=== PATIENT | male | born 1975 | race Caucasian/White ===

== ENCOUNTER 2018-05-30 11:47 | Outpatient (CLI) | payer OTHER, SELFPAY ==
[2018-05-30 12:50] LABS: Abs Immature Grans 0.04 k/cumm (0.0-0.09); Absolute Basophil Count 0.03 k/cumm (0.0-0.2); Absolute Monocyte Count 1.18 k/cumm (0.11-0.7); Basophils % 0.2; Eosinophils % 1.8; HCT 43.7 % (40.0-50.0); HGB 15.3 g/dL (13.5-17.5); Immature Grans % 0.3; Lymphocytes % 15.6; Mean Corpuscular Hemoglobin 31.4 pg (27.0-33.0); Mean Corpuscular Volume 89.5 fL (80-95); Mean Platelet Volume 11.5 fL (8.0-11.0); Neutrophils % 73.1; Platelet Count 202 x1000/uL (130-400); RBC 4.88 m/cumm (4.50-6.00); RBC Distribution Width 11.7 % (11.8-14.1)
[2018-05-30 12:51] LABS: Absolute Eosinophil Count 0.24 k/cumm (0.0-0.7); Absolute Lymphocyte Count 2.04 k/cumm (1.2-3.4); Absolute Neutrophil Count 9.58 k/cumm (1.2-6.7)
[2018-05-30 13:23] LABS: ALT 27 U/L (12-78); AST 20 U/L (15-37); Alkaline Phosphatase 109 U/L (46-116); Anion Gap 12.9 mmol/L (3-11); BUN 13 mg/dL (7-18); Bilirubin, Total 0.7 mg/dL (0.2-1.0); CO2 27.1 mmol/L (21.0-32.0); CREATININE 1.08 mg/dL (0.70-1.30); Calcium 9.8 mg/dL (8.5-10.1); Chloride 97 mmol/L (98-107); Glucose 96 mg/dL (70-100); Potassium 3.1 mmol/L (3.5-5.1); Sodium 137 mmol/L (136-145); TSH (W/Ref FT4) 1.77 uIU/mL (0.358-3.74); Total Protein 7.5 g/dL (6.4-8.2)
[2018-05-30 13:42] LABS: ESR 41 MM/HR (0-15)
== END 2018-05-30 12:07 ==
PROVIDERS: PCP Emergency Medicine; Visit Provider Internal Medicine
DX: R10.13 Epigastric pain (principal)
CPT/HCPCS: 36415; 80053; 85652; 84443; 85025

== ENCOUNTER 2018-05-30 13:18 | Emergency (ER) | payer OTHER, SELFPAY ==
[2018-05-30] VITALS (14 sets, daily range): BP systolic 201–234; BP diastolic 109–137; PULSE 81–88; RESP 10–20; TEMP 37.1; O2SAT 98–100
--- NOTE | 2018-05-30 13:34 | W.ED.GENAD ---
Discharge Plan Disposition Patient Disposition: HOME Condition: Stable Discharge Details Chief Complaint: Abd Prob Clinical Impression: Hypertension Primary Care Provider: Severo Potts ED Provider: Buddy Flores Home Meds and New Rx's Prescriptions: New hydrochlorothiazide 25 mg tablet 25 mg PO DAILY Qty: 30 RF: 0 Discharge Instructions Instructions: Hypertension (ED) Additional Instructions: follow up with your primary care provider in 1-2 weeks if you have severe abdominal pain or chest pain, difficulty breathing or persistent vomit return to the emergency department Medical Decision Making 43 yo male with no chronic medical problems though doesn't see pcp in over 8 years, comes in by ems for htn. Was seeing provider at [facility] as he has been having intermittent abdominal cramping and n/v since last . States he has no symptoms now, last had cramping in the lower abdomen this morning and vomit last night, denies chest pain or pressure. He is hypertensive here otherwise stable vitals and has no pain in the chest and no abdominal tenderness. Given his lack of symptoms now do not feel imaging indicated as he has no tenderness or exam findings to suggest appendicitis or other surgical pathology. given lack of chest pain or pressure doubt acs, but will check troponin to see if this was the cause of his vomit last night. Pt remains asymptomatic and labs unremarkable. Will start on antihypertensive and also give zofran to use prn, and advised f/u with pcp if abd cramping continues and return if worsening or if he has chest pain/pressure or sob Differential Diagnosis ibs, crohn's, asymptomatic htn Lab Data Lab results reviewed: Yes I reviewed the patient's lab results. ECG Data Attestation: I personally reviewed and interpreted this ECG (s) as follows: Prior ECG tracings: not available for review Interpretation: sinus rhythm, rate of 86, pr 156, lvh HPI General Mode of arrival: EMS. Date/Time Provider Initiated Documentation: 05/30/18 13:25. Limitations to Documentation: no limitations. Information obtained by: patient. History of Present Illness 43 year old M presents to the emergency department with the chief complaint of high blood pressure, Patient started experiencing this unknown Patient notes other (abdominal cramping). Patient did receive the following treatments prior to arrival, none Related Data Home Medications Medication Instructions Recorded Confirmed hydrochlorothiazide 25 mg PO DAILY #30 tab 05/30/18 Previous Rx's Medication Instructions Recorded hydrochlorothiazide 25 mg PO DAILY #30 tab 05/30/18 Allergies Allergy/AdvReac Type Severity Reaction Status Date / Time No Known Allergies Allergy Verified 05/30/18 13:26 General Stated Complaint: Abd Prob SHADY: 2 Review of Systems Review of Systems All systems reviewed & are unremarkable except as noted in HPI and below Constitutional Denies chills, Denies fever(s) and Denies weakness Eyes Denies loss of vision ENT Denies change in voice Cardiovascular Denies chest pain and Denies dyspnea Respiratory Denies dyspnea Genitourinary Denies dysuria Musculoskeletal Denies joint swelling Integumentary/Breasts Denies rash Neurologic Denies loss of vision and Denies weakness Psychiatric Denies depression Endocrine Denies cold intolerance and Denies heat intolerance Allergic/Immunologic Denies urticaria PFSH Social History Smoking/Tobacco Use Status: Current every day Exam Const General: no acute distress Orientation: alert HENMT Head: normal to inspection Ears: external ears normal General nose exam: external nose normal Mouth: moist mucous membranes Eyes General: appearance normal, both eyes and all related structures Neck Neck: normal visual inspection Resp Effort & Inspection: normal respiratory effort and able to speak in complete sentences Cardio Rate: regular rate Skin General skin exam: no rashes or lesions noted Neuro General: alert and oriented x3 Extrem General: normal to inspection Psych Mental Status: mental status grossly normal Course Vital Signs Temperature 37.1 C 05/30/18 13:23 Pulse 85 05/30/18 13:23 Respiratory Rate 13 05/30/18 13:23 Blood Pressure 234/121 H 05/30/18 13:23 Pulse Oximetry 100 05/30/18 13:23 Temperature 37.1 C 05/30/18 13:23 Temperature Source Temporal Artery Scan 05/30/18 13:23 Pulse 85 05/30/18 13:23 Respiratory Rate 13 05/30/18 13:23 Respiratory Effort Non-Labored 05/30/18 13:23 Blood Pressure 234/121 H 05/30/18 13:23 Blood Pressure Position Supine 05/30/18 13:23 Pulse Oximetry 100 05/30/18 13:23 Oxygen Delivery Method Room Air 05/30/18 13:23 Oxygen Flow Rate 0 05/30/18 13:23 Pain Level 0 05/30/18 13:23
--- NOTE | 2018-05-30 13:37 | ED.GENADUL_ITS ---
Discharge Plan Disposition Patient Disposition: HOME Condition: Stable Discharge Details Chief Complaint: Abd Prob Clinical Impression: Hypertension Primary Care Provider: Severo Potts ED Provider: Buddy Flores Home Meds and New Rx's Prescriptions: New hydrochlorothiazide 25 mg tablet 25 mg PO DAILY Qty: 30 RF: 0 Discharge Instructions Instructions: Hypertension (ED) Additional Instructions: follow up with your primary care provider in 1-2 weeks if you have severe abdominal pain or chest pain, difficulty breathing or persistent vomit return to the emergency department Medical Decision Making 43 yo male with no chronic medical problems though doesn't see pcp in over 8 years, comes in by ems for htn. Was seeing provider at [facility] as he has been having intermittent abdominal cramping and n/v since last . States he has no symptoms now, last had cramping in the lower abdomen this morning and vomit last night, denies chest pain or pressure. He is hypertensive here otherwise stable vitals and has no pain in the chest and no abdominal tenderness. Given his lack of symptoms now do not feel imaging indicated as he has no tenderness or exam findings to suggest appendicitis or other surgical pathology. given lack of chest pain or pressure doubt acs, but will check troponin to see if this was the cause of his vomit last night. Pt remains asymptomatic and labs unremarkable. Will start on antihypertensive and also give zofran to use prn, and advised f/u with pcp if abd cramping continues and return if worsening or if he has chest pain/pressure or sob Differential Diagnosis ibs, crohn's, asymptomatic htn Lab Data Lab results reviewed: Yes I reviewed the patient's lab results. ECG Data Attestation: I personally reviewed and interpreted this ECG (s) as follows: Prior ECG tracings: not available for review Interpretation: sinus rhythm, rate of 86, pr 156, lvh HPI General Mode of arrival: EMS . Date/Time Provider Initiated Documentation: 05/30/18 13:25 . Limitations to Documentation: no limitations . Information obtained by: patient . History of Present Illness 43 year old M presents to the emergency department with the chief complaint of high blood pressure, Patient started experiencing this unknown Patient notes other (abdominal cramping). Patient did receive the following treatments prior to arrival, none Related Data Home Medications Medication Instructions Recorded Confirmed hydrochlorothiazide 25 mg PO DAILY #30 tab 05/30/18 Previous Rx's Medication Instructions Recorded hydrochlorothiazide 25 mg PO DAILY #30 tab 05/30/18 Allergies Allergy/AdvReac Type Severity Reaction Status Date / Time No Known Allergies Allergy Verified 05/30/18 13:26 General Stated Complaint: Abd Prob SHADY: 2 Review of Systems Review of Systems All systems reviewed & are unremarkable except as noted in HPI and below Constitutional Denies chills, Denies fever(s) and Denies weakness Eyes Denies loss of vision ENT Denies change in voice Cardiovascular Denies chest pain and Denies dyspnea Respiratory Denies dyspnea Genitourinary Denies dysuria Musculoskeletal Denies joint swelling Integumentary/Breasts Denies rash Neurologic Denies loss of vision and Denies weakness Psychiatric Denies depression Endocrine Denies cold intolerance and Denies heat intolerance Allergic/Immunologic Denies urticaria PFSH Social History Smoking/Tobacco Use Status: Current every day Exam Const General: no acute distress Orientation: alert HENMT Head: normal to inspection Ears: external ears normal General nose exam: external nose normal Mouth: moist mucous membranes Eyes General: appearance normal, both eyes and all related structures Neck Neck: normal visual inspection Resp Effort & Inspection: normal respiratory effort and able to speak in complete sentences Cardio Rate: regular rate Skin General skin exam: no rashes or lesions noted Neuro General: alert and oriented x3 Extrem General: normal to inspection Psych Mental Status: mental status grossly normal Course Vital Signs Temperature 37.1 C 05/30/18 13:23 Pulse 85 05/30/18 13:23 Respiratory Rate 13 05/30/18 13:23 Blood Pressure 234/121 H 05/30/18 13:23 Pulse Oximetry 100 05/30/18 13:23 Temperature 37.1 C 05/30/18 13:23 Temperature Source Temporal Artery Scan 05/30/18 13:23 Pulse 85 05/30/18 13:23 Respiratory Rate 13 05/30/18 13:23 Respiratory Effort Non-Labored 05/30/18 13:23 Blood Pressure 234/121 H 05/30/18 13:23 Blood Pressure Position Supine 05/30/18 13:23 Pulse Oximetry 100 05/30/18 13:23 Oxygen Delivery Method Room Air 05/30/18 13:23 Oxygen Flow Rate 0 05/30/18 13:23 Pain Level 0 05/30/18 13:23
[2018-05-30] MEDS: Hydrochlorothiazide 25 MG TAB PO (13:45)
[2018-05-30 14:05] LABS: Troponin I < 0.02 ng/mL (0.00-0.06)
== END 2018-05-30 14:40 | disposition home or self-care (01) ==
PROVIDERS: Emergency Provider Emergency Medicine; PCP Emergency Medicine
DX: I10 Essential (primary) hypertension (principal); R10.9 Unspecified abdominal pain; R11.2 Nausea with vomiting, unspecified
CPT/HCPCS: 36415; 93005; 99284; 84484; 93010

== ENCOUNTER 2018-05-31 09:15 | Emergency (ER) | payer OTHER, SELFPAY ==
[2018-05-31 09:20] VITALS: BP 206/133; PULSE 94; RESP 18; TEMP 36.5; O2SAT 100
--- NOTE | 2018-05-31 09:26 | ED.GENADUL_ITS ---
Discharge Plan Disposition Patient Disposition: HOME Condition: Stable Discharge Details Chief Complaint: Abd Prob Clinical Impression: Pancreatitis, Hypertension Primary Care Provider: Severo Potts ED Provider: Buddy Flores Home Meds and New Rx's Prescriptions: New oxycodone 5 mg tablet, oral only 5 mg PO Q4H PRN (Reason: pain) Qty: 10 RF: 0 Continue potassium chloride 10 mEq capsule, extended release 10 meq PO BID Qty: 14 RF: 2 ondansetron 8 mg tablet,disintegrating 8 mg PO BID PRN (Reason: nausea and vomiting) Qty: 10 RF: 2 hydrochlorothiazide 25 mg tablet 25 mg PO DAILY Qty: 30 RF: 0 Discharge Instructions Instructions: Pancreatitis (ED) Additional Instructions: follow up with your primary care provider in 1-2 weeks if you have severe pain you can take oxycodone 1 tablet every 4 hours avoid alcohol if you have severe worsening of pain, difficulty breathing or high fevers return to the emergency department Medical Decision Making pt comes in with intermittent abdominal cramping and n/v worse at night for about a week. Was sent here from pcp's office yesterday for asymptomatic htn and had negative labs and sent home. AGain had cramping last night and this AM so came here and had cp with vomit so came here. HAs mild epigastric pain. Given his HTN and abd pain and chest pain will eval for dissection and also pancreatitis/hepatitis and monitor labs show lipase of over 1000 and K of 2.9 otherwise unremarkable. Awaiting imaging. Still no pain or n/v here, toleating po PT's CTA per Dr. Santamaria shows evidence of pancreatitis, no gallstones or other significant pathology and trigycerides normal. He states he was dirnking alcohol daily but hasn't for over a week. He is tolerating PO and has no pain now so feel he is stable for outpatient management. He will f/u with his pcp and return precautions given Differential Diagnosis dissection, ibs, pancreatitis Lab Data Lab results reviewed: Yes I reviewed the patient's lab results. ECG Data Attestation: I personally reviewed and interpreted this ECG (s) as follows: Prior ECG tracings: not available for review Interpretation: sinus rhythm, rate of 86 pr 150, no acute st t wave ischemic changes HPI General Mode of arrival: ambulatory . Date/Time Provider Initiated Documentation: 05/31/18 09:19 . Limitations to Documentation: no limitations . Information obtained by: patient . History of Present Illness 43 year old M presents to the emergency department with the chief complaint of abdominal cramping, with intensity rated at 5. Quality is described as aching, Patient reports no radiation. Patient started experiencing this week (s) (1) and it has been intermittent. No relieving factors improve symptom(s ), No exacerbating factors reported . Patient notes nausea/vomiting. Related Data Home Medications Medication Instructions Recorded Confirmed hydrochlorothiazide 25 mg PO DAILY #30 tab 05/30/18 05/31/18 ondansetron 8 mg disintegrating 8 mg PO BID PRN #10 tab 05/30/18 05/31/18 tablet potassium chloride ER 10 mEq 10 meq PO BID #14 cap 05/30/18 05/31/18 capsule,extended release oxycodone 5 mg PO Q4H PRN #10 tab 05/31/18 Previous Rx's Medication Instructions Recorded hydrochlorothiazide 25 mg PO DAILY #30 tab 05/30/18 ondansetron 8 mg disintegrating 8 mg PO BID PRN #10 tab 05/30/18 tablet potassium chloride ER 10 mEq 10 meq PO BID #14 cap 05/30/18 capsule,extended release oxycodone 5 mg PO Q4H PRN #10 tab 05/31/18 Allergies Allergy/AdvReac Type Severity Reaction Status Date / Time No Known Allergies Allergy Verified 05/31/18 09:24 General Stated Complaint: Abd Prob SHADY: 3 Review of Systems Review of Systems All systems reviewed & are unremarkable except as noted in HPI and below Constitutional Denies chills, Denies fever(s) and Denies weakness Eyes Denies loss of vision ENT Denies change in voice Cardiovascular Denies dyspnea Respiratory Denies dyspnea Genitourinary Denies dysuria Musculoskeletal Denies joint swelling Integumentary/Breasts Denies rash Neurologic Denies loss of vision and Denies weakness Psychiatric Denies depression Endocrine Denies cold intolerance and Denies heat intolerance Allergic/Immunologic Denies urticaria Exam Const General: no acute distress Orientation: alert HENMT Head: normal to inspection Ears: external ears normal General nose exam: external nose normal Mouth: moist mucous membranes Eyes General: appearance normal, both eyes and all related structures Neck Neck: normal visual inspection Resp Effort & Inspection: normal respiratory effort and able to speak in complete sentences Cardio Rate: regular rate Skin General skin exam: no rashes or lesions noted Neuro General: alert and oriented x3 Extrem General: normal to inspection Psych Mental Status: mental status grossly normal Course Vital Signs Temperature 36.5 C 05/31/18 09:20 Pulse 94 H 05/31/18 09:20 Respiratory Rate 18 05/31/18 09:20 Blood Pressure 206/133 H 05/31/18 09:20 Pulse Oximetry 100 05/31/18 09:20 Temperature 36.5 C 05/31/18 09:20 Pulse 94 H 05/31/18 09:20 Respiratory Rate 18 05/31/18 09:20 Respiratory Effort 05/31/18 09:23 Blood Pressure 206/133 H 05/31/18 09:20 Blood Pressure Position Supine 05/31/18 09:20 Pulse Oximetry 100 05/31/18 09:20 Oxygen Delivery Method Room Air 05/31/18 09:20 Oxygen Flow Rate 0 05/31/18 09:20
[2018-05-31] MEDS: Normal Saline 1,000 ML 1000 ML IV (09:30)
[2018-05-31 09:43] LABS: Lactate-non-spesis 1.2 mmol/L (0.6-1.4)
[2018-05-31 09:45] LABS: Abs Immature Grans 0.05 k/cumm (0.0-0.09); Absolute Basophil Count 0.03 k/cumm (0.0-0.2); Absolute Eosinophil Count 0.18 k/cumm (0.0-0.7); Absolute Lymphocyte Count 1.98 k/cumm (1.2-3.4); Absolute Monocyte Count 1.48 k/cumm (0.11-0.7); Absolute Neutrophil Count 11.53 k/cumm (1.2-6.7); Basophils % 0.2; Eosinophils % 1.2; HCT 44.5 % (40.0-50.0); Immature Grans % 0.3; Mean Corpuscular Hemoglobin 31.6 pg (27.0-33.0); Mean Corpuscular Volume 87.9 fL (80-95); Mean Platelet Volume 11.4 fL (8.0-11.0); Monocytes % 9.7; Neutrophils % 75.6; Platelet Count 210 x1000/uL (130-400); RBC 5.06 m/cumm (4.50-6.00); RBC Distribution Width 11.6 % (11.8-14.1); White Blood Cell Count 15.25 k/cumm (4.4-10.8)
[2018-05-31 10:01] LABS: PTT Activated 30.3 sec (21.0-31.4); Prothrombin Time 11.2 sec (9.3-10.8)
[2018-05-31 10:05] LABS: INR 1.1 (1.0-3.5)
[2018-05-31 10:07] LABS: ALT 27 U/L (12-78); AST 16 U/L (15-37); Alkaline Phosphatase 115 U/L (46-116); Anion Gap 12.2 mmol/L (3-11); BUN 14 mg/dL (7-18); Bilirubin, Direct 0.19 mg/dL (0.00-0.20); Bilirubin, Total 0.8 mg/dL (0.2-1.0); CO2 27.8 mmol/L (21.0-32.0); CREATININE 1.06 mg/dL (0.70-1.30); Chloride 93 mmol/L (98-107); Glucose 107 mg/dL (70-100); Lipase 1031 U/L (73-393); Magnesium 1.8 mg/dL (1.8-2.4); Sodium 133 mmol/L (136-145); Total Protein 8.6 g/dL (6.4-8.2)
[2018-05-31 10:46] LABS: Potassium 2.9 mmol/L (3.5-5.1); Troponin I < 0.02 ng/mL (0.00-0.06)
--- NOTE | 2018-05-31 11:19 | DI.CT_ITS ---
SYMPTOM/DIAGNOSIS: HYPERTENSION, CHEST AND ABD PAIN, ? DISSECTION CTA CHEST, ABDOMEN AND PELVIS: CT angiography was performed with multi slice acquisition and multi planar and 3D reconstruction. CHEST: The thoracic aorta is intact. No evidence of an aneurysm or dissection. Heart size is within normal limits. No significant pericardial effusion is seen. No mediastinal or hilar adenopathy is present. No evidence of a pulmonary embolus is seen. The lungs are clear. The tracheobronchial tree is unremarkable. No effusion or pneumothorax is identified. IMPRESSION: Negative CTA of the chest ABDOMEN AND PELVIS: The liver, spleen, gallbladder, bile ducts, kidneys, ureters and bladder are all unremarkable. The reproductive organs are unremarkable. There is a 1.9 cm. adrenal nodule, likely reflecting an adenoma. The right adrenal gland appears unremarkable. There is enlargement of the body of the pancreas with peripancreatic inflammatory changes. There is an area of decreased attenuation seen within the body of the pancreas. The findings likely reflect acute pancreatitis with an area of pancreatic necrosis. The area of necrosis accounts for less than 15% of the pancreas. No peripancreatic fluid collections are seen to suggest abscess or pseudocyst. The bowel shows no evidence of obstruction or inflammation. The abdominal aorta is of normal caliber. No evidence of aneurysm or dissection is seen. The celiac artery, mesenteric arteries and renal arteries are all unremarkable without evidence of dissection or stenosis or occlusion. The bones are intact. IMPRESSION: 1. No evidence of arterial injury. 2. Findings consistent with acute pancreatitis with an area of necrosis which occupies less than 15% of the pancreas. No evidence of abscess or pseudocyst. The findings were discussed with Dr Flores on the date of the examination.
[2018-05-31] MEDS: Omnipaque 350 MG/ML 100 ML BTL IJ (11:22)
[2018-05-31] MEDS: Potassium Chloride 20 MEQ TABCR 40 MEQ PO (11:44)
[2018-05-31 12:02] LABS: Triglyceride 121 mg/dL (30-150)
[2018-05-31 12:48] VITALS: BP 198/99; PULSE 94; RESP 18; TEMP 36.5; O2SAT 100
== END 2018-05-31 12:49 | disposition home or self-care (01) ==
PROVIDERS: Emergency Provider Emergency Medicine; PCP Emergency Medicine
DX: K85.90 Acute pancreatitis without necrosis or infection, unspecified (principal); I10 Essential (primary) hypertension; R10.13 Epigastric pain; R11.2 Nausea with vomiting, unspecified; E87.6 Hypokalemia
CPT/HCPCS: 36415; 74177; 80053; 80076; 83690; 96360; 99285; 83605; 83735; 84478; 84484; 85025; 85610; 85730; J3490

== ENCOUNTER 2018-06-03 13:09 | Inpatient (IN) | payer OTHER, SELFPAY ==
[2018-06-03] VITALS (10 sets, daily range): BP systolic 191–226; BP diastolic 92–143; PULSE 81–100; RESP 16–18; TEMP 36.9–37.9; O2SAT 97–100
[2018-06-03] MEDS: Enoxaparin 40 MG/0.4 ML SYR SC (14:02)
[2018-06-03] MEDS: Lactated Ringers 1,000 ML 1000 ML IV (14:19)
[2018-06-03] MEDS: Normal Saline Flush 10 ML SYR ×2 (14:20→16:32)
[2018-06-03] MEDS: Lactated Ringers 1,000 ML 150 ML IV ×2 (15:38→22:50)
--- NOTE | 2018-06-03 15:53 | HPE_ITS ---
Date of service: 06/03/18 Time of Service: 15:47 Assessment and Plan (1) Acute pancreatitis: Current visit: Yes Status: Acute Diagnosis of acute pancreatitis is previously been made at the emergency room valuation of 05/31/2018. Acute onset and findings on CAT scan and elevated lipase are all consistent with this diagnosis. He has failed conservative management as an outpatient, although his pancreatitis is classified as mild given lack of other organ involvement, will be admitted for supportive care and additional testing. Etiology of pancreatitis is uncertain. He did drink some alcohol, but denies recent heavy alcohol use. No gallstones were seen on CT scan, but I will get an ultrasound to specifically look for any biliary stones or ductal dilatation or sludge. CT did not show abnormal anatomy of the pancreas. Glycerides were normal. No history of trauma or other exposures. He is on hydrochlorthiazide, but this was started after the pancreatitis started. In fact, he was on no medications or supplements when the pancreatitis started. (2) Essential hypertension: Current visit: No Status: Acute Patient has severe hypertension despite the hydrochlorothiazide and metoprolol that has been started in the last week. And added lisinopril for now , but I have also ordered renin level and aldosterone. With his low potassium he may have hyperaldosteronemia. No adrenal masses were noted. He had a recent normal thyroid level. He does not appear to be in alcohol withdrawal. (3) Hypokalemia: Current visit: Yes Status: Acute This may be related to vomiting, but hyperaldosteronemia is also in the differential. He has been taking oral potassium. I will check the levels with labs. (4) DVT prophylaxis: Current visit: Yes Status: Acute Low molecular weight heparin. (5) Discharge planning issues: Current visit: Yes Status: Acute Full code. History of Present Illness Chief Complaint: abdominal pain Narrative: 43-year-old with only known past medical history of untreated hypertension who presents with 11 days of nausea and vomiting associated with crampy abdominal pain associated with eating. Patient states his symptoms started with acute nausea and vomiting 11 days ago. On , 23 May he was at a friend's house eating dinner. He states he ate pork ribs of mashed potatoes, and had 2 beers with dinner exactly. Nobody else ate the dinner got sick. Before that night, last time he had any alcohol was May 17 at a [employer]. Since the night of the , he has had persistent nausea and vomiting with eating. Associated with sharp to crampy pain across his epigastrium and poor appetite and frequent belching.. Even drinking more than a few sips gives him stomach cramps and nausea. He has lost 15 pounds over the last 2 weeks. He has not had diarrhea, blood in stool, or other bowel changes. The vomitus has been watery. Was seen by his primary care on the , then in the emergency room on the and the . He was diagnosed with pancreatitis on the with lipase over thousand and CAT scan showing pancreatitis. Elected to try to manage as an outpatient, but has been unable to take adequate adequate p.o. fluids. He has never had these symptoms previously. He denies any recent abdominal trauma. He denies taking any medication or supplements or drugs prior to onset of symptoms. He was given hydrochlorthiazide for his blood pressure, but this was started after the pancreatitis was diagnosed. He has not had any recent travel or new sexual partners. He states he has never had an alcohol use disorder, but has been cutting back deliberately in the past 2 months on his alcohol intake, in effort to feel better. Review of Systems Review of Systems Denies fevers or chills. Weight loss as above. Has had some frontal headaches , but not currently. No eye pain or vision changes or eye irritation. No sore throat or runny nose or mouth lesions. No heartburn. No diarrhea constipation. No dysuria or hematuria or penile discharge. No testicular pain. No chest pain, as felt like his heart is racing. No cough or shortness of breath. No rashes or other skin lesions. No joint swelling or new pain. No focal numbness or weakness or tremors or other abnormal movements. [facility] Medical History Amput below terence rosas (Acute) Social History Smoking/Tobacco Use Status: Current every day Meds Home Medications Medication Instructions Recorded Confirmed Type hydrochlorothiazide 25 mg PO DAILY #30 tab 05/30/18 06/03/18 Rx potassium chloride ER 10 mEq 10 meq PO BID #14 cap 05/30/18 06/03/18 Rx capsule,extended release metoprolol succinate ER 50 mg 50 mg PO BID #30 tab 06/01/18 06/03/18 Rx tablet,extended release 24 hr Allergies Allergy/AdvReac Type Severity Reaction Status Date / Time No Known Allergies Allergy Verified 06/03/18 10:42 Exam Narrative Exam Narrative: General: Alert and oriented x3, sitting in bed, no acute distress HEENT: Normocephalic atraumatic, pupils equal round reactive to light with extraocular motion intact. Conjunctive are clear with no icterus. Moist mucous membranes oropharynx benign. Neck is supple with no lymphadenopathy and normal thyroid. Lungs: Clear to auscultation bilaterally normal effort Cardiovascular: Regular rate and rhythm with no murmurs gallops or rubs Abdomen: Active bowel sounds, soft, mild to moderate tenderness across epigastrium, more on the left side, negative Terry's. No guarding or rebound. Extremities: No cyanosis, clubbing, or edema. Legs nontender to palpation. MSK: Normal joint movement, no joint swelling or redness Skin: No rashes, large bruises, or other skin lesions Neurologic: Cranial nerves grossly intact, normal speech, gait, coordination. No tremor. Psychiatric: Normal mood and affect, normal thought process Imaging: CT chest abdomen and pelvis with contrast 05/31/2018 showing no evidence of arterial injury. Findings consistent with acute pancreatitis and area of necrosis which occupies less than 15% of the pancreas. No evidence of abscess or pseudocyst. Negative CTA of the chest ESR: 41 Lipase: 1031 Triglycerides: 121 CBC, CMP, magnesium, coags, and cardiac troponins, all normal except low potassium and sodium of 133 Results Last Vital Signs Temp 36.9 C 06/03/18 15:36 Pulse 95 H 06/03/18 15:36 Resp 18 06/03/18 15:36 BP 226/139 H 06/03/18 15:36 Pulse Ox 100 06/03/18 15:36
[2018-06-03] MEDS: Pantoprazole 40 MG VIAL IVP (16:31)
[2018-06-03] MEDS: Metoprolol CR 50 MG TABCR PO (19:27)
[2018-06-03] MEDS: Labetalol 100 MG/20 ML VIAL 20 MG IVP (20:54)
[2018-06-03] MEDS: amLODIPine 5 MG TAB PO (21:12)
[2018-06-04] VITALS (10 sets, daily range): BP systolic 179–200; BP diastolic 93–108; PULSE 74–92; RESP 15–20; TEMP 36.7–37.5; O2SAT 97–99
[2018-06-04 06:50] LABS: Abs Immature Grans 0.04 k/cumm (0.0-0.09); Absolute Basophil Count 0.02 k/cumm (0.0-0.2); Absolute Eosinophil Count 0.29 k/cumm (0.0-0.7); Absolute Lymphocyte Count 1.42 k/cumm (1.2-3.4); Absolute Monocyte Count 1.38 k/cumm (0.11-0.7); Absolute Neutrophil Count 8.29 k/cumm (1.2-6.7); Basophils % 0.2; Eosinophils % 2.5; HCT 36.2 % (40.0-50.0); HGB 12.9 g/dL (13.5-17.5); Immature Grans % 0.3; Lymphocytes % 12.4; Mean Corp. HGB Concentration 35.6 g/dL (32.0-36.0); Mean Corpuscular Hemoglobin 31.4 pg (27.0-33.0); Mean Corpuscular Volume 88.1 fL (80-95); Monocytes % 12.1; Neutrophils % 72.5; Platelet Count 172 x1000/uL (130-400); RBC 4.11 m/cumm (4.50-6.00); RBC Distribution Width 11.3 % (11.8-14.1); White Blood Cell Count 11.44 k/cumm (4.4-10.8)
[2018-06-04 07:05] LABS: ALT 14 U/L (12-78); AST 12 U/L (15-37); Albumin 2.8 g/dL (3.4-5.0); Alkaline Phosphatase 93 U/L (46-116); Anion Gap 9.6 mmol/L (3-11); BUN 10 mg/dL (7-18); Bilirubin, Total 0.7 mg/dL (0.2-1.0); CO2 29.4 mmol/L (21.0-32.0); CREATININE 0.89 mg/dL (0.70-1.30); Calcium 8.9 mg/dL (8.5-10.1); Chloride 95 mmol/L (98-107); Cholesterol 164 mg/dL (50-200); Glucose 105 mg/dL (70-100); HDL Cholesterol 20 mg/dL (40-60); LDL CHOLESTEROL 127 mg/dL (<100); Sodium 134 mmol/L (136-145); TSH (W/Ref FT4) 3.04 uIU/mL (0.358-3.74); Total Protein 6.9 g/dL (6.4-8.2); Triglyceride 94 mg/dL (30-150)
[2018-06-04 07:13] LABS: Potassium 2.5 mmol/L (3.5-5.1)
--- NOTE | 2018-06-04 08:25 | DI.US_ITS ---
SYMPTOM/DIAGNOSIS: 44 YEAR OLD WITH PANCREATITIS ABDOMINAL ULTRASOUND: Comparison CT scan is 05/31/18. The study is limited due to overlying bowel gas. The mid and distal aorta were not visualized. The proximal aorta is of normal caliber. The inferior vena cava is unremarkable. The liver is normal in size. No hepatic mass is seen. The gallbladder is unremarkable. No stones or gallbladder wall thickening is seen. The common duct is within normal limits at 0.2 cm. The spleen and kidneys are unremarkable. There is a hypoechoic area seen in the body of the stomach. This appears to correspond to the area of necrosis seen on the CT scan from 05/31/18.The area measures roughly 2.2 cm. IMPRESSION: Area of decreased attenuation seen in the body of the stomach likely reflecting an area of necrosis. It does not appear to be significantly changed in size compared to the CT scan from 05/31/18. 2. No evidence of cholelithiasis or biliary ductal dilatation.
[2018-06-04] MEDS: Metoprolol CR 50 MG TABCR PO ×2 (08:31→21:13)
[2018-06-04] MEDS: Spironolactone 25 MG TAB PO ×2 (08:31→21:13)
[2018-06-04] MEDS: amLODIPine 5 MG TAB PO (08:32)
[2018-06-04] MEDS: Lisinopril 10 MG TAB PO (08:32)
[2018-06-04] MEDS: Lactated Ringers 1,000 ML 150 ML IV ×2 (08:36→17:31)
--- NOTE | 2018-06-04 08:48 | PDOC.CMIN ---
- If Service Date Differs Date of service: 06/04/18 Time of Service: 08:49 Care Management Initial Assess REASON FOR HOSPITALIZATION:: Pancreatitis and Dehydration. PAST MEDICAL HISTORY/PAST SURGICAL HISTORY:: Right arm amputation r/t trauma in 2004 PREVIOUS FUNCTIONAL STATUS/SOCIAL/FAMILY SUPPORTS:: Jason lives alone with his two dogs in [place], [place]. 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 He is independent at baseline. CURRENT FUNCTIONAL STATUS:: Jason is walking around the room he states he continues to have pain in his abdoman. He states that his last use of alcohol was on 05/17/18. CM reviewed reason for not using alcohol. Jason states he wanted to stop using alcohol. He denies all other questions on the CAGE assessment. Jason did have vomiting today and is receiving Zofran. Has patient been provided with information about the portal?: Yes Did the patient sign up for the portal?: No CODE STATUS:: Full Code INSURANCE COVERAGE / FINANCIAL ISSUES:: [employer] CURRENT HOME/COMMUNITY SERVICES/EQUIPMENT:: No current home services PRIMARY CARE PHYSICIAN:: POTENTIAL DISCHARGE NEEDS:: Follow up appointment with primary care provider scheduled prior to discharge. PATIENT/FAMILY EDUCATION NEEDS:: Discharge education, limitaitons and follow up plan of care including ask me three and slef management. ANTICIPATED BARRIERS TO DISCHARGE:: None identified. TRANSPORTATION:: Via private car with friend at time of discharge. PLAN:: Jason is receiving IV fluids, antibioitcs and pain management. His blood pressure is being treated with new medications and a CIWA was ordered. Jason will be discharged when medically ready per provider he will have no anticpated services at time of discharge.
--- NOTE | 2018-06-04 08:51 | INITIAL_ITS ---
- If Service Date Differs Date of service: 06/04/18 Time of Service: 08:49 Care Management Initial Assess REASON FOR HOSPITALIZATION:: Pancreatitis and Dehydration. PAST MEDICAL HISTORY/PAST SURGICAL HISTORY:: Right arm amputation r/t trauma in 2004 PREVIOUS FUNCTIONAL STATUS/SOCIAL/FAMILY SUPPORTS:: Jason lives alone with his two dogs in [place], [place]. 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 He is independent at baseline. CURRENT FUNCTIONAL STATUS:: Jason is walking around the room he states he continues to have pain in his abdoman. He states that his last use of alcohol was on 05/17/18. CM reviewed reason for not using alcohol. Jason states he wanted to stop using alcohol. He denies all other questions on the CAGE assessment. Jason did have vomiting today and is receiving Zofran. Has patient been provided with information about the portal?: Yes Did the patient sign up for the portal?: No CODE STATUS:: Full Code INSURANCE COVERAGE / FINANCIAL ISSUES:: [employer] CURRENT HOME/COMMUNITY SERVICES/EQUIPMENT:: No current home services PRIMARY CARE PHYSICIAN:: POTENTIAL DISCHARGE NEEDS:: Follow up appointment with primary care provider scheduled prior to discharge. PATIENT/FAMILY EDUCATION NEEDS:: Discharge education, limitaitons and follow up plan of care including ask me three and slef management. ANTICIPATED BARRIERS TO DISCHARGE:: None identified. TRANSPORTATION:: Via private car with friend at time of discharge. PLAN:: Jason is receiving IV fluids, antibioitcs and pain management. His blood pressure is being treated with new medications and a CIWA was ordered. Jason will be discharged when medically ready per provider he will have no anticpated services at time of discharge.
[2018-06-04] MEDS: Potassium Chloride 20 MEQ TABCR 40 MEQ PO ×2 (09:04→15:33)
[2018-06-04 09:11] LABS: Lipase 1241 U/L (73-393)
[2018-06-04] MEDS: POTASSIUM CHLORIDE 10 MEQ/100 ML BAG 100 MEQ IVPB ×2 (09:24→13:04)
[2018-06-04] MEDS: Ondansetron 4 MG/2 ML VIAL IVP (10:40)
[2018-06-04] MEDS: Normal Saline Flush 10 ML SYR IVP ×3 (11:44→15:34)
[2018-06-04] MEDS: MAGNESIUM SULFATE 1 GM/100 ML BAG IVPB (11:44)
--- NOTE | 2018-06-04 11:50 | DI.CT_ITS ---
SYMPTOM/DIAGNOSIS: PANCREATITIS WITH WORSENING SYMPTOMS CT ABDOMEN: CT scan of the abdomen was performed following the uneventful administration of intravenous contrast material. Comparison examination 05/31/18. The pancreas again shows fulness in the body with peripancreatic and inflammatory changes. There is an area of decreased attenuation in the body of the pancreas which has increased in size measuring 5.1 cm x 2.4 cm consistent with an area of pancreatic necrosis. There are also new areas of decreased attenuation seen near the tail of the pancreas. Overall, the area of pancreatic necrosis appears to occupy 30-40% of the pancreas. No focal peripancreatic fluid collections are seen to suggest abscess or pseudo cyst. The liver, gallbladder, bile ducts, and spleen are unremarkable. There is again seen a hypodense nodule in the left adrenal gland which may represent an adrenal adenoma. The kidneys show normal and symmetric enhancement. No evidence of a solid renal mass or obstruction. The abdominal aorta is of normal caliber. No significant abdominal or pelvic ascites or pneumoperitoneum is present. There are mildly enlarged lymph nodes seen around the pancreas likely reactive in nature. The splenic vein is attenuated near its junction with the superior mesenteric vein but no definite evidence of thrombosis is identified. The superior mesenteric and portal veins are patent. The bowel is grossly unremarkable apart from a small hiatal hernia. IMPRESSION: 1. 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 The area of necrosis now appears to occupy 30-40% of the pancreas. 2. Attenuation of the splenic vein but no evidence of splenic vein thrombosis. 3. No peripancreatic fluid collection seen to suggest pseudo cyst or abscess.
[2018-06-04] MEDS: Omnipaque 350 MG/ML 100 ML BTL IJ (11:55)
--- NOTE | 2018-06-04 14:09 | PHARADMIT ---
Addendum entered by Danis San III 06/06/18 15:42: Pharmacy Note Subjective Renin-Aldosterone study ordered, has ordered multiple meds to treat elevated BP. MD Rober to continue to be sure patient has complted withdrawal, (last drink 05/17). Objective BP- 189/105 Pain; 01/29 K+3.3 Lipase-838 H&H,Plts-OK WBC-Steady, No BM (MagCitrate given) Assessment Lisinopril to 20mg, Spironolactone 50mg bid, Amlodipine 10mg, Toprol-XL 100MG, Plan Acute pancratitis not resolved. Original Note: Addendum entered by Rebecca Umana 06/05/18 13:42: Pharmacy Note Subjective pt with necrotizing pancreatitis with a fever, CIWA continues Objective one temp febrile 38.1@ 0720, bp 182/117, K 2.8, Mag 1.7, CIWA 0 Assessment amlodipine dose increased, mag and KCL doses ordered, Plan watch lytes, if pt continues with fevers MD states he will add antibiotics(carbapenem and metronidazole), continue CIWA Original Note: Admission Pharmacy Clinical Review Acute pancreatitis Code Status Full Code Current Weight 75.5 kg Renally Cleared and Narrow Therapeutic Index Meds Crcl ~104.00 mL/min current meds okay QTc Value / Action Taken QTc 486 has ondansetron ordered BP Control, Fever BP-175/105 afebrile Electrolytes reviewed Na 134 K+2.5 Cl 95 DVT Prophylaxis enoxaparin Opiate Usage / Scheduled Bowel Regimen Ordered prn/no Plt/SCr for Heparin / Enoxaparin plt 172 SCr 0.89 INR for Warfarin n/a H/H stable, WBC/Bands h/h 12.9/36.2 wbc 11.44 Antibiotic appropriateness none Cultures and Sensitivities none Surgical ABX d/c within 24 hr n/a DM control / Insulin Dosing BG 105 none Heart Failure (Check EF%) (EDGAR's, B-Block, Diuretics) amlodipine, labetalol, lisinopril, metoprolol, spironolactone IV to PO Switch n/a Home Meds Reviewed yes Home Meds Not Ordered HCTZ, potassium (has had one time doses but nothing scheduled) Comments
--- NOTE | 2018-06-04 14:13 | PGE_ITS ---
Date of Service Date of service: 06/04/18 Time of Service: 14:34 Assessment and Plan (1) Acute pancreatitis: Current visit: Yes Status: Acute Diagnosis of acute pancreatitis in patient with a significant prior history of ETOH use. Imaging without evidence of gallstones, and TG's normal. Of note, patient's thiazide was started following initial outpatient diagnosis of Pancreatitis. Given worsening pain, symptoms, and lipase a repeat CT was obtained, and compared to last imaging on 05/31 shows worsening area of necrosis, now encompassing approximately 40% of the pancreas. Currently on IVFs. Downgrade diet to clear liquids, continue pain control and anti-emetics. No evidence of pseudocyst or abscess, and patient remains afebrile. Given rapid worsening of imaging results also discussed case with GI at [facility] who agrees with continued supportive care at this time, without other intervention. (2) Essential hypertension: Current visit: No Status: Acute Patient has severe hypertension despite attempts at control with HCTZ and BB as outpatient. Rrenin and aldosterone ordered and pending to rule out a hyperaldo state. No adrenal masses were noted by imaging, and recent TSH was normal. Continue BB, add CCB, and increase frequency of Spironolactone added overnight. Continue to monitor renal function and electrolytes. (3) Hypokalemia: Current visit: Yes Status: Acute This may be related to vomiting, but hyperaldosteronemia is also in the differential. Continue to replete aggressively and monitor closely. (4) Excessive drinking alcohol: Current visit: Yes Status: Acute Reported significant prior daily alcohol intake, but now with last drink reported on May 17. Patient appears stable, but given significant HTN cannot entirely rule out withdrawl - will maintain on CIWA with standing Oxazepam and Gabapentin until withdrawl is definitively ruled out. (5) DVT prophylaxis: Current visit: Yes Status: Acute SC Lovenox. Subjective Interval history since last seen: 43-year-old man with a prior history of hypertension, admitted on 06/03 with a diagnosis of acute pancreatitis. Mr. Ryder had an 11 day history of nausea and vomiting associated with crampy postprandial abdominal pain that started after a meal at a friend's house. He also has an extensive history of alcohol use, but reports purposefully cutting back from 8+ beers nightly to 3, and with last alcohol intake on October 26 at a [employer] party. He has not had diarrhea, blood in stool, or other bowel changes, but has had persistent symptoms of abdominal pain, nausea, and vomiting with subsequent decrease in oral intake and weight loss. The patient was seen by his primary care on the , then in the emergency room on the and , diagnosed with pancreatitis with a lipase over a thousand [address] CT scan showing evidence of pancreatitis with an approximate 15% area of necrosis. Attempt at outpatient management failed and Mr. Ryder was referred for admission. This morning Mr. Ryder reports continued pain, nausea, and vomiting, not currently controlled. Objective Objective Clinical Data: Abnormal lab results 06/04/18 06/04/18 06/04/18 Range/Units 06:33 06:33 06:33 WBC 11.44 H (4.4-10.8) k/cumm RBC 4.11 L (4.50-6.00) m/cumm Hgb 12.9 L (13.5-17.5) g/dL Hct 36.2 L (40.0-50.0) % RDW 11.3 L (11.8-14.1) % Absolute Neutrophils 8.29 H (1.2-6.7) k/cumm Absolute Monocytes 1.38 H (0.11-0.7) k/cumm Sodium 134 L (136-145) mmol/L Potassium 2.5 L* (3.5-5.1) mmol/L Chloride 95 L (98-107) mmol/L Glucose 105 H (70-100) mg/dL AST 12 L (15-37) U/L Albumin 2.8 L (3.4-5.0) g/dL LDL Cholesterol Direct 127 H (<100) mg/dL HDL Cholesterol 20 L (40-60) mg/dL Lipase 1241 H (73-393) U/L Vital Signs Temperature 36.7 C 06/04/18 11:20 Temperature Source Tympanic 06/04/18 11:20 Pulse 80 06/04/18 12:13 Pulse Rhythm Regular 06/03/18 20:08 Respiratory Rate 20 06/04/18 11:20 Respiratory Effort Non-Labored 06/04/18 08:39 Respiratory Depth Normal 06/04/18 08:39 Respiratory Pattern Normal 06/04/18 08:39 Blood Pressure 179/105 H 06/04/18 12:13 Pulse Oximetry 99 06/04/18 11:20 Oxygen Delivery Method Room Air 06/04/18 11:20 Oxygen Flow Rate 0 06/04/18 11:20 Pain Level 0 06/04/18 07:29 Comment 06/04/18 07:29 Intake & Output 06/03/18 06/04/18 06/04/18 23:59 11:59 23:59 Intake Total 3070 / 3070 1030 / 1030 Output Total 400 / 400 600 / 600 Balance 2670 / 2670 430 / 430 Weight 78.018 kg 75.5 kg Intake: IV 2040 / 2040 1030 / 1030 Oral 1030 / 1030 Output: Urine 400 / 400 600 / 600 Other: Urine Color Straw Yellow Urine Appearance Clear Clear Urine Odor None Normal Comment Void x1 in the toilet. Voiding Methods Toilet Toilet Laboratory Results WBC 11.44 k/cumm (4.4-10.8) H 06/04/18 06:33 RBC 4.11 m/cumm (4.50-6.00) L 06/04/18 06:33 Hgb 12.9 g/dL (13.5-17.5) L 06/04/18 06:33 Hct 36.2 % (40.0-50.0) L 06/04/18 06:33 MCV 88.1 fL (80-95) 06/04/18 06:33 MCH 31.4 pg (27.0-33.0) 06/04/18 06:33 MCHC 35.6 g/dL (32.0-36.0) 06/04/18 06:33 RDW 11.3 % (11.8-14.1) L 06/04/18 06:33 Plt Count 172 x1000/uL (130-400) 06/04/18 06:33 MPV 11.0 fL (8.0-11.0) 06/04/18 06:33 Immature Gran % 0.3 06/04/18 06:33 Neutrophils % 72.5 06/04/18 06:33 Lymphocytes % 12.4 06/04/18 06:33 Monocytes % 12.1 06/04/18 06:33 Eosinophils % 2.5 06/04/18 06:33 Basophils % 0.2 06/04/18 06:33 Absolute Neutrophils 8.29 k/cumm (1.2-6.7) H 06/04/18 06:33 Absolute Lymphocytes 1.42 k/cumm (1.2-3.4) 06/04/18 06:33 Absolute Monocytes 1.38 k/cumm (0.11-0.7) H 06/04/18 06:33 Absolute Eosinophils 0.29 k/cumm (0.0-0.7) 06/04/18 06:33 Absolute Basophils 0.02 k/cumm (0.0-0.2) 06/04/18 06:33 Sodium 134 mmol/L (136-145) L 06/04/18 06:33 Potassium 2.5 mmol/L (3.5-5.1) L* 06/04/18 06:33 Chloride 95 mmol/L (98-107) L 06/04/18 06:33 Carbon Dioxide 29.4 mmol/L (21.0-32.0) 06/04/18 06:33 Anion Gap 9.6 mmol/L (3-11) 06/04/18 06:33 BUN 10 mg/dL (7-18) 06/04/18 06:33 Creatinine 0.89 mg/dL (0.70-1.30) 06/04/18 06:33 Estimated GFR/1.73 m2 >= 60.00 (mL/min/1.73m2) 06/04/18 06:33 Glucose 105 mg/dL (70-100) H 06/04/18 06:33 Calcium 8.9 mg/dL (8.5-10.1) 06/04/18 06:33 Total Bilirubin 0.7 mg/dL (0.2-1.0) 06/04/18 06:33 AST 12 U/L (15-37) L 06/04/18 06:33 ALT 14 U/L (12-78) 06/04/18 06:33 Alkaline Phosphatase 93 U/L (46-116) 06/04/18 06:33 Total Protein 6.9 g/dL (6.4-8.2) 06/04/18 06:33 Albumin 2.8 g/dL (3.4-5.0) L 06/04/18 06:33 Triglycerides 94 mg/dL (30-150) 06/04/18 06:33 Total Cholesterol 164 mg/dL (50-200) 06/04/18 06:33 LDL Cholesterol Direct 127 mg/dL (<100) H 06/04/18 06:33 HDL Cholesterol 20 mg/dL (40-60) L 06/04/18 06:33 Lipase 1241 U/L (73-393) H 06/04/18 06:33 TSH 3.04 uIU/mL (0.358-3.74) 06/04/18 06:33 Objective Narrative Objective Narrative: CT ABDOMEN: CT scan of the abdomen was performed following the uneventful administration of intravenous contrast material. Comparison examination 05/31/18. The pancreas again shows fulness in the body with peripancreatic and inflammatory changes. There is an area of decreased attenuation in the body of the pancreas which has increased in size measuring 5.1 cm x 2.4 cm consistent with an area of pancreatic necrosis. There are also new areas of decreased attenuation seen near the tail of the pancreas. Overall, the area of pancreatic necrosis appears to occupy 30-40% of the pancreas. No focal peripancreatic fluid collections are seen to suggest abscess or pseudo cyst. The liver, gallbladder, bile ducts, and spleen are unremarkable. There is again seen a hypodense nodule in the left adrenal gland which may represent an adrenal adenoma. The kidneys show normal and symmetric enhancement. No evidence of a solid renal mass or obstruction. The abdominal aorta is of normal caliber. No significant abdominal or pelvic ascites or pneumoperitoneum is present. There are mildly enlarged lymph nodes seen around the pancreas likely reactive in nature. The splenic vein is attenuated near its junction with the superior mesenteric vein but no definite evidence of thrombosis is identified. The superior mesenteric and portal veins are patent. The bowel is grossly unremarkable apart from a small hiatal hernia. IMPRESSION: 1. 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 The area of necrosis now appears to occupy 30-40% of the pancreas. 2. Attenuation of the splenic vein but no evidence of splenic vein thrombosis. 3. No peripancreatic fluid collection seen to suggest pseudo cyst or abscess.
[2018-06-04] MEDS: Gabapentin 400 MG CAP 800 MG PO ×2 (15:02→21:13)
[2018-06-04] MEDS: Enoxaparin 40 MG/0.4 ML SYR SC (15:03)
[2018-06-04] MEDS: Multivitamin TAB 1 TAB PO (15:32)
[2018-06-04] MEDS: Folic Acid 1 MG TAB PO (15:32)
[2018-06-04] MEDS: Thiamine 100 MG TAB PO (15:33)
[2018-06-04] MEDS: Pantoprazole 40 MG VIAL IVP (15:34)
[2018-06-05] VITALS (19 sets, daily range): BP systolic 147–202; BP diastolic 79–128; PULSE 77–97; RESP 16–19; TEMP 36.2–38.1; O2SAT 97–99
[2018-06-05] MEDS: Lactated Ringers 1,000 ML 150 ML IV ×4 (00:20→20:06)
[2018-06-05 06:38] LABS: Abs Immature Grans 0.05 k/cumm (0.0-0.09); Absolute Basophil Count 0.02 k/cumm (0.0-0.2); Absolute Lymphocyte Count 1.42 k/cumm (1.2-3.4); Absolute Monocyte Count 1.39 k/cumm (0.11-0.7); Basophils % 0.2; Eosinophils % 3.1; HGB 12.3 g/dL (13.5-17.5); Immature Grans % 0.4; Lymphocytes % 12.8; Mean Corp. HGB Concentration 35.1 g/dL (32.0-36.0); Mean Corpuscular Hemoglobin 31.8 pg (27.0-33.0); Mean Corpuscular Volume 90.4 fL (80-95); Mean Platelet Volume 11.1 fL (8.0-11.0); Monocytes % 12.5; Platelet Count 163 x1000/uL (130-400); RBC 3.87 m/cumm (4.50-6.00); RBC Distribution Width 11.3 % (11.8-14.1); White Blood Cell Count 11.13 k/cumm (4.4-10.8)
[2018-06-05 06:39] LABS: Absolute Eosinophil Count 0.35 k/cumm (0.0-0.7)
[2018-06-05 06:46] LABS: Anion Gap 6.6 mmol/L (3-11); BUN 6 mg/dL (7-18); CO2 31.4 mmol/L (21.0-32.0); CREATININE 0.73 mg/dL (0.70-1.30); Calcium 8.9 mg/dL (8.5-10.1); Chloride 97 mmol/L (98-107); Glucose 98 mg/dL (70-100); Lipase 1054 U/L (73-393); Sodium 135 mmol/L (136-145)
[2018-06-05 06:53] LABS: Potassium 2.8 mmol/L (3.5-5.1)
[2018-06-05] MEDS: Multivitamin TAB 1 TAB PO (07:44)
[2018-06-05] MEDS: amLODIPine 5 MG TAB PO ×2 (07:44→13:39)
[2018-06-05] MEDS: Spironolactone 25 MG TAB PO (07:44)
[2018-06-05] MEDS: Metoprolol CR 50 MG TABCR PO (07:44)
[2018-06-05] MEDS: Thiamine 100 MG TAB PO (07:44)
[2018-06-05] MEDS: Folic Acid 1 MG TAB PO (07:45)
[2018-06-05 08:11] LABS: Magnesium 1.7 mg/dL (1.8-2.4)
--- NOTE | 2018-06-05 08:26 | DI.RAD_ITS ---
SYMPTOMS/DIAGNOSIS: FEVER, ACUTE PANCREATITIS PA AND LATERAL CHEST: The heart is normal in size. The lungs are clear. The mediastinal structures and pleura appear intact. CONCLUSION: Normal chest.
[2018-06-05] MEDS: POTASSIUM CHLORIDE 20 MEQ/100 ML BAG 50 MEQ IVPB (08:55)
[2018-06-05] MEDS: Potassium Chloride 20 MEQ TABCR 40 MEQ PO ×2 (08:56→15:38)
[2018-06-05] MEDS: Labetalol 100 MG/20 ML VIAL 20 MG IVP ×2 (11:03→19:19)
[2018-06-05] MEDS: Polyethylene Glycol 3350 17 GM PACKET PO (11:03)
[2018-06-05] MEDS: Normal Saline Flush 10 ML SYR IVP ×4 (11:03→21:26)
[2018-06-05] MEDS: Magnesium Oxide 400 MG TAB PO (11:03)
--- NOTE | 2018-06-05 13:38 | PGE_ITS ---
Date of Service Date of service: 06/05/18 Time of Service: 13:33 Assessment and Plan (1) Acute pancreatitis: Current visit: Yes Status: Acute Diagnosis of acute pancreatitis in patient with a significant prior history of ETOH use. Imaging without evidence of gallstones, and TG's normal. Of note, patient's home thiazide was started following initial outpatient diagnosis of Pancreatitis. Given worsening pain, symptoms, and lipase a repeat CT was obtained, and compared to last imaging on 05/31 showed worsening areas of necrosis, now encompassing approximately 40% of the pancreas. Currently on IVFs. Downgraded diet to clear liquids and continued pain control and anti-emetics. No evidence of pseudocyst or abscess, and patient had remained afebrile, but with a one time episode of fever this morning. Given rapid worsening of imaging results also discussed case with GI at [facility] who agreed with continued supportive care at this time, without other intervention. Patient's fever may be based on inflammation with imaging yesterday showing lack of an abscess or pseudocyst, but the possibility exists of infected necrosis. Monitor temperature and vitals very carefully - currently does not clinically appear septic. Minimally elevated WBC has persisted and essentially unchanged. Will also check urinalysis and Blood Cultures, with CXR negative for any acute pathology. (2) Essential hypertension: Current visit: No Status: Acute Patient has severe hypertension despite attempts at control with HCTZ and BB as outpatient. Renin and aldosterone ordered and pending to rule out a hyperaldo state. No adrenal masses were noted by imaging, and recent TSH was normal. Continue BB, increase to max dose CCB, and increase dose of Spironolactone. Continue to monitor blood pressure, renal function, and electrolytes carefully. (3) Hypokalemia: Current visit: Yes Status: Acute This may be related to vomiting, but hyperaldosteronemia is also in the differential. Continue to replete aggressively and monitor closely. Now also on a potassium sparing agent with Spironolactone. (4) Excessive drinking alcohol: Current visit: Yes Status: Acute Reported significant prior daily alcohol intake, but now with last drink reported on May 17. Patient appears stable, but given significant HTN cannot entirely rule out withdrawl - will maintain on CIWA with standing Oxazepam and Gabapentin until withdrawl is definitively ruled out. (5) DVT prophylaxis: Current visit: Yes Status: Acute SC Lovenox. Subjective Interval history since last seen: 43-year-old man with a prior history of hypertension, admitted on 06/03 with a diagnosis of acute pancreatitis. Mr. Ryder had an 11 day history of nausea and vomiting associated with crampy postprandial abdominal pain that started after a meal at a friend's house. He also has an extensive history of alcohol use, but reports purposefully cutting back from 8+ beers nightly to 3, and with last alcohol intake on May 17 at a [employer]. He had not reported any diarrhea, blood in stool, or other bowel changes, but has had persistent symptoms of abdominal pain, nausea, and vomiting with subsequent decrease in oral intake and weight loss. The patient was seen by his primary care on the , then in the emergency room on the and , diagnosed with pancreatitis with a lipase over a thousand and CT scan showing evidence of pancreatitis with an approximate 15% area of necrosis. Attempt at outpatient management failed and Mr. Ryder was referred for admission. Despite supportive care the patient's symptoms continued, with significant vomiting and pain yesterday morning. Repeat Lipase remained elevated, and CT imaging of his abdomen was repeated showing worsening necrosis now involving 40 % of the pancreas. Patient's diet was modified back to clear fluids, and he was maintained on IVF's and pain control. This morning Mr. Ryder reports continued but improved pain and nausea, with no further vomiting. He also states a lack of bowel movement over the last 5-6 days. He is still significantly hypertensive , and had a one time episode of fever this morning. No other events reported. Exam Narrative Exam Narrative: General: Patient appears more comfortable this morning, AAOX3, NAD Neck: Supple CV: Regular, nontachycardic, S1S2, No rubs, murmurs, or gallops. Pulmonary: Clear to auscultation bilaterally, no crackles, wheezing, or rhonchi Abdomen: + Bowel Sounds, soft, minimal epigastric/LUQ tenderness, minimal distention Vascular: No lower extremity edema Psych: Normal mood and affect. Objective Objective Clinical Data: Abnormal lab results 06/05/18 06/05/18 Range/Units 06:15 06:15 WBC 11.13 H (4.4-10.8) k/cumm RBC 3.87 L (4.50-6.00) m/cumm Hgb 12.3 L (13.5-17.5) g/dL Hct 35.0 L (40.0-50.0) % RDW 11.3 L (11.8-14.1) % MPV 11.1 H (8.0-11.0) fL Absolute Neutrophils 7.90 H (1.2-6.7) k/cumm Absolute Monocytes 1.39 H (0.11-0.7) k/cumm Sodium 135 L (136-145) mmol/L Potassium 2.8 L* (3.5-5.1) mmol/L Chloride 97 L (98-107) mmol/L BUN 6 L (7-18) mg/dL Magnesium 1.7 L (1.8-2.4) mg/dL Lipase 1054 H (73-393) U/L Vital Signs Temperature 37.4 C 06/05/18 11:30 Temperature Source Tympanic 06/05/18 11:30 Pulse 82 06/05/18 11:30 Pulse Rhythm Regular 06/05/18 09:00 Respiratory Rate 18 06/05/18 11:30 Respiratory Effort Non-Labored 06/05/18 09:00 Respiratory Depth Normal 06/05/18 09:00 Respiratory Pattern Normal 06/05/18 09:00 Blood Pressure 164/109 H 06/05/18 11:30 Pulse Oximetry 97 06/05/18 11:30 Oxygen Delivery Method Room Air 06/05/18 11:30 Oxygen Flow Rate 0 06/05/18 11:30 Pain Level 0 06/05/18 10:15 Comment 06/05/18 11:09 Intake & Output 06/04/18 06/05/18 06/05/18 23:59 11:59 23:59 Intake Total 1580 / 1580 2427.5 / 2427.5 1000 / 1000 Output Total 400 / 400 3150 / 3150 Balance 1180 / 1180 -722.5 / -722.5 1000 / 1000 Weight 76.8 kg Intake: IV 1100 / 1100 1927.5 / 1927.5 1000 / 1000 Oral 480 / 480 500 / 500 Output: Urine 400 / 400 3150 / 3150 Other: Urine Color Yellow Yellow Urine Appearance Clear Clear Urine Odor Normal Voiding Methods Toilet Toilet Laboratory Results WBC 11.13 k/cumm (4.4-10.8) H 06/05/18 06:15 RBC 3.87 m/cumm (4.50-6.00) L 06/05/18 06:15 Hgb 12.3 g/dL (13.5-17.5) L 06/05/18 06:15 Hct 35.0 % (40.0-50.0) L 06/05/18 06:15 MCV 90.4 fL (80-95) 06/05/18 06:15 MCH 31.8 pg (27.0-33.0) 06/05/18 06:15 MCHC 35.1 g/dL (32.0-36.0) 06/05/18 06:15 RDW 11.3 % (11.8-14.1) L 06/05/18 06:15 Plt Count 163 x1000/uL (130-400) 06/05/18 06:15 MPV 11.1 fL (8.0-11.0) H 06/05/18 06:15 Immature Gran % 0.4 06/05/18 06:15 Neutrophils % 71.0 06/05/18 06:15 Lymphocytes % 12.8 06/05/18 06:15 Monocytes % 12.5 06/05/18 06:15 Eosinophils % 3.1 06/05/18 06:15 Basophils % 0.2 06/05/18 06:15 Absolute Neutrophils 7.90 k/cumm (1.2-6.7) H 06/05/18 06:15 Absolute Lymphocytes 1.42 k/cumm (1.2-3.4) 06/05/18 06:15 Absolute Monocytes 1.39 k/cumm (0.11-0.7) H 06/05/18 06:15 Absolute Eosinophils 0.35 k/cumm (0.0-0.7) 06/05/18 06:15 Absolute Basophils 0.02 k/cumm (0.0-0.2) 06/05/18 06:15 Sodium 135 mmol/L (136-145) L 06/05/18 06:15 Potassium 2.8 mmol/L (3.5-5.1) L* 06/05/18 06:15 Chloride 97 mmol/L (98-107) L 06/05/18 06:15 Carbon Dioxide 31.4 mmol/L (21.0-32.0) 06/05/18 06:15 Anion Gap 6.6 mmol/L (3-11) 06/05/18 06:15 BUN 6 mg/dL (7-18) L 06/05/18 06:15 Creatinine 0.73 mg/dL (0.70-1.30) 06/05/18 06:15 Estimated GFR/1.73 m2 >= 60.00 (mL/min/1.73m2) 06/05/18 06:15 Glucose 98 mg/dL (70-100) 06/05/18 06:15 Calcium 8.9 mg/dL (8.5-10.1) 06/05/18 06:15 Magnesium 1.7 mg/dL (1.8-2.4) L 06/05/18 06:15 Total Bilirubin 0.7 mg/dL (0.2-1.0) 06/04/18 06:33 AST 12 U/L (15-37) L 06/04/18 06:33 ALT 14 U/L (12-78) 06/04/18 06:33 Alkaline Phosphatase 93 U/L (46-116) 06/04/18 06:33 Total Protein 6.9 g/dL (6.4-8.2) 06/04/18 06:33 Albumin 2.8 g/dL (3.4-5.0) L 06/04/18 06:33 Triglycerides 94 mg/dL (30-150) 06/04/18 06:33 Total Cholesterol 164 mg/dL (50-200) 06/04/18 06:33 LDL Cholesterol Direct 127 mg/dL (<100) H 06/04/18 06:33 HDL Cholesterol 20 mg/dL (40-60) L 06/04/18 06:33 Lipase 1054 U/L (73-393) H 06/05/18 06:15 TSH 3.04 uIU/mL (0.358-3.74) 06/04/18 06:33 STUDIES: Exam(s) a RAD:XR chest 2V PA & lateral SYMPTOMS/DIAGNOSIS: FEVER PA AND LATERAL CHEST: The heart is normal in size. The lungs are clear. The mediastinal structures and pleura appear intact. CONCLUSION: Normal chest.
[2018-06-05] MEDS: Docusate Sodium 100 MG CAP PO ×2 (13:55→19:38)
[2018-06-05] MEDS: Enoxaparin 40 MG/0.4 ML SYR SC (13:55)
[2018-06-05] MEDS: Pantoprazole 40 MG VIAL IVP (15:39)
--- NOTE | 2018-06-05 15:41 | PDOC.CMPRO ---
- If Service Date Differs Date of service: 06/05/18 Time of Service: 15:42 Care Management Progress Note S/O:CM met with Jason at the bedside his parents are present. He states that his pain is well controlled. He is tolerating clear liquid diet. Jason has had a fever in the past 24 hours currently he is not on antibiotics. His cat scan per MD does show a narcotizing pancreatitis. He continues on the CIWA protocol and is receiving supportive care. A:Jason is a 43 year old male admitted with Pancreatitis and hypertension. P:Jason is receiving IV fluids, and pain management. His blood pressure is being treated with new medications and a CIWA was ordered. Jason is being monitored for fevers and blood pressure changes. Jason will be discharged when medically ready per provider he will have no anticipated services at time of discharge.
[2018-06-05 15:52] LABS: Bilirubin Negative (Negative); Blood Trace-intact (Negative); Clarity Clear; Glucose Negative (Negative); Ketones Negative (Negative); Leukocyte Esterase Negative (Negative); Nitrite Negative (Negative); Specific Gravity 1.015 (1.005-1.025); pH 7.5 (5-8)
[2018-06-05 15:59] LABS: WBC 0-2 HPF (0-5)
[2018-06-05 16:00] LABS: Bacteria Negative HPF (Negative); C & S Indicated? No; Casts Negative LPF (Negative); Crystals Negative HPF (Negative); Epithelial Cells Negative HPF (Negative); Mucus Negative (Negative); Other Cells Negative (Negative); RBC 0-2 (0-2)
[2018-06-05] MEDS: Senna TAB 2 TAB PO (19:38)
[2018-06-05] MEDS: Spironolactone 25 MG TAB 50 MG PO (19:38)
[2018-06-05] MEDS: HYDROmorphone 2 MG/ML VIAL 1 MG IVP (21:26)
[2018-06-06] VITALS (11 sets, daily range): BP systolic 157–205; BP diastolic 90–143; PULSE 80–95; RESP 16–18; TEMP 36.4–37.5; O2SAT 98–100
[2018-06-06] MEDS: Lactated Ringers 1,000 ML 150 ML IV (03:18)
[2018-06-06 07:18] LABS: Anion Gap 7.2 mmol/L (3-11); BUN 4 mg/dL (7-18); CO2 29.8 mmol/L (21.0-32.0); CREATININE 0.69 mg/dL (0.70-1.30); Chloride 95 mmol/L (98-107); Glucose 105 mg/dL (70-100); Lipase 838 U/L (73-393); Potassium 3.3 mmol/L (3.5-5.1); Sodium 132 mmol/L (136-145)
[2018-06-06 07:30] LABS: Abs Immature Grans 0.04 k/cumm (0.0-0.09); Absolute Basophil Count 0.04 k/cumm (0.0-0.2); Absolute Eosinophil Count 0.42 k/cumm (0.0-0.7); Absolute Lymphocyte Count 1.58 k/cumm (1.2-3.4); Absolute Monocyte Count 1.35 k/cumm (0.11-0.7); Absolute Neutrophil Count 8.29 k/cumm (1.2-6.7); Basophils % 0.3; Eosinophils % 3.6; HCT 37.8 % (40.0-50.0); HGB 12.9 g/dL (13.5-17.5); Immature Grans % 0.3; Lymphocytes % 13.5; Mean Corp. HGB Concentration 34.1 g/dL (32.0-36.0); Mean Corpuscular Hemoglobin 31.2 pg (27.0-33.0); Mean Corpuscular Volume 91.5 fL (80-95); Mean Platelet Volume 11.5 fL (8.0-11.0); Monocytes % 11.5; Neutrophils % 70.8; Platelet Count 190 x1000/uL (130-400); RBC 4.13 m/cumm (4.50-6.00); RBC Distribution Width 11.5 % (11.8-14.1); White Blood Cell Count 11.71 k/cumm (4.4-10.8)
[2018-06-06] MEDS: Spironolactone 25 MG TAB 50 MG PO ×2 (08:01→19:48)
[2018-06-06] MEDS: Thiamine 100 MG TAB PO (08:01)
[2018-06-06] MEDS: amLODIPine 5 MG TAB 10 MG PO (08:02)
[2018-06-06] MEDS: Multivitamin TAB 1 TAB PO (08:02)
[2018-06-06] MEDS: Metoprolol CR 50 MG TABCR 100 MG PO (08:02)
[2018-06-06] MEDS: Docusate Sodium 100 MG CAP PO ×3 (08:02→19:48)
[2018-06-06] MEDS: Potassium Chloride 20 MEQ TABCR 40 MEQ PO (08:49)
[2018-06-06] MEDS: Lisinopril 20 MG TAB PO (08:49)
[2018-06-06] MEDS: Polyethylene Glycol 3350 17 GM PACKET PO (08:58)
[2018-06-06] MEDS: Folic Acid 1 MG TAB PO (08:59)
[2018-06-06] MEDS: Lactated Ringers 1,000 ML 75 ML IV (10:14)
[2018-06-06] MEDS: Magnesium Citrate 300 ML BTL PO (10:49)
--- NOTE | 2018-06-06 11:22 | PDOC.CMPRO ---
- If Service Date Differs Date of service: 06/06/18 Time of Service: 11:22 Care Management Progress Note S/O: CM met with patient at the bedside he continues to receive supportive care for pancreatitis. He is tolerating a clear liquid diet, he has not had a BM since 05/28 and received mag citrate today. He continues to be on CIWA protocol and is receiving scheduled Serax he has not needed ativan at this point. His friends and family have been supportive. CM offered to direct his visitors if he feels he needs increase rest. Jason appears to be coping with illness although at times he appears withdrawn. CM to continue to provide support. A:Jason is a 43 year old male admitted with Pancreatitis and hypertension. P:Jason is receiving IV fluids, and pain management. His blood pressure is being treated with new medications and continued monitoring for alcohol withdrawal. Jason is being monitored for fevers and blood pressure changes. Jason will be discharged when medically ready per provider he will have no anticipated services at time of discharge.
[2018-06-06] MEDS: Labetalol 100 MG/20 ML VIAL 20 MG IVP (11:41)
[2018-06-06] MEDS: Normal Saline Flush 10 ML SYR IVP ×2 (11:42→15:24)
--- NOTE | 2018-06-06 12:58 | PGE_ITS ---
Date of Service Date of service: 06/06/18 Time of Service: 12:56 Assessment and Plan (1) Acute pancreatitis: Current visit: Yes Status: Acute Diagnosis of acute pancreatitis in patient with a significant prior history of ETOH use. Imaging without evidence of gallstones, and TG's normal. Of note, patient's home thiazide was started following initial outpatient diagnosis of Pancreatitis. Given worsening pain, symptoms, and lipase a repeat CT was obtained, and compared to last imaging on 05/31 showed worsening areas of necrosis, now encompassing approximately 40% of the pancreas. Patient has been improving steadily with a downgraded diet of clear liquids. No evidence of pseudocyst or abscess, and patient had remained afebrile, but with a one time episode of fever yesterday morning. Given rapid worsening of imaging results and development of fever again discussed case with GI at [facility] who agreed with holding antibiotics unless there is documented infection, and continued attempts at enteral feeding if at all possible over TPN. Will continue supportive care without other intervention, and if patient improves significantly plan on no further imaging or labs unless symptoms worsen, or if clinically the patient declines. Patient's fever may be based on inflammation with imaging preceding it showing lack of an abscess or pseudocyst, but the possibility exists of infected necrosis. Monitor temperature and vitals very carefully - currently does not clinically appear septic. Minimally elevated WBC has persisted and essentially unchanged. Urinalysis, Blood Cultures, and CXR negative for any acute pathology. (2) Essential hypertension: Current visit: No Status: Acute Patient has severe hypertension despite attempts at control with HCTZ and BB as outpatient. Renin and aldosterone ordered and pending to rule out a hyperaldo state. No adrenal masses were noted by imaging, and recent TSH was normal. Continue BB, increased to max dose CCB and Spironolactone. Current levels may reflect abdominal discomfort, but had been improving initially. Continue to monitor blood pressure, renal function, and electrolytes carefully. (3) Constipation: Current visit: Yes Status: Acute On TID Colace, QHS Senna, and daily mirlax without effect. Attempted Magnesium Citrate with development of significant abdominal cramping. Continue to monitor, and if still without bowel movement will alter regimen. (4) Hypokalemia: Current visit: Yes Status: Acute This may be related to vomiting, but hyperaldosteronemia is also in the differential. Continue to replete aggressively and monitor closely. Now also on a potassium sparing agent with Spironolactone. (5) Excessive drinking alcohol: Current visit: Yes Status: Acute Reported significant prior daily alcohol intake, but now with last drink reported on May 17. Patient appears stable, but given significant HTN cannot entirely rule out withdrawl - will maintain on CIWA with standing Oxazepam and Gabapentin until withdrawl is definitively ruled out. (6) DVT prophylaxis: Current visit: Yes Status: Acute SC Lovenox. Subjective Interval history since last seen: 43-year-old man with a prior history of hypertension, admitted on 06/03 with a diagnosis of acute pancreatitis. Mr. Ryder had an 11 day history of nausea and vomiting associated with crampy postprandial abdominal pain that started after a meal at a friend's house. He also has an extensive history of alcohol use, but reports purposefully cutting back from 8+ beers nightly to 3, and with last alcohol intake on May 17 at a [employer]. He had not reported any diarrhea, blood in stool, or other bowel changes, but has had persistent symptoms of abdominal pain, nausea, and vomiting with subsequent decrease in oral intake and weight loss. The patient was seen by his primary care on the , then in the emergency room on the and , diagnosed with pancreatitis with a lipase over a thousand and CT scan showing evidence of pancreatitis with an approximate 15% area of necrosis. Attempt at outpatient management failed and Mr. Ryder was referred for admission. Despite supportive care the patient's symptoms continued, with significant vomiting and pain previously, prompting repeat labwork and imaging. His Lipase remained elevated, and CT imaging of his abdomen showed worsening necrosis now involving 40% of the pancreas. Patient's diet was modified back to clear fluids , and he was maintained on IVF's and pain control with slowly improving symptoms , including vastly decreased pain and resolution of nausea and vomiting. He also states a lack of bowel movement over the last 5-6 days, without bowel movement despite addition of a bowel regimen. He received Mag Citrate this morning, and is now reporting significant cramping abdominal discomfort. Mr. Ryder remains significantly hypertensive - he had improved somewhat but now in the setting of abdominal cramping his blood pressure is again elevated. He also had a one time episode of fever yesterday morning, with a normal urinalysis , CXR, and Blood Cultures. He has remained afebrile since then, but with a Tmax of 37.9 overnight. No other events reported. Exam Narrative Exam Narrative: General: Patient appears uncomfortable this morning but not toxic, AAOX3 Neck: Supple CV: Regular, nontachycardic, S1S2, No rubs, murmurs, or gallops. Pulmonary: Clear to auscultation bilaterally, no crackles, wheezing, or rhonchi Abdomen: + Bowel Sounds, soft, minimal distention, diffuse abdominal discomfort with palpation but without rebound Vascular: No lower extremity edema Psych: Normal mood and affect. Objective Objective Clinical Data: Abnormal lab results 06/05/18 06/06/18 06/06/18 Range/Units 15:30 06:49 06:49 WBC 11.71 H (4.4-10.8) k/cumm RBC 4.13 L (4.50-6.00) m/cumm Hgb 12.9 L (13.5-17.5) g/dL Hct 37.8 L (40.0-50.0) % RDW 11.5 L (11.8-14.1) % MPV 11.5 H (8.0-11.0) fL Absolute Neutrophils 8.29 H (1.2-6.7) k/cumm Absolute Monocytes 1.35 H (0.11-0.7) k/cumm Sodium 132 L (136-145) mmol/L Potassium 3.3 L (3.5-5.1) mmol/L Chloride 95 L (98-107) mmol/L BUN 4 L (7-18) mg/dL Creatinine 0.69 L (0.70-1.30) mg/dL Glucose 105 H (70-100) mg/dL Lipase 838 H (73-393) U/L Urine Blood Trace-intact H (Negative) Urine Urobilinogen 2.0 H (Up TO 0.2) EU/dL Vital Signs Temperature 37.2 C 06/06/18 11:30 Temperature Source Tympanic 06/06/18 11:30 Pulse 95 H 06/06/18 11:41 Pulse Rhythm Regular 06/06/18 09:55 Respiratory Rate 18 06/06/18 11:30 Respiratory Effort Non-Labored 06/06/18 09:55 Respiratory Depth Normal 06/06/18 09:55 Respiratory Pattern Normal 06/06/18 09:55 Blood Pressure 205/143 H 06/06/18 11:41 Pulse Oximetry 100 06/06/18 11:30 Oxygen Delivery Method Room Air 06/06/18 11:30 Oxygen Flow Rate 0 06/06/18 11:30 Pain Level 7 06/06/18 11:30 Comment 06/05/18 19:14 Intake & Output 06/05/18 06/06/18 06/06/18 23:59 11:59 23:59 Intake Total 1900 / 1900 2300 / 2300 Output Total 1600 / 1600 Balance 300 / 300 2300 / 2300 Weight 76.35 kg Intake: IV 1900 / 1900 1999 / 1999 Oral 300 / 300 Output: Urine 1600 / 1600 Other: Urine Color Pale Yellow Urine Appearance Clear Clear Urine Odor None Comment Pt voids ind. Voiding Methods Toilet Toilet Urinal Laboratory Results WBC 11.71 k/cumm (4.4-10.8) H 06/06/18 06:49 RBC 4.13 m/cumm (4.50-6.00) L 06/06/18 06:49 Hgb 12.9 g/dL (13.5-17.5) L 06/06/18 06:49 Hct 37.8 % (40.0-50.0) L 06/06/18 06:49 MCV 91.5 fL (80-95) 06/06/18 06:49 MCH 31.2 pg (27.0-33.0) 06/06/18 06:49 MCHC 34.1 g/dL (32.0-36.0) 06/06/18 06:49 RDW 11.5 % (11.8-14.1) L 06/06/18 06:49 Plt Count 190 x1000/uL (130-400) 06/06/18 06:49 MPV 11.5 fL (8.0-11.0) H 06/06/18 06:49 Immature Gran % 0.3 06/06/18 06:49 Neutrophils % 70.8 06/06/18 06:49 Lymphocytes % 13.5 06/06/18 06:49 Monocytes % 11.5 06/06/18 06:49 Eosinophils % 3.6 06/06/18 06:49 Basophils % 0.3 06/06/18 06:49 Absolute Neutrophils 8.29 k/cumm (1.2-6.7) H 06/06/18 06:49 Absolute Lymphocytes 1.58 k/cumm (1.2-3.4) 06/06/18 06:49 Absolute Monocytes 1.35 k/cumm (0.11-0.7) H 06/06/18 06:49 Absolute Eosinophils 0.42 k/cumm (0.0-0.7) 06/06/18 06:49 Absolute Basophils 0.04 k/cumm (0.0-0.2) 06/06/18 06:49 Sodium 132 mmol/L (136-145) L 06/06/18 06:49 Potassium 3.3 mmol/L (3.5-5.1) L 06/06/18 06:49 Chloride 95 mmol/L (98-107) L 06/06/18 06:49 Carbon Dioxide 29.8 mmol/L (21.0-32.0) 06/06/18 06:49 Anion Gap 7.2 mmol/L (3-11) 06/06/18 06:49 BUN 4 mg/dL (7-18) L 06/06/18 06:49 Creatinine 0.69 mg/dL (0.70-1.30) L 06/06/18 06:49 Estimated GFR/1.73 m2 >= 60.00 (mL/min/1.73m2) 06/06/18 06:49 Glucose 105 mg/dL (70-100) H 06/06/18 06:49 Calcium 9.0 mg/dL (8.5-10.1) 06/06/18 06:49 Magnesium 1.7 mg/dL (1.8-2.4) L 06/05/18 06:15 Total Bilirubin 0.7 mg/dL (0.2-1.0) 06/04/18 06:33 AST 12 U/L (15-37) L 06/04/18 06:33 ALT 14 U/L (12-78) 06/04/18 06:33 Alkaline Phosphatase 93 U/L (46-116) 06/04/18 06:33 Total Protein 6.9 g/dL (6.4-8.2) 06/04/18 06:33 Albumin 2.8 g/dL (3.4-5.0) L 06/04/18 06:33 Triglycerides 94 mg/dL (30-150) 06/04/18 06:33 Total Cholesterol 164 mg/dL (50-200) 06/04/18 06:33 LDL Cholesterol Direct 127 mg/dL (<100) H 06/04/18 06:33 HDL Cholesterol 20 mg/dL (40-60) L 06/04/18 06:33 Lipase 838 U/L (73-393) H 06/06/18 06:49 TSH 3.04 uIU/mL (0.358-3.74) 06/04/18 06:33 Urine Color Yellow (Yellow) 06/05/18 15:30 Urine Clarity Clear 06/05/18 15:30 Urine pH 7.5 (5-8) 06/05/18 15:30 Ur Specific [place] 1.015 (1.005-1.025) 06/05/18 15:30 Urine Protein Negative mg/dL (Negative) 06/05/18 15:30 Urine Ketones Negative mg/dL (Negative) 06/05/18 15:30 Urine Blood Trace-intact (Negative) H 06/05/18 15:30 Urine Nitrite Negative (Negative) 06/05/18 15:30 Urine Bilirubin Negative (Negative) 06/05/18 15:30 Urine Urobilinogen 2.0 EU/dL (Up TO 0.2) H 06/05/18 15:30 Ur Leukocyte Esterase Negative (Negative) 06/05/18 15:30 Urine RBC 0-2 (0-2) 06/05/18 15:30 Urine WBC 0-2 HPF (0-5) 06/05/18 15:30 Ur Epithelial Cells Negative HPF (Negative) 06/05/18 15:30 Urine Crystals Negative HPF (Negative) 06/05/18 15:30 Urine Bacteria Negative HPF (Negative) 06/05/18 15:30 Urine Casts Negative LPF (Negative) 06/05/18 15:30 Urine Mucus Negative (Negative) 06/05/18 15:30 Urine Other Negative (Negative) 06/05/18 15:30 Ur Culture Indicated? No 06/05/18 15:30 Urine Glucose Negative mg/dL (Negative) 06/05/18 15:30
[2018-06-06] MEDS: Enoxaparin 40 MG/0.4 ML SYR SC (14:52)
[2018-06-06] MEDS: Pantoprazole 40 MG VIAL IVP (15:24)
[2018-06-06] MEDS: Methylnaltrexone 12 MG/0.6 ML VIAL 8 MG SC (17:37)
[2018-06-06] MEDS: Senna TAB 2 TAB PO (19:48)
[2018-06-07] VITALS (19 sets, daily range): BP systolic 160–205; BP diastolic 92–139; PULSE 80–89; RESP 16–18; TEMP 37.1–37.4; O2SAT 98–99
[2018-06-07] MEDS: Labetalol 100 MG/20 ML VIAL 20 MG IVP ×3 (03:37→21:02)
[2018-06-07 07:21] LABS: Abs Immature Grans 0.06 k/cumm (0.0-0.09); Absolute Basophil Count 0.04 k/cumm (0.0-0.2); Absolute Eosinophil Count 0.54 k/cumm (0.0-0.7); Absolute Lymphocyte Count 1.53 k/cumm (1.2-3.4); Absolute Monocyte Count 1.19 k/cumm (0.11-0.7); Absolute Neutrophil Count 8.67 k/cumm (1.2-6.7); Basophils % 0.3; Eosinophils % 4.5; HCT 39.2 % (40.0-50.0); HGB 13.3 g/dL (13.5-17.5); Immature Grans % 0.5; Lymphocytes % 12.7; Mean Corp. HGB Concentration 33.9 g/dL (32.0-36.0); Mean Corpuscular Hemoglobin 31.1 pg (27.0-33.0); Mean Corpuscular Volume 91.8 fL (80-95); Mean Platelet Volume 11.2 fL (8.0-11.0); Monocytes % 9.9; Neutrophils % 72.1; Platelet Count 238 x1000/uL (130-400); RBC 4.27 m/cumm (4.50-6.00); RBC Distribution Width 11.5 % (11.8-14.1); White Blood Cell Count 12.03 k/cumm (4.4-10.8)
[2018-06-07 07:34] LABS: Anion Gap 8.6 mmol/L (3-11); BUN 7 mg/dL (7-18); CO2 27.4 mmol/L (21.0-32.0); CREATININE 0.75 mg/dL (0.70-1.30); Calcium 9.3 mg/dL (8.5-10.1); Chloride 97 mmol/L (98-107); Glucose 103 mg/dL (70-100); Magnesium 1.6 mg/dL (1.8-2.4); Potassium 3.9 mmol/L (3.5-5.1); Sodium 133 mmol/L (136-145)
[2018-06-07] MEDS: Metoprolol CR 50 MG TABCR 100 MG PO (07:59)
[2018-06-07] MEDS: Spironolactone 25 MG TAB 50 MG PO ×2 (07:59→19:18)
[2018-06-07] MEDS: Normal Saline Flush 10 ML SYR IVP ×4 (08:00→21:01)
[2018-06-07] MEDS: Multivitamin TAB 1 TAB PO (08:00)
[2018-06-07] MEDS: Thiamine 100 MG TAB PO (08:00)
[2018-06-07] MEDS: amLODIPine 5 MG TAB 10 MG PO (08:00)
[2018-06-07] MEDS: Folic Acid 1 MG TAB PO (08:00)
[2018-06-07] MEDS: Docusate Sodium 100 MG CAP PO ×3 (08:00→19:18)
[2018-06-07] MEDS: Lisinopril 20 MG TAB PO (08:00)
[2018-06-07] MEDS: MAGNESIUM SULFATE 2 GM/50 ML BAG IVPB (10:10)
[2018-06-07] MEDS: Normal Saline 500 ML 25 ML IV (10:11)
--- NOTE | 2018-06-07 11:16 | PDOC.CMPRO ---
- If Service Date Differs Date of service: 06/07/18 Time of Service: 11:16 Care Management Progress Note S/O: Jason was lying in bed when CM visited this morning. He is engaged in conversation, makes good eye contact, and is talkative. Jason reports that he is frustrated to still be in the hospital and really wants to go home. He understands the need to be here however. Jason's magnesium is 1.6 and he is currently receiving IV mag. His potassium has rised to 3.9 and his lipase remains high but is lower at 838. Jason is afebrile at this time. His diet has been advanced to full liquids and he denies abdominal discomfort. Jason's parents have left to return to [place] and he expresses relief with this. A:Jason is a 43 year old male admitted with Pancreatitis and hypertension. P: Jason will discharge home when medically ready per MD. His blood pressure is being treated with new medications and continued monitoring for alcohol withdrawal. Jason is being monitored for fevers and blood pressure changes. Anticipate Jason will discharge home with no services and follow up with his PCP. CM will continue to offer support to patient and care team regarding discharge planning and disposition.
[2018-06-07 12:10] LABS: Renin Activity, Plasma 6.1 ng/mL/h
--- NOTE | 2018-06-07 12:33 | PGE_ITS ---
Date of Service Date of service: 06/07/18 Time of Service: 12:32 Assessment and Plan (1) Acute pancreatitis: Current visit: Yes Status: Acute Diagnosis of acute pancreatitis in patient with a significant prior history of ETOH use. Imaging without evidence of gallstones, and TG's normal. Of note, patient's home thiazide was started following initial outpatient diagnosis of Pancreatitis. Given worsening pain, symptoms, and lipase a repeat CT was obtained, and compared to last imaging on 05/31 showed worsening areas of necrosis, now encompassing approximately 40% of the pancreas. Patient has been improving steadily with a downgraded diet of clear liquids. No evidence of pseudocyst or abscess, and patient had remained afebrile, but with a one time episode of fever on 06/05. Given rapid worsening of imaging results and development of fever again discussed case with GI at [facility] who agreed with holding antibiotics unless there is documented infection, and continued attempts at enteral feeding if at all possible over TPN. Will continue supportive care without other intervention, and if patient improves significantly plan on no further imaging or labs unless symptoms worsen, or if clinically the patient declines. Patient's fever may have been based on inflammation with imaging immediately preceding it showing lack of an abscess or pseudocyst, but the possibility exists of infected necrosis. Monitor temperature and vitals very carefully - currently does not clinically appear septic. Minimally elevated WBC has persisted and essentially unchanged. Urinalysis, Blood Cultures, and CXR negative for any acute pathology. (2) Essential hypertension: Current visit: No Status: Acute Patient has severe hypertension despite attempts at control with HCTZ and BB as outpatient. Renin and aldosterone ordered and still pending to rule out a hyperaldo state. No adrenal masses were noted by imaging, and recent TSH was normal. Continue BB, increased to max dose CCB and Spironolactone. Added EDGAR-I yesterday , maximized today. Add TID Hydralazine as well. Continue to monitor blood pressure, renal function, and electrolytes carefully. (3) Constipation: Current visit: No Status: Acute On TID Colace, QHS Senna, and daily mirlax without effect. Attempted Magnesium Citrate with development of significant abdominal cramping. Relistor with good effect. Continue to monitor. Patient also with vastly decreased pain medication requirement. (4) Hypokalemia: Current visit: Yes Status: Acute This may be related to vomiting, but hyperaldosteronemia is also in the differential. Continue to replete aggressively and monitor closely. Now also on a potassium sparing agent with Spironolactone with K+ vastly improved. (5) Excessive drinking alcohol: Current visit: No Status: Acute Reported significant prior daily alcohol intake, but with purposeful decrease in intake with last drink reported on May 17. Patient appears stable and has shown no evidence of withdrawl. Discontinue CIWA protocol and monitor. (6) DVT prophylaxis: Current visit: Yes Status: Acute SC Lovenox. Subjective Interval history since last seen: 43-year-old man with a prior history of hypertension, admitted on 06/03 with a diagnosis of acute pancreatitis. Mr. Ryder had an 11 day history of nausea and vomiting associated with crampy postprandial abdominal pain that started after a meal at a friend's house. He also has an extensive history of alcohol use, but reports purposefully cutting back from 8+ beers nightly to 3, and with last alcohol intake on May 17 at a [employer]. He had not reported any diarrhea, blood in stool, or other bowel changes, but has had persistent symptoms of abdominal pain, nausea, and vomiting with subsequent decrease in oral intake and weight loss. The patient was seen by his primary care on the , then in the emergency room on the and , diagnosed with pancreatitis with a lipase over a thousand [address] CT scan showing evidence of pancreatitis with an approximate 15% area of necrosis. Attempt at outpatient management failed and Mr. Ryder was referred for admission. Despite supportive care the patient's symptoms continued, with significant vomiting and pain previously, prompting repeat labwork and imaging. His Lipase remained elevated, and CT imaging of his abdomen showed worsening necrosis now involving 40% of the pancreas. Patient's diet was modified back to clear fluids , and he was maintained on IVF's and pain control with slowly improving symptoms , including vastly decreased pain and resolution of nausea and vomiting. He also stated a lack of bowel movement over the prior 5-6 days, without bowel movement despite addition of a bowel regimen. He received Mag Citrate yesterday morning with significant cramping abdominal discomfort. One dose of Relistor was administered and patient reports a bowel movement this morning, reportedly moderate in quantity and loose. Mr. Ryder remains significantly hypertensive - Despite med management. He also had a one time episode of fever on 06/05, but has remained afebrile since, with a normal urinalysis, CXR, and Blood Cultures. No other events reported. Exam Narrative Exam Narrative: General: Patient appears more comfortable this morning, AAOX3 Neck: Supple CV: Regular, nontachycardic, S1S2, No rubs, murmurs, or gallops. Pulmonary: Clear to auscultation bilaterally, no crackles, wheezing, or rhonchi Abdomen: + Bowel Sounds, soft, nondistended, Very mild tenderness in the epigastric region Vascular: No lower extremity edema Psych: Normal mood and affect. Objective Objective Clinical Data: Abnormal lab results 06/07/18 06/07/18 Range/Units 06:30 06:30 WBC 12.03 H (4.4-10.8) k/cumm RBC 4.27 L (4.50-6.00) m/cumm Hgb 13.3 L (13.5-17.5) g/dL Hct 39.2 L (40.0-50.0) % RDW 11.5 L (11.8-14.1) % MPV 11.2 H (8.0-11.0) fL Absolute Neutrophils 8.67 H (1.2-6.7) k/cumm Absolute Monocytes 1.19 H (0.11-0.7) k/cumm Sodium 133 L (136-145) mmol/L Chloride 97 L (98-107) mmol/L Glucose 103 H (70-100) mg/dL Magnesium 1.6 L (1.8-2.4) mg/dL Vital Signs Temperature 37.2 C 06/07/18 07:25 Temperature Source Tympanic 06/07/18 07:25 Pulse 85 06/07/18 10:36 Pulse Rhythm Regular 06/07/18 11:00 Respiratory Rate 18 06/07/18 07:25 Respiratory Effort Non-Labored 06/07/18 11:00 Respiratory Depth Normal 06/07/18 11:00 Respiratory Pattern Normal 06/07/18 11:00 Blood Pressure 178/92 H 06/07/18 11:08 Pulse Oximetry 99 06/07/18 07:25 Oxygen Delivery Method Room Air 06/07/18 07:25 Oxygen Flow Rate 0 11/16/18 07:25 Pain Level 2 06/07/18 07:25 Comment 06/07/18 11:08 Intake & Output 06/06/18 06/07/18 06/07/18 23:59 11:59 23:59 Intake Total 1460 / 1460 220 / 220 Balance 1460 / 1460 220 / 220 Weight 78.2 kg Intake: IV 1100 / 1100 20 / 20 Oral 360 / 360 200 / 200 Other: Comment pt voiding independently in the toilet pt voiding independently in bathroom; urine not assessed at this time Stool Size Small Stool Characteristics Liquid Voiding Methods Toilet Toilet Laboratory Results WBC 12.03 k/cumm (4.4-10.8) H 06/07/18 06:30 RBC 4.27 m/cumm (4.50-6.00) L 06/07/18 06:30 Hgb 13.3 g/dL (13.5-17.5) L 06/07/18 06:30 Hct 39.2 % (40.0-50.0) L 06/07/18 06:30 MCV 91.8 fL (80-95) 06/07/18 06:30 MCH 31.1 pg (27.0-33.0) 06/07/18 06:30 MCHC 33.9 g/dL (32.0-36.0) 06/07/18 06:30 RDW 11.5 % (11.8-14.1) L 06/07/18 06:30 Plt Count 238 x1000/uL (130-400) 06/07/18 06:30 MPV 11.2 fL (8.0-11.0) H 06/07/18 06:30 Immature Gran % 0.5 06/07/18 06:30 Neutrophils % 72.1 06/07/18 06:30 Lymphocytes % 12.7 06/07/18 06:30 Monocytes % 9.9 06/07/18 06:30 Eosinophils % 4.5 06/07/18 06:30 Basophils % 0.3 06/07/18 06:30 Absolute Neutrophils 8.67 k/cumm (1.2-6.7) H 06/07/18 06:30 Absolute Lymphocytes 1.53 k/cumm (1.2-3.4) 06/07/18 06:30 Absolute Monocytes 1.19 k/cumm (0.11-0.7) H 06/07/18 06:30 Absolute Eosinophils 0.54 k/cumm (0.0-0.7) 06/07/18 06:30 Absolute Basophils 0.04 k/cumm (0.0-0.2) 06/07/18 06:30 Sodium 133 mmol/L (136-145) L 06/07/18 06:30 Potassium 3.9 mmol/L (3.5-5.1) 06/07/18 06:30 Chloride 97 mmol/L (98-107) L 06/07/18 06:30 Carbon Dioxide 27.4 mmol/L (21.0-32.0) 06/07/18 06:30 Anion Gap 8.6 mmol/L (3-11) 06/07/18 06:30 BUN 7 mg/dL (7-18) 06/07/18 06:30 Creatinine 0.75 mg/dL (0.70-1.30) 06/07/18 06:30 Estimated GFR/1.73 m2 >= 60.00 (mL/min/1.73m2) 06/07/18 06:30 Glucose 103 mg/dL (70-100) H 06/07/18 06:30 Calcium 9.3 mg/dL (8.5-10.1) 06/07/18 06:30 Magnesium 1.6 mg/dL (1.8-2.4) L 06/07/18 06:30 Total Bilirubin 0.7 mg/dL (0.2-1.0) 06/04/18 06:33 AST 12 U/L (15-37) L 06/04/18 06:33 ALT 14 U/L (12-78) 06/04/18 06:33 Alkaline Phosphatase 93 U/L (46-116) 06/04/18 06:33 Total Protein 6.9 g/dL (6.4-8.2) 06/04/18 06:33 Albumin 2.8 g/dL (3.4-5.0) L 06/04/18 06:33 Triglycerides 94 mg/dL (30-150) 06/04/18 06:33 Total Cholesterol 164 mg/dL (50-200) 06/04/18 06:33 LDL Cholesterol Direct 127 mg/dL (<100) H 06/04/18 06:33 HDL Cholesterol 20 mg/dL (40-60) L 06/04/18 06:33 Lipase 838 U/L (73-393) H 06/06/18 06:49 TSH 3.04 uIU/mL (0.358-3.74) 06/04/18 06:33 Urine Color Yellow (Yellow) 06/05/18 15:30 Urine Clarity Clear 06/05/18 15:30 Urine pH 7.5 (5-8) 06/05/18 15:30 Ur Specific [place] 1.015 (1.005-1.025) 06/05/18 15:30 Urine Protein Negative mg/dL (Negative) 06/05/18 15:30 Urine Ketones Negative mg/dL (Negative) 06/05/18 15:30 Urine Blood Trace-intact (Negative) H 06/05/18 15:30 Urine Nitrite Negative (Negative) 06/05/18 15:30 Urine Bilirubin Negative (Negative) 06/05/18 15:30 Urine Urobilinogen 2.0 EU/dL (Up TO 0.2) H 06/05/18 15:30 Ur Leukocyte Esterase Negative (Negative) 06/05/18 15:30 Urine RBC 0-2 (0-2) 06/05/18 15:30 Urine WBC 0-2 HPF (0-5) 06/05/18 15:30 Ur Epithelial Cells Negative HPF (Negative) 06/05/18 15:30 Urine Crystals Negative HPF (Negative) 06/05/18 15:30 Urine Bacteria Negative HPF (Negative) 06/05/18 15:30 Urine Casts Negative LPF (Negative) 06/05/18 15:30 Urine Mucus Negative (Negative) 06/05/18 15:30 Urine Other Negative (Negative) 06/05/18 15:30 Ur Culture Indicated? No 06/05/18 15:30 Urine Glucose Negative mg/dL (Negative) 06/05/18 15:30
[2018-06-07] MEDS: hydrALAZINE 10 MG TAB PO ×2 (14:55→19:18)
[2018-06-07] MEDS: Enoxaparin 40 MG/0.4 ML SYR SC (14:55)
--- NOTE | 2018-06-07 15:06 | SATEXT_ITS ---
Assessment: Mr. Ryder has been NPO since 06/04/18. He is admitted with pancreatitis. He is 69 and 78.2 kg. His BMI is 26.2 kg/m2 which is c/w mild overweight. He was likely well nourished prior to admission. Nutritional Diagnosis: Altered gastrointestinal status related to pancreatitis resulting in prolonged NPO status. Intervention: Would consider nutrition support if prolonged NPO status is anticipated to prevent malnutrition and loss of lean body mass. Monitoring and Evaluation: 1. Will monitor progress and advance of PO. 2. Will evaluate nutrition care plan ongoing and adjust as needed.
[2018-06-07] MEDS: Pantoprazole 40 MG VIAL IVP (17:25)
[2018-06-07] MEDS: Senna TAB 2 TAB PO (19:18)
[2018-06-08] VITALS (7 sets, daily range): BP systolic 153–189; BP diastolic 94–113; PULSE 79–93; RESP 16–18; TEMP 37.1–37.6; O2SAT 98–99
[2018-06-08] MEDS: Labetalol 100 MG/20 ML VIAL 20 MG IVP (00:42)
--- NOTE | 2018-06-08 06:13 | NUR.NOTE ---
Nursing Note: BP 153/116 HR 93. Pt declines Labetolol tx at this time, will wait for day shift am VS to reevaluate. He did share that he is worried about his 2 dogs that were home alone last night. He had a couple of friends looking in on them but no one was available yesterday. He has been asking about going home at 0330 and 0600, wanting to help prepare to DC so he can leave faster. If he does not DC today he would like to ask for an order to take and leave his IV out (he is still having very high blood pressures) and to leave the medsurg floor to go to cafeteria or walk around hospital.
[2018-06-08 07:19] LABS: Abs Immature Grans 0.06 k/cumm (0.0-0.09); Absolute Basophil Count 0.04 k/cumm (0.0-0.2); Absolute Eosinophil Count 0.52 k/cumm (0.0-0.7); Absolute Lymphocyte Count 1.57 k/cumm (1.2-3.4); Absolute Monocyte Count 1.53 k/cumm (0.11-0.7); Absolute Neutrophil Count 9.03 k/cumm (1.2-6.7); Basophils % 0.3; Eosinophils % 4.1; HGB 13.8 g/dL (13.5-17.5); Immature Grans % 0.5; Lymphocytes % 12.3; Mean Corp. HGB Concentration 34.5 g/dL (32.0-36.0); Mean Corpuscular Hemoglobin 31.5 pg (27.0-33.0); Mean Corpuscular Volume 91.3 fL (80-95); Mean Platelet Volume 11.4 fL (8.0-11.0); Neutrophils % 70.8; Platelet Count 257 x1000/uL (130-400); RBC 4.38 m/cumm (4.50-6.00); RBC Distribution Width 11.5 % (11.8-14.1); White Blood Cell Count 12.75 k/cumm (4.4-10.8)
[2018-06-08 07:30] LABS: Anion Gap 9.4 mmol/L (3-11); BUN 8 mg/dL (7-18); CO2 26.6 mmol/L (21.0-32.0); CREATININE 0.83 mg/dL (0.70-1.30); Calcium 9.5 mg/dL (8.5-10.1); Chloride 98 mmol/L (98-107); Glucose 117 mg/dL (70-100); Magnesium 2.1 mg/dL (1.8-2.4); Potassium 4.1 mmol/L (3.5-5.1); Sodium 134 mmol/L (136-145)
[2018-06-08 07:43] LABS: Diff Comment Diff Reviewed; RBC Morphology Normal
--- NOTE | 2018-06-08 08:00 | PDOC.CMPRO ---
Care Management Progress Note S/O: Jason began requesting discharge early this morning; he was verbalizing concerns around needing to return home and tend to his home and responsibilities. CM phoned Jason's support person to request assistance in encouraging Jason to stay the course with his hospitalization as he medical status requires close monitoring at this time. A: Jason is a 43 year old male admitted to [facility] 06/04/18 with Pancreatitis (found to be necrotic) and hypertension. P: Jason continues to be closely monitored regarding blood pressure with new medications, alcohol withdrawal, fevers and blood pressure changes. Anticipate Jason will discharge home with no services when ready per MD and follow up with his PCP. CM will continue to offer support to patient and care team regarding discharge planning and disposition.
--- NOTE | 2018-06-08 08:04 | CMPROGNOTE_ITS ---
Care Management Progress Note S/O: Jason began requesting discharge early this morning; he was verbalizing concerns around needing to return home and tend to his home and responsibilities. CM phoned Jason's support person to request assistance in encouraging Jason to stay the course with his hospitalization as he medical status requires close monitoring at this time. A: Jason is a 43 year old male admitted to [facility] 06/04/18 with Pancreatitis ( found to be necrotic) and hypertension. P: Jason continues to be closely monitored regarding blood pressure with new medications, alcohol withdrawal, fevers and blood pressure changes. Anticipate Jason will discharge home with no services when ready per MD and follow up with his PCP. CM will continue to offer support to patient and care team regarding discharge planning and disposition.
[2018-06-08] MEDS: hydrALAZINE 10 MG TAB PO ×2 (08:09→14:00)
[2018-06-08] MEDS: Folic Acid 1 MG TAB PO (08:10)
[2018-06-08] MEDS: amLODIPine 5 MG TAB 10 MG PO (08:10)
[2018-06-08] MEDS: Spironolactone 25 MG TAB 50 MG PO (08:10)
[2018-06-08] MEDS: Docusate Sodium 100 MG CAP PO (08:10)
[2018-06-08] MEDS: Metoprolol CR 50 MG TABCR 100 MG PO (08:10)
[2018-06-08] MEDS: Lisinopril 20 MG TAB 40 MG PO (08:10)
[2018-06-08] MEDS: Multivitamin TAB 1 TAB PO (08:10)
[2018-06-08] MEDS: Thiamine 100 MG TAB PO (08:10)
--- NOTE | 2018-06-08 09:48 | PDOC.CMPRO ---
- If Service Date Differs Date of service: 06/08/18 Time of Service: 09:48 Care Management Progress Note S/O: Jason was lying in bed when CM visits this morning. He is engaged in conversation and very frustrated that he has not been discharged. He is going stir crazy and feels like he could be lying in bed at home just as easily as he is in the hospital. Jason has been advised about the dangers of leaving the hospital AMA and insurance coverage questions regarding such. He has tolerated a GI soft diet and is having minimal abdominal pain. aJson's BPs remain a concern and a 1.9cm nodule was found on his adrenal gland. Jason has labs pending this morning, including a cortisol level, and is agreeable to wait to see the MD before leaving AMA. A: Jason is a 43 year old male admitted to [facility] 06/04/18 with Pancreatitis (found to be necrotic) and hypertension. P: Jason continues to be closely monitored regarding blood pressure with new medications, alcohol withdrawal, fevers and blood pressure changes. Anticipate Jason will discharge home with no services when ready per MD and follow up with his PCP. Patient will transport via private vehicle with a friend. CM will continue to offer support to patient and care team regarding discharge planning and disposition.
--- NOTE | 2018-06-08 10:20 | CMPROGNOTE_ITS ---
- If Service Date Differs Date of service: 06/08/18 Time of Service: 09:48 Care Management Progress Note S/O: Jason was lying in bed when CM visits this morning. He is engaged in conversation and very frustrated that he has not been discharged. He is going stir crazy and feels like he could be lying in bed at home just as easily as he is in the hospital. Jason has been advised about the dangers of leaving the hospital AMA and insurance coverage questions regarding such. He has tolerated a GI soft diet and is having minimal abdominal pain. Jason's BPs remain a concern and a 1.9cm nodule was found on his adrenal gland. Jason has labs pending this morning, including a cortisol level, and is agreeable to wait to see the MD before leaving AMA. A: Jason is a 43 year old male admitted to [facility] 06/04/18 with Pancreatitis ( found to be necrotic) and hypertension. P: Jason continues to be closely monitored regarding blood pressure with new medications, alcohol withdrawal, fevers and blood pressure changes. Anticipate Jason will discharge home with no services when ready per MD and follow up with his PCP. Patient will transport via private vehicle with a friend. CM will continue to offer support to patient and care team regarding discharge planning and disposition.
--- NOTE | 2018-06-08 11:43 | PDOC.CMDIS ---
- If Service Date Differs Date of service: 06/08/18 Time of Service: 11:43 LACE Index Scoring Tool - Questions: Length of Stay (in days): 4 - 6 Acuity (Admit via E.D.?): Yes E.D. Visits: 2 - Answers: Total Score: 9 Risk of Readmission: Low Risk Care Management Discharge Reason for Hospitalization: Pancreatitis and Dehydration. Discharge Plan: Jason will discharge home when medically ready per MD. Anticipate patient will discharge with no services and follow up with his PCP, GI, and have labs drawn. Jason will transport via private vehicle with a friend. Patient/Family Education Needs: Discharge education, any limitations, and follow up plan of care. Ask Me Three discussion.
--- NOTE | 2018-06-08 12:51 | W.PM.DS.N ---
DS: Diagnosis Discharge Diagnosis (1) Acute pancreatitis: Status: Acute (2) Constipation: Status: Acute (3) Hypokalemia: Status: Acute (4) Excessive drinking alcohol: Status: Chronic (5) Adrenal adenoma: Status: Chronic (6) Hypertension: Status: Chronic Discharge Plan Disposition Patient Disposition: HOME Condition: Improving Discharge Details Reason For Visit: ACUTE PANCREATITIS Admit Date/Time: 06/04/18 13:09 Admit Provider: Armando Navas Attending Provider: Armando Navas Primary Care Provider: Severo Potts Hospital Course Hospital Course: CC: Abdominal Pain, Nausea/Vomiting HPI: 43-year-old man with a prior history of hypertension, admitted on 06/03 with a diagnosis of acute pancreatitis. Mr. Ryder had an 11 day history of nausea and vomiting associated with crampy postprandial abdominal pain that started after a meal at a friend's house. He also has an extensive history of alcohol use, but reports purposefully cutting back from 8+ beers nightly to 3, and with last alcohol intake on May 17 at a [employer] green party. He had not reported any diarrhea, blood in stool, or other bowel changes, but had persistent symptoms of abdominal pain, nausea, and vomiting with subsequent decrease in oral intake and weight loss. The patient was seen by his primary care on the , then in the emergency room on the and , diagnosed with pancreatitis with a lipase over a thousand [address] CT scan showing evidence of pancreatitis with an approximate 15% area of necrosis. Attempt at outpatient management failed and Mr. Ryder was referred for admission. Despite supportive care the patient's symptoms continued, with significant vomiting and pain previously, prompting repeat labwork and imaging. His Lipase remained elevated, and CT imaging of his abdomen showed worsening necrosis now involving 40% of the pancreas. Patient's diet was modified back to clear fluids, and he was maintained on IVF's and pain control with slowly improving symptoms, including vastly decreased pain and resolution of nausea and vomiting. At this time he is tolerating a GI Soft diet without any significant recurrence of symptoms, and with only minimal discomfort that has not worsened in over 3 days. He also stated a lack of bowel movement over the prior 5-6 days despite addition of a bowel regimen, in setting of opiate pain control for pancreatitis. He was initially placed on senna/colace and Miralax without success, then received Mag Citrate with significant cramping abdominal discomfort. One dose of Relistor was administered with success. He is reportedly moving his bowels at time of discharge. Mr. Ryder remains significantly hypertensive - Despite med management. He was initially started on Metoprolol and HCTZ without much effect as an outpatient. Through medication management his blood pressure have improved but remain significantly elevated at time of dishcarge. Work-up for secondary hypertension is currently underway but not complete. He also had a one time episode of fever on 06/05, but has remained afebrile since, with a normal urinalysis, CXR, and Blood Cultures. No other events reported. Hospital Course: (1) Acute pancreatitis: Diagnosis of acute pancreatitis in patient with a significant prior history of ETOH use. Imaging without evidence of gallstones, and TG's normal. Of note, patient's home thiazide was started following initial outpatient diagnosis of Pancreatitis. Given worsening pain, symptoms, and lipase a repeat CT was obtained, and compared to last imaging on 05/31 showed worsening areas of necrosis, now encompassing approximately 40% of the pancreas (from a prior value of 15%). Patient has been improving steadily with a downgraded diet of clear liquids, which has been steadily advanced and patient is now tolerating a GI soft diet for over 24 hours without worsening symptoms. No evidence of pseudocyst or abscess, and patient had remained afebrile, but with a one time episode of fever on 06/05. Given rapid worsening of imaging results and development of fever again discussed case with GI at [facility] who agreed with holding antibiotics unless there is documented infection, and continued attempts at enteral feeding if at all possible over TPN. Also with recommendations for no further imaging or labs unless symptoms worsen, or if clinically the patient declines. Patient's fever may have been based on inflammation with imaging immediately preceding it showing lack of an abscess or pseudocyst, but the possibility of infected necrosis was considered. He has now remained afebrile for 48-72 hours. Minimally elevated WBC has persisted and essentially unchanged. Urinalysis, Blood Cultures, and CXR negative for any acute pathology. Patient was advised to refrain from alcohol use, and to continue and slowly increase his level of diet. Also discussed that given his pancreatic necrosis he may have recurrence of acute pancreatitis at any point, and if symptoms worsen with pain, n/v, or fevers he needs to return to the ED immediately. (2) Hypertension: Patient has severe hypertension that has been persistent and resistant to treatment, initally also with hypokalemia that persisted despite resolution of vomiting. Strongly suspect possible Secondary Hypertension. Presence of a left adrenal adenoma noted on CT. Need to rule out primary Hyperaldosteronism vs. Pheochromocytoma. Patient also with potential for [place]'s, although exam is not consistent with this diagnosis. May also have component of HERIBERTO, but highly doubt as soul etiology for this degree of blood pressure elevation. No evidence for coarctation of the aorta by CT angio. Renin and aldosterone ordered and still pending to rule out a hyperaldo state. Also with am cortisol and serum metanephrines still pending at this time. Recent TSH was normal. Continue BB, max dose CCB and max dose Spironolactone. Added EDGAR-I previously and maximized, and TID Hydralazine was added as well. Attempting to refrain from thiazide use given prior hypokalemia and current pancreatitis. K+ vastly improved.. Continue to monitor blood pressure carefully, and recheck renal function and electrolytes as outpatient, with PCP follow-up early this week. May require endocrinology follow-up as well pending above results. Discussed at length with patient that it would be ideal to have a diagnosis and treatment prior to discharge, but Mr. Ryder is insisting on d/c to home today. Prescriptions supplied. (3) Constipation: In setting of opiate use for pain control for pancreatitis - appears resolved with application of relistor. (4) Hypokalemia: Resolved slowly with addition of K+ Sparing agent and EDGAR-I. (5) Excessive drinking alcohol: \Reported significant prior daily alcohol intake, but with purposeful decrease in intake with last drink reported on May 17. Patient appears stable and has shown no evidence of withdrawl. (6) Disposition Discharge today per patient wishes, with close PCP follow-up early this coming week, recheck BMP in 3 days, and recommended follow-up with GI and potentially endocrinology. Home Meds and New Rx's Prescriptions: New hydralazine 10 mg Tablet 10 mg PO TID Qty: 90 RF: 0 lisinopril 20 mg Tablet 40 mg PO DAILY Qty: 30 RF: 0 spironolactone 50 mg tablet 50 mg PO BID Qty: 60 RF: 0 amlodipine 10 mg tablet 10 mg PO DAILY Qty: 30 RF: 0 Continue metoprolol succinate 50 mg tablet extended release 24 hr 50 mg PO BID Qty: 30 RF: 2 Discontinued potassium chloride 10 mEq capsule, extended release 10 meq PO BID Qty: 14 RF: 2 hydrochlorothiazide 25 mg tablet 25 mg PO DAILY Qty: 30 RF: 0 Discharge Instructions Instructions: Pancreatitis (DC), Pancreatitis (GEN) Stand Alone Forms: Nursing Discharge Form Referrals: Severo Potts DO [Primary Care Provider] - Activity:: No strenuous activity Equipment/Supplies:: No Equipment Needed Diet:: GI Soft, Full Liquids Discharge Orders Discharge Orders: Discharge Order (Routine); Ordered 06/08/18 Ordered By: Francesco Cedillo DS: Data Vitals/I&O Vitals and I&O: Vital Signs Temperature 37.1 C 06/08/18 11:39 Temperature Source Tympanic 06/08/18 11:39 Pulse 88 06/08/18 11:39 Pulse Rhythm Regular 06/08/18 01:14 Respiratory Rate 16 06/08/18 11:39 Respiratory Effort Non-Labored 06/08/18 01:14 Respiratory Depth Normal 06/08/18 01:14 Respiratory Pattern Normal 06/08/18 01:14 Blood Pressure 158/108 H 06/08/18 11:39 Pulse Oximetry 98 06/08/18 11:39 Oxygen Delivery Method Room Air 06/08/18 11:39 Oxygen Flow Rate 0 06/08/18 11:39 Pain Level 0 06/08/18 07:25 Comment 06/08/18 07:25 Intake & Output 06/07/18 06/08/18 06/08/18 23:59 11:59 23:59 Intake Total 412.5 / 412.5 Balance 412.5 / 412.5 Weight 77.4 kg Intake: IV 172.5 / 172.5 Oral 240 / 240 Other: Urine Appearance Clear Comment voiding independently in bathroom independent in room, reports no issues with voiding Blood Culture 06/08/18-1021 NO GROWTH 72 HOURS Completed studies during hospitalization [Text1]: CTA CHEST, ABDOMEN AND PELVIS: CT angiography was performed with multi slice acquisition and multi planar and 3D reconstruction. CHEST: The thoracic aorta is intact. No evidence of an aneurysm or dissection. Heart size is within normal limits. No significant pericardial effusion is seen. No mediastinal or hilar adenopathy is present. No evidence of a pulmonary embolus is seen. The lungs are clear. The tracheobronchial tree is unremarkable. No effusion or pneumothorax is identified. IMPRESSION: Negative CTA of the chest ABDOMEN AND PELVIS: The liver, spleen, gallbladder, bile ducts, kidneys, ureters and bladder are all unremarkable. The reproductive organs are unremarkable. There is a 1.9 cm. adrenal nodule, likely reflecting an adenoma. The right adrenal gland appears unremarkable. There is enlargement of the body of the pancreas with peripancreatic inflammatory changes. There is an area of decreased attenuation seen within the body of the pancreas. The findings likely reflect acute pancreatitis with an area of pancreatic necrosis. The area of necrosis accounts for less than 15% of the pancreas. No peripancreatic fluid collections are seen to suggest abscess or pseudocyst. The bowel shows no evidence of obstruction or inflammation. The abdominal aorta is of normal caliber. No evidence of aneurysm or dissection is seen. The celiac artery, mesenteric arteries and renal arteries are all unremarkable without evidence of dissection or stenosis or occlusion. The bones are intact. IMPRESSION: 1. No evidence of arterial injury. 2. Findings consistent with acute pancreatitis with an area of necrosis which occupies less than 15% of the pancreas. No evidence of abscess or pseudocyst. Exam(s) a CT:CT abdomen w SYMPTOM/DIAGNOSIS: PANCREATITIS WITH WORSENING SYMPTOMS CT ABDOMEN: CT scan of the abdomen was performed following the uneventful administration of intravenous contrast material. Comparison examination 05/31/18. The pancreas again shows fulness in the body with peripancreatic and inflammatory changes. There is an area of decreased attenuation in the body of the pancreas which has increased in size measuring 5.1 cm x 2.4 cm consistent with an area of pancreatic necrosis. There are also new areas of decreased attenuation seen near the tail of the pancreas. Overall, the area of pancreatic necrosis appears to occupy 30-40% of the pancreas. No focal peripancreatic fluid collections are seen to suggest abscess or pseudo cyst. The liver, gallbladder, bile ducts, and spleen are unremarkable. There is again seen a hypodense nodule in the left adrenal gland which may represent an adrenal adenoma. The kidneys show normal and symmetric enhancement. No evidence of a solid renal mass or obstruction. The abdominal aorta is of normal caliber. No significant abdominal or pelvic ascites or pneumoperitoneum is present. There are mildly enlarged lymph nodes seen around the pancreas likely reactive in nature. The splenic vein is attenuated near its junction with the superior mesenteric vein but no definite evidence of thrombosis is identified. The superior mesenteric and portal veins are patent. The bowel is grossly unremarkable apart from a small hiatal hernia. IMPRESSION: 1. 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 The area of necrosis now appears to occupy 30-40% of the pancreas. 2. Attenuation of the splenic vein but no evidence of splenic vein thrombosis. 3. No peripancreatic fluid collection seen to suggest pseudo cyst or abscess. Exam(s) a RAD:XR chest 2V PA & lateral SYMPTOMS/DIAGNOSIS: FEVER, ACUTE PANCREATITIS PA AND LATERAL CHEST: The heart is normal in size. The lungs are clear. The mediastinal structures and pleura appear intact. CONCLUSION: Normal chest. Exam(s) a US:US abdomen SYMPTOM/DIAGNOSIS: 44 YEAR OLD WITH PANCREATITIS ABDOMINAL ULTRASOUND: Comparison CT scan is 05/31/18. The study is limited due to overlying bowel gas. The mid and distal aorta were not visualized. The proximal aorta is of normal caliber. The inferior vena cava is unremarkable. The liver is normal in size. No hepatic mass is seen. The gallbladder is unremarkable. No stones or gallbladder wall thickening is seen. The common duct is within normal limits at 0.2 cm. The spleen and kidneys are unremarkable. There is a hypoechoic area seen in the body of the stomach. This appears to correspond to the area of necrosis seen on the CT scan from 05/31/18.The area measures roughly 2.2 cm. IMPRESSION: 1. Area of decreased attenuation seen in the body of the stomach likely reflecting an area of necrosis. It does not appear to be significantly changed in size compared to the CT scan from 05/31/18. 2. No evidence of cholelithiasis or biliary ductal dilatation. Labs on day of discharge: Labs from last 24 hours 06/08/18 06/08/18 06/08/18 06:15 06:15 06:15 WBC 12.75 H RBC 4.38 L Hgb 13.8 Hct 40.0 MCV 91.3 MCH 31.5 MCHC 34.5 RDW 11.5 L Plt Count 257 MPV 11.4 H Immature Gran % 0.5 Neutrophils % 70.8 Lymphocytes % 12.3 Monocytes % 12.0 Eosinophils % 4.1 Basophils % 0.3 Absolute Neutrophils 9.03 H Absolute Lymphocytes 1.57 Absolute Monocytes 1.53 H Absolute Eosinophils 0.52 Absolute Basophils 0.04 Differential Comment Diff reviewed RBC Morphology Normal Sodium 134 L Potassium 4.1 Chloride 98 Carbon Dioxide 26.6 Anion Gap 9.4 BUN 8 Creatinine 0.83 Estimated GFR/1.73 m2 >= 60.00 Glucose 117 H Calcium 9.5 Magnesium 2.1 Renin Activity Aldosterone Cortisol Baseline Pending Ur Creatinine Concen U Metanephrine/Creat U Normetanephrine/Creat U Tot Metanephri/Creat 06/07/18 06/04/18 16:37 06:33 WBC RBC Hgb Hct MCV MCH MCHC RDW Plt Count MPV Immature Gran % Neutrophils % Lymphocytes % Monocytes % Eosinophils % Basophils % Absolute Neutrophils Absolute Lymphocytes Absolute Monocytes Absolute Eosinophils Absolute Basophils Differential Comment RBC Morphology Sodium Potassium Chloride Carbon Dioxide Anion Gap BUN Creatinine Estimated GFR/1.73 m2 Glucose Calcium Magnesium Renin Activity 6.1 Aldosterone <4.0 Cortisol Baseline Ur Creatinine Concen Pending U Metanephrine/Creat Pending U Normetanephrine/Creat Pending U Tot Metanephri/Creat Pending Preliminary micro results at discharge 06/05/18 08:15 Blood Culture - Preliminary Blood NO GROWTH 72 HOURS 06/05/18 08:00 Blood Culture - Preliminary Blood NO GROWTH 72 HOURS PFSH Medical History Amput below elb, unilat (Acute) Social History Smoking/Tobacco Use Status: Current every day
[2018-06-09 18:10] LABS: Cortisol (Baseline) 21 ug/dl
== END 2018-06-08 14:07 | disposition home or self-care (01) | DRG 440 ==
PROVIDERS: Admitting Provider Family Medicine; PCP Emergency Medicine; Visit Provider Internal Medicine
DX: K85.90 Acute pancreatitis without necrosis or infection, unspecified (principal); K59.00 Constipation, unspecified; E87.6 Hypokalemia; F10.10 Alcohol abuse, uncomplicated; D35.00 Benign neoplasm of unspecified adrenal gland
CPT/HCPCS: 36410; 36415; 80048; 80053; 80061; 80400; 83690; 83721; 87040; 99222; 99232; 99233; 99239; J1650; 71046; 74160; 76700; 81003; 81015; 82088; 83735; 83835; 84244; 84443; 85025; G0378; J2405; J3475; J3480; J3490

== ENCOUNTER 2018-06-10 15:35 | Outpatient (CLI) | payer OTHER, SELFPAY ==
[2018-06-10 16:10] LABS: Absolute Basophil Count 0.06 k/cumm (0.0-0.2); Basophils % 0.4; Eosinophils % 3.1; HCT 40.1 % (40.0-50.0); HGB 13.4 g/dL (13.5-17.5); Immature Grans % 1.3; Mean Corp. HGB Concentration 33.4 g/dL (32.0-36.0); Mean Corpuscular Hemoglobin 30.9 pg (27.0-33.0); Mean Corpuscular Volume 92.4 fL (80-95); Mean Platelet Volume 10.5 fL (8.0-11.0); Monocytes % 8.1; Neutrophils % 73.1; Platelet Count 378 x1000/uL (130-400); RBC 4.34 m/cumm (4.50-6.00); RBC Distribution Width 11.7 % (11.8-14.1); White Blood Cell Count 15.72 k/cumm (4.4-10.8)
[2018-06-10 16:11] LABS: Absolute Eosinophil Count 0.49 k/cumm (0.0-0.7); Absolute Monocyte Count 1.27 k/cumm (0.11-0.7); Absolute Neutrophil Count 11.49 k/cumm (1.2-6.7)
[2018-06-10 17:57] LABS: ALT 56 U/L (12-78); AST 29 U/L (15-37); Albumin 3.4 g/dL (3.4-5.0); Alkaline Phosphatase 107 U/L (46-116); Anion Gap 11.8 mmol/L (3-11); BUN 20 mg/dL (7-18); Bilirubin, Total 0.2 mg/dL (0.2-1.0); CO2 26.2 mmol/L (21.0-32.0); CREATININE 1.83 mg/dL (0.70-1.30); Calcium 9.5 mg/dL (8.5-10.1); Chloride 96 mmol/L (98-107); Glucose 159 mg/dL (70-100); Lipase 999 U/L (73-393); Potassium 4.6 mmol/L (3.5-5.1); Sodium 134 mmol/L (136-145); Total Protein 7.2 g/dL (6.4-8.2)
== END 2018-06-10 15:55 ==
PROVIDERS: PCP Emergency Medicine; Visit Provider Internal Medicine
DX: K85.90 Acute pancreatitis without necrosis or infection, unspecified (principal); I10 Essential (primary) hypertension
CPT/HCPCS: 36415; 80053; 83690; 85025

== ENCOUNTER 2018-06-12 10:55 | Outpatient (CLI) | payer OTHER, SELFPAY ==
[2018-06-12 13:11] LABS: Abs Immature Grans 0.13 k/cumm (0.0-0.09); Absolute Basophil Count 0.04 k/cumm (0.0-0.2); Absolute Eosinophil Count 0.42 k/cumm (0.0-0.7); Basophils % 0.2; Eosinophils % 2.2; HCT 39.6 % (40.0-50.0); HGB 13.4 g/dL (13.5-17.5); Immature Grans % 0.7; Lymphocytes % 9.2; Mean Corp. HGB Concentration 33.8 g/dL (32.0-36.0); Mean Corpuscular Hemoglobin 31.5 pg (27.0-33.0); Mean Platelet Volume 11.2 fL (8.0-11.0); Monocytes % 9.4; Neutrophils % 78.3; Platelet Count 400 x1000/uL (130-400); RBC 4.26 m/cumm (4.50-6.00); RBC Distribution Width 11.8 % (11.8-14.1); White Blood Cell Count 19.12 k/cumm (4.4-10.8)
[2018-06-12 13:13] LABS: Absolute Lymphocyte Count 1.76 k/cumm (1.2-3.4); Absolute Neutrophil Count 14.97 k/cumm (1.2-6.7)
[2018-06-12 13:22] LABS: ALT 41 U/L (12-78); AST 18 U/L (15-37); Albumin 3.2 g/dL (3.4-5.0); Alkaline Phosphatase 105 U/L (46-116); BUN 16 mg/dL (7-18); Bilirubin, Total 0.3 mg/dL (0.2-1.0); C-Reactive Protein 9.76 mg/dL (0.0-0.3); CREATININE 1.05 mg/dL (0.70-1.30); Calcium 9.1 mg/dL (8.5-10.1); Chloride 96 mmol/L (98-107); Glucose 110 mg/dL (70-100); Lipase 1361 U/L (73-393); Potassium 4.8 mmol/L (3.5-5.1); Sodium 132 mmol/L (136-145); Total Protein 7.1 g/dL (6.4-8.2)
[2018-06-12 13:54] LABS: ESR 91 MM/HR (0-15)
== END 2018-06-12 11:15 ==
PROVIDERS: PCP Emergency Medicine; Visit Provider Internal Medicine
DX: I10 Essential (primary) hypertension (principal); F10.10 Alcohol abuse, uncomplicated; K85.90 Acute pancreatitis without necrosis or infection, unspecified
CPT/HCPCS: 36415; 80053; 83690; 85652; 85025; 86140

== ENCOUNTER 2018-06-12 14:26 | Outpatient (CLI) | payer OTHER, SELFPAY ==
--- NOTE | 2018-06-12 13:55 | DI.CT_ITS ---
SYMPTOMS/DIAGNOSIS: PANCREATITIS, K85.[address]: CT examination of the abdomen was performed prior to and following intravenous infusion of 100 cc's of Omnipaque 350 and ingestion of dilute barium. The examination is compared with most recent examination of 06/04/18. The patient has known pancreatitis. On today's examination the region of necrosis in the central portion of the pancreas appears larger than on the previous study. Marked peripancreatic increased fat attenuation is again noted grossly unchanged from the previous examination. No extrinsic fluid collection or abscess seen. The liver, spleen and bile ducts are unremarkable. The adrenals and kidneys appear normal. CONCLUSION: Findings consistent with increasing necrosis of the pancreas in a patient with known pancreatitis.
[2018-06-12] MEDS: Omnipaque 350 MG/ML 100 ML BTL IJ (15:08)
== END 2018-06-12 14:46 ==
PROVIDERS: PCP Emergency Medicine; Visit Provider Internal Medicine
DX: K85.90 Acute pancreatitis without necrosis or infection, unspecified (principal)
CPT/HCPCS: 74170; J3490

== ENCOUNTER 2018-06-12 16:05 | Inpatient (IN) | payer OTHER, SELFPAY ==
--- NOTE | 2018-06-12 16:12 | W.PM.HP.N ---
Date of service: 06/12/18 Time of Service: 16:13 Assessment and Plan (1) Acute pancreatitis: Current visit: No Status: Acute Recurrence of pancreatitis. Original episode felt secondary to alcohol intake, though we do not have a clear history of excessive intake precipitating the initial illness. No other clear precipitant. Repeat CT scan today again did not show evidence of gallbladder disease. CAT scan is concerning for the degree of necrosis, though current symptoms without fever are not consistent with infected necrosis. For now, will treat supportively with IV fluids and analgesics. I will make him n.p.o., and progress diet more slowly this time. He may need a more prolonged low-fat diet. We discussed seeing nutrition before he goes this time. Will monitor for complications. He did have a bump in his creatinine seen on labs from 2 days prior to admission, but this has normalized, which is reassuring. This was likely related to prerenal azotemia from vomiting due to the pancreatitis. (2) Hypertension: Current visit: No Status: Chronic Blood pressures are significantly better, but requiring for oral agents. Interestingly, his aldosterone and renin activity and a.m. cortisol were all normal. I do think it is worth getting screened for pheochromocytoma as part of the workup for secondary hypertension, especially given the adrenal adenoma seen on previous CT scan. I will order these 24-hour urines while he is here. (3) Excessive drinking alcohol: Current visit: No Status: Chronic Patient denies any ongoing use, though this may have been an initial trigger. I do not see evidence to point to a clear alcohol use disorder. (4) Constipation: Current visit: No Status: Acute No recent change. Exam is not currently consistent with an ileus. (5) Smoker: Current visit: Yes Status: Acute Now considering a quit attempt. He declines exam replacement while inpatient. We discussed other options for treatment. (6) Discharge planning issues: Current visit: No Status: Acute Stable on the medical floor. Full code. (7) DVT prophylaxis: Current visit: No Status: Acute Low molecular weight heparin. History of Present Illness Chief Complaint: Abdominal pain Narrative: 43-year-old man with history of hypertension and recent admission from 06/03/2018 to 06/08/18 with first episode of acute pancreatitis, who is presenting with worsening of abdominal pain and vomiting for the past 2 days. The patient's initial episode of pancreatitis began on May 232017. After multiple visits to primary care and emergency room, he was direct admitted with pancreatitis. Initially worsened with progression of necrotizing pancreatitis seen on CT scan. He did improve, however, over his 6-day admission and was tolerating regular diet at the time of discharge. He was feeling better until the evening of Sunday the . States his brother was in town over the weekend until Sunday, but he did not have so much as a drop of alcohol. He ate a regular diet including chicken Julio the night before the symptoms resumed. On the he had recurrence of the same epigastric pain. He describes it as dull and crampy across the epigastrium, slightly worse on the right upper quadrant area.. He states it comes and goes, triggered by food including a half of a turkey sandwich and a bowl of Cheerios with milk. He is able to eat sometimes without pain, however, in and come on without eating as well. He has vomited at least twice with clear fluid. Tends to have some coughing before vomiting, but not otherwise. He denies fevers. On June 10, he was sent for laboratory exams, which revealed worsening renal function and white blood cell count trending up. He went back to his primary care today, and Dr. Castorena decided with worsening symptoms and concerning lab findings he should have a repeat CAT scan and direct admission. Denies any new exposures including medications not listed on his list, alcohol or other drugs, supplements, trauma, new sexual partners, or travel. He has also been taking all 4 of his new blood pressure medications. Review of Systems Review of Systems No fevers or chills, though told by primary child care leader that he had slight fever today. He has been losing weight, not sure how much. Eating much less since he got sick. No headache, vision changes, focal numbness, or weakness. No sore throat or mouth sores. No shortness of breath. No chest pain or palpitations. No diarrhea or stool changes. No blood in the stool or melena. No hematuria or dysuria. No rashes, large bruising, or other skin lesions. Meds Home Medications Medication Instructions Recorded Confirmed Type metoprolol succinate ER 50 mg 50 mg PO BID #30 tab 06/01/18 06/10/18 Rx tablet,extended release 24 hr amlodipine 10 mg PO DAILY #30 tab 06/08/18 06/10/18 Rx lisinopril 40 mg PO DAILY #30 tab 06/08/18 06/10/18 Rx spironolactone 50 mg PO BID #60 tab 06/08/18 06/10/18 Rx Allergies Allergy/AdvReac Type Severity Reaction Status Date / Time No Known Allergies Allergy Verified 06/12/18 11:52 Exam Narrative Exam Narrative: General: Alert and oriented, sitting comfortably in bed in no acute distress. HEENT: Atraumatic. Pupils equal round reactive to light, extraocular motion intact, conjunctive are clear, no icterus. Mucous membranes moist with oropharynx benign. Neck is supple with no lymphadenopathy or thyromegaly or other masses. Lungs: Clear to auscultation bilaterally with normal effort. Cardiovascular: Regular rate and rhythm with no murmurs gallops or rubs. Abdomen: Active bowel sounds. Moderate epigastric tenderness across abdomen, slightly more on right, negative Terry's. No masses or again a megaly palpable. No rebound. Extremities: No cyanosis, clubbing, or edema. Neurologic: Cranial nerves grossly intact. Normal speech, coordination, movement in 4 extremities. No tremor. Skin: No rashes or other skin lesions Psychiatric: Normal mood and affect Results Imaging Abdomen CT scan report/results: report reviewed Imaging Studies: ABDOMINAL CT: CT examination of the abdomen was performed prior to and following intravenous infusion of 100 cc's of Omnipaque 350 and ingestion of dilute barium. The examination is compared with most recent examination of 06/04/18. The patient has known pancreatitis. On today's examination the region of necrosis in the central portion of the pancreas appears larger than on the previous study. Marked peripancreatic increased fat attenuation is again noted grossly unchanged from the previous examination. No extrinsic fluid collection or abscess seen. The liver, spleen and bile ducts are unremarkable. The adrenals and kidneys appear normal. CONCLUSION: Findings consistent with increasing necrosis of the pancreas in a patient with known pancreatitis. Labs Calcium 9.1 8.5-10.1 mg/dL 06/12/18-1322 Glucose 110 H 70-100 mg/dL 06/12/18-1322 BUN 16 7-18 mg/dL 06/12/18-1322 Creatinine 1.05 # 0.70-1.30 mg/dL 06/12/18-1322 Estimated GFR >= 60.00 mL/min/1.73m2 06/12/18 Reference Range: >= 60.00 mL/min/1.73m2 If patient is , multiply results by 1.212 Total Protein 7.1 6.4-8.2 g/dL 06/12/18 Albumin 3.2 L 3.4-5.0 g/dL 06/12/18 Bilirubin, Total 0.3 0.2-1.0 mg/dL 06/12/18 Alk Phos 105 46-116 U/L 06/12/18 Sodium 132 L 136-145 mmol/L 06/12/18 Potassium 4.8 3.5-5.1 mmol/L 06/12/18 Chloride 96 L 98-107 mmol/L 06/12/18 CO2 27.0 21.0-32.0 mmol/L 06/12/18 Anion Gap 9.0 3-11 mmol/L 06/12/18 AST 18 15-37 U/L 06/12/18 ALT 41 12-78 U/L 06/12/18 C-Reactive Protein 9.76 H 0.0-0.3 mg/dL 06/12/18 Lipase 1361 H 73-393 U/L 06/12/18 Complete Blood Count w/Diff WBC 19.12 H 4.4-10.8 k/cumm 06/12/18 RBC 4.26 L 4.50-6.00 m/cumm 06/12/18 HGB 13.4 L 13.5-17.5 g/dL 06/12/18 HCT 39.6 L 40.0-50.0 % 06/12/18 MCV 93.0 80-95 fL 06/12/18 MCH 31.5 27.0-33.0 pg 06/12/18 MCHC 33.8 32.0-36.0 g/dL 06/12/18 RDW 11.8 11.8-14.1 % 06/12/18 Platelet Count 400 130-400 x1000/uL 06/12/18 MPV 11.2 H 8.0-11.0 fL 06/12/18 Neutrophils % 78.3 06/12/18 Lymphocytes % 9.2 06/12/18 Monocytes % 9.4 06/12/18 Eosinophils % 2.2 06/12/18 Basophils % 0.2 06/12/18 Immature Grans % 0.7 06/12/18 Abs Neutrophils 14.97 H 1.2-6.7 k/cumm 06/12/18 Abs Lymphocytes 1.76 1.2-3.4 k/cumm 06/12/18 Abs Monocytes 1.80 H 0.11-0.7 k/cumm 06/12/18 Abs Eosinophils 0.42 0.0-0.7 k/cumm 06/12/18 Abs Basophils 0.04 0.0-0.2 k/cumm 06/12/18 ESR 91 H 0-15 MM/HR 06/12/18
--- NOTE | 2018-06-12 16:36 | HPE_ITS ---
Date of service: 06/12/18 Time of Service: 16:13 Assessment and Plan (1) Acute pancreatitis: Current visit: No Status: Acute Recurrence of pancreatitis. Original episode felt secondary to alcohol intake, though we do not have a clear history of excessive intake precipitating the initial illness. No other clear precipitant. Repeat CT scan today again did not show evidence of gallbladder disease. CAT scan is concerning for the degree of necrosis, though current symptoms without fever are not consistent with infected necrosis. For now, will treat supportively with IV fluids and analgesics. I will make him n.p.o., and progress diet more slowly this time. He may need a more prolonged low-fat diet. We discussed seeing nutrition before he goes this time. Will monitor for complications. He did have a bump in his creatinine seen on labs from 2 days prior to admission, but this has normalized, which is reassuring. This was likely related to prerenal azotemia from vomiting due to the pancreatitis. (2) Hypertension: Current visit: No Status: Chronic Blood pressures are significantly better, but requiring for oral agents. Interestingly, his aldosterone and renin activity and a.m. cortisol were all normal. I do think it is worth getting screened for pheochromocytoma as part of the workup for secondary hypertension, especially given the adrenal adenoma seen on previous CT scan. I will order these 24-hour urines while he is here. (3) Excessive drinking alcohol: Current visit: No Status: Chronic Patient denies any ongoing use, though this may have been an initial trigger. I do not see evidence to point to a clear alcohol use disorder. (4) Constipation: Current visit: No Status: Acute No recent change. Exam is not currently consistent with an ileus. (5) Smoker: Current visit: Yes Status: Acute Now considering a quit attempt. He declines exam replacement while inpatient. We discussed other options for treatment. (6) Discharge planning issues: Current visit: No Status: Acute Stable on the medical floor. Full code. (7) DVT prophylaxis: Current visit: No Status: Acute Low molecular weight heparin. History of Present Illness Chief Complaint: Abdominal pain Narrative: 43-year-old man with history of hypertension and recent admission from 06/03/2018 to 06/08/18 with first episode of acute pancreatitis, who is presenting with worsening of abdominal pain and vomiting for the past 2 days. The patient's initial episode of pancreatitis began on May 232017. After multiple visits to primary care and emergency room, he was direct admitted with pancreatitis. Initially worsened with progression of necrotizing pancreatitis seen on CT scan. He did improve, however, over his 6-day admission and was tolerating regular diet at the time of discharge. He was feeling better until the evening of Sunday the . States his brother was in town over the weekend until Sunday, but he did not have so much as a drop of alcohol. He ate a regular diet including chicken Julio the night before the symptoms resumed. On the he had recurrence of the same epigastric pain. He describes it as dull and crampy across the epigastrium, slightly worse on the right upper quadrant area.. He states it comes and goes, triggered by food including a half of a turkey sandwich and a bowl of Cheerios with milk. He is able to eat sometimes without pain, however, in and come on without eating as well. He has vomited at least twice with clear fluid. Tends to have some coughing before vomiting, but not otherwise. He denies fevers. On June 10, he was sent for laboratory exams, which revealed worsening renal function and white blood cell count trending up. He went back to his primary care today, and Dr. Castorena decided with worsening symptoms and concerning lab findings he should have a repeat CAT scan and direct admission. Denies any new exposures including medications not listed on his list, alcohol or other drugs, supplements, trauma, new sexual partners, or travel. He has also been taking all 4 of his new blood pressure medications. Review of Systems Review of Systems No fevers or chills, though told by primary client care manager that he had slight fever today. He has been losing weight, not sure how much. Eating much less since he got sick. No headache, vision changes, focal numbness, or weakness. No sore throat or mouth sores. No shortness of breath. No chest pain or palpitations. No diarrhea or stool changes. No blood in the stool or melena. No hematuria or dysuria. No rashes, large bruising, or other skin lesions. Meds Home Medications Medication Instructions Recorded Confirmed Type metoprolol succinate ER 50 mg 50 mg PO BID #30 tab 06/01/18 06/10/18 Rx tablet,extended release 24 hr amlodipine 10 mg PO DAILY #30 tab 06/08/18 06/10/18 Rx lisinopril 40 mg PO DAILY #30 tab 06/08/18 06/10/18 Rx spironolactone 50 mg PO BID #60 tab 06/08/18 06/10/18 Rx Allergies Allergy/AdvReac Type Severity Reaction Status Date / Time No Known Allergies Allergy Verified 06/12/18 11:52 Exam Narrative Exam Narrative: General: Alert and oriented, sitting comfortably in bed in no acute distress. HEENT: Atraumatic. Pupils equal round reactive to light, extraocular motion intact, conjunctive are clear, no icterus. Mucous membranes moist with oropharynx benign. Neck is supple with no lymphadenopathy or thyromegaly or other masses. Lungs: Clear to auscultation bilaterally with normal effort. Cardiovascular: Regular rate and rhythm with no murmurs gallops or rubs. Abdomen: Active bowel sounds. Moderate epigastric tenderness across abdomen, slightly more on right, negative Terry's. No masses or again a megaly palpable. No rebound. Extremities: No cyanosis, clubbing, or edema. Neurologic: Cranial nerves grossly intact. Normal speech, coordination, movement in 4 extremities. No tremor. Skin: No rashes or other skin lesions Psychiatric: Normal mood and affect Results Imaging Abdomen CT scan report/results: report reviewed Imaging Studies: ABDOMINAL CT: CT examination of the abdomen was performed prior to and following intravenous infusion of 100 cc's of Omnipaque 350 and ingestion of dilute barium. The examination is compared with most recent examination of 06/04/18. The patient has known pancreatitis. On today's examination the region of necrosis in the central portion of the pancreas appears larger than on the previous study. Marked peripancreatic increased fat attenuation is again noted grossly unchanged from the previous examination. No extrinsic fluid collection or abscess seen. The liver, spleen and bile ducts are unremarkable. The adrenals and kidneys appear normal. CONCLUSION: Findings consistent with increasing necrosis of the pancreas in a patient with known pancreatitis. Labs Calcium 9.1 8.5-10.1 mg/dL -1322 Glucose 110 H 70-100 mg/dL -1322 BUN 16 7-18 mg/dL -1322 Creatinine 1.05 # 0.70-1.30 mg/dL -1322 Estimated GFR >= 60.00 mL/min/1.73m2 Reference Range: >= 60.00 mL/min/1.73m2 If patient is , multiply results by 1.212 Total Protein 7.1 6.4-8.2 g/dL Albumin 3.2 L 3.4-5.0 g/dL Bilirubin, Total 0.3 0.2-1.0 mg/dL Alk Phos 105 46-116 U/L Sodium 132 L 136-145 mmol/L Potassium 4.8 3.5-5.1 mmol/L Chloride 96 L 98-107 mmol/L CO2 27.0 21.0-32.0 mmol/L Anion Gap 9.0 3-11 mmol/L AST 18 15-37 U/L ALT 41 12-78 U/L C-Reactive Protein 9.76 H 0.0-0.3 mg/dL Lipase 1361 H 73-393 U/L Complete Blood Count w/Diff WBC 19.12 H 4.4-10.8 k/cumm RBC 4.26 L 4.50-6.00 m/cumm HGB 13.4 L 13.5-17.5 g/dL HCT 39.6 L 40.0-50.0 % MCV 93.0 80-95 fL MCH 31.5 27.0-33.0 pg MCHC 33.8 32.0-36.0 g/dL RDW 11.8 11.8-14.1 % Platelet Count 400 130-400 x1000/uL MPV 11.2 H 8.0-11.0 fL Neutrophils % 78.3 Lymphocytes % 9.2 Monocytes % 9.4 Eosinophils % 2.2 Basophils % 0.2 Immature Grans % 0.7 Abs Neutrophils 14.97 H 1.2-6.7 k/cumm Abs Lymphocytes 1.76 1.2-3.4 k/cumm Abs Monocytes 1.80 H 0.11-0.7 k/cumm Abs Eosinophils 0.42 0.0-0.7 k/cumm Abs Basophils 0.04 0.0-0.2 k/cumm ESR 91 H 0-15 MM/HR
[2018-06-12 16:59] VITALS: BP 174/113; PULSE 91; RESP 19; TEMP 36.6; O2SAT 100
[2018-06-12] MEDS: Lactated Ringers 1,000 ML 150 ML IV ×2 (17:02→23:53)
[2018-06-12] MEDS: Normal Saline Flush 10 ML SYR (17:03)
[2018-06-12] MEDS: Spironolactone 50 MG TAB PO (19:10)
[2018-06-12] MEDS: Metoprolol CR 50 MG TABCR PO (19:10)
[2018-06-12] MEDS: Enoxaparin 40 MG/0.4 ML SYR SC (19:11)
[2018-06-12 19:13] VITALS: BP 163/110; PULSE 88; RESP 18; TEMP 37.5; O2SAT 99
[2018-06-12 20:12] VITALS: BP 163/110; PULSE 88; RESP 18; TEMP 37.5; O2SAT 99
[2018-06-13 00:14] VITALS: BP 159/102; PULSE 57; RESP 18; TEMP 37.3; O2SAT 99
[2018-06-13] MEDS: Lactated Ringers 1,000 ML 150 ML IV ×3 (06:17→21:57)
[2018-06-13 07:20] LABS: Abs Immature Grans 0.08 k/cumm (0.0-0.09); Absolute Basophil Count 0.05 k/cumm (0.0-0.2); Absolute Lymphocyte Count 1.89 k/cumm (1.2-3.4); Absolute Monocyte Count 1.49 k/cumm (0.11-0.7); Basophils % 0.4; Eosinophils % 4.5; HCT 38.5 % (40.0-50.0); Immature Grans % 0.6; Lymphocytes % 13.9; Mean Corp. HGB Concentration 33.8 g/dL (32.0-36.0); Mean Corpuscular Hemoglobin 31.1 pg (27.0-33.0); Mean Corpuscular Volume 92.1 fL (80-95); Mean Platelet Volume 10.5 fL (8.0-11.0); Monocytes % 10.9; Neutrophils % 69.7; Platelet Count 358 x1000/uL (130-400); RBC 4.18 m/cumm (4.50-6.00); RBC Distribution Width 11.7 % (11.8-14.1); White Blood Cell Count 13.63 k/cumm (4.4-10.8)
[2018-06-13 07:31] LABS: Absolute Eosinophil Count 0.61 k/cumm (0.0-0.7)
[2018-06-13 07:39] LABS: ALT 31 U/L (12-78); AST 16 U/L (15-37); Albumin 2.8 g/dL (3.4-5.0); Alkaline Phosphatase 97 U/L (46-116); Anion Gap 8.8 mmol/L (3-11); BUN 9 mg/dL (7-18); Bilirubin, Total 0.4 mg/dL (0.2-1.0); CO2 27.2 mmol/L (21.0-32.0); CREATININE 0.87 mg/dL (0.70-1.30); Calcium 9.4 mg/dL (8.5-10.1); Chloride 98 mmol/L (98-107); Glucose 94 mg/dL (70-100); Potassium 4.7 mmol/L (3.5-5.1); Sodium 134 mmol/L (136-145); Total Protein 7.4 g/dL (6.4-8.2)
[2018-06-13] MEDS: Lisinopril 20 MG TAB 40 MG PO (08:41)
[2018-06-13] MEDS: Spironolactone 50 MG TAB PO ×2 (08:41→20:11)
[2018-06-13] MEDS: Metoprolol CR 50 MG TABCR PO (08:41)
[2018-06-13] MEDS: amLODIPine 10 MG TAB PO (08:42)
[2018-06-13 08:44] VITALS: BP 162/106; PULSE 80; RESP 16; TEMP 36.9; O2SAT 99
[2018-06-13 09:10] VITALS: O2SAT 99
--- NOTE | 2018-06-13 09:10 | PDOC.CMIN ---
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 PREVIOUS FUNCTIONAL STATUS/SOCIAL/FAMILY SUPPORTS:: Jason lives alone with his two dogs in [place], [place]. 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 He is independent at baseline. CURRENT FUNCTIONAL STATUS:: Jason is lying on his side, he is forthcoming with information and pleasant in interaction. He reports being most interested in having his diet advanced and working toward discharge. CM agrees to keep Jason updated with developments. ADVANCE DIRECTIVES:: None on file at [facility]. Has patient been provided with information about the portal?: Yes Did the patient sign up for the portal?: No CODE STATUS:: Full Code INSURANCE COVERAGE / FINANCIAL ISSUES:: [employer] CURRENT HOME/COMMUNITY SERVICES/EQUIPMENT:: No current services. PRIMARY CARE PHYSICIAN:: Severo Potts, POTENTIAL DISCHARGE NEEDS:: Follow up appointment with PCP, [facility] PATIENT/FAMILY EDUCATION NEEDS:: Discharge instructions, discuss Ask Me Three. ANTICIPATED BARRIERS TO DISCHARGE:: None identified. TRANSPORTATION:: Via private vehicle with friend or family. PLAN:: Jason will continue to be closely monitored; CM will continue to follow and support discharge planning considerations. Jason will likely return home with no additional services and follow up with his PCP and plan of care as prescribed. He will transport via private vehicle. Readmission - Within the Past 30 Days Yes or No: Y - Date of First Admission Date of 1st Admission: 06/04/18 - Date of this Admission Date of Admission: 06/12/18 This admission was: Direct Admit - Office Visit Since 1st Admission Have you seen your PCP in the office since discharge?: Yes Date of PCP Appointment: 06/10/18 Had an appointment Been Scheduled?: Yes Date of Scheduled Appointment: 06/10/18 - Speicalist Appointments Specialist Seen: Confusion around F/U need at [facility]: Jason reports he did not make an appointment. - I. Interview patient and/or Family Difficulty reaching your doctor or getting an office appt?: No Have you had trouble purchasing/ or taking medication?: No How do you take your medications and set up your pills?: Reports taking all prescribed medications timely. Have you had trouble with getting meals at home?: No Describe your typical meals since you have been home: Full diet tolerated: until it wasn't vomited for two days Did you feel ready for discharge when you left the last time: Yes Did you call your physician beore you came to the ED?: Yes Did your physician tell you to come in?: Yes - ED visits How many ED visits in the past 12 months: 2 (also 2 admits) - Assessment for Readmission Summary of readmission circumstances, based upon interviews: GI F/U appointment at [facility] was not scheduled by patient who discharged over the weekend. He did follow up with his primary and reports taking medications. Statement from admitting MD: 43-year-old man with history of hypertension and recent admission from 06/03/2018 to 06/08/18 with first episode of acute pancreatitis, who is presenting with worsening of abdominal pain and vomiting for the past 2 days. The patient's initial episode of pancreatitis began on May 232017. After multiple visits to primary care and emergency room, he was direct admitted with pancreatitis. Initially worsened with progression of necrotizing pancreatitis seen on CT scan. He did improve, however, over his 6-day admission and was tolerating regular diet at the time of discharge. He was feeling better until the evening of Sunday the . States his brother was in town over the weekend until Sunday, but he did not have so much as a drop of alcohol. He ate a regular diet including chicken Julio the night before the symptoms resumed. On the he had recurrence of the same epigastric pain. He describes it as dull and crampy across the epigastrium, slightly worse on the right upper quadrant area.. He states it comes and goes, triggered by food. He is able to eat sometimes without pain, however, in and come on without eating as well. He has vomited at least twice with clear fluid. Tends to have some coughing before vomiting, but not otherwise. He denies fevers. On June 10, he was sent for laboratory exams, which revealed worsening renal function and white blood cell count trending up. He went back to his primary care today, and Dr. Castorena decided with worsening symptoms and concerning lab findings he should have a repeat CAT scan and direct admission. Denies any new exposures including medications not listed on his list, alcohol or other drugs, supplements, trauma, new sexual partners, or travel. He has also been taking all 4 of his new blood pressure medications.
--- NOTE | 2018-06-13 09:28 | INITIAL_ITS ---
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 PREVIOUS FUNCTIONAL STATUS/SOCIAL/FAMILY SUPPORTS:: Jason lives alone with his two dogs in [place], [place]. 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 He is independent at baseline. CURRENT FUNCTIONAL STATUS:: Jason is lying on his side, he is forthcoming with information and pleasant in interaction. He reports being most interested in having his diet advanced and working toward discharge. CM agrees to keep Jason updated with developments. ADVANCE DIRECTIVES:: None on file at [facility]. Has patient been provided with information about the portal?: Yes Did the patient sign up for the portal?: No CODE STATUS:: Full Code INSURANCE COVERAGE / FINANCIAL ISSUES:: [employer] CURRENT HOME/COMMUNITY SERVICES/EQUIPMENT:: No current services. PRIMARY CARE PHYSICIAN:: Severo Potts, POTENTIAL DISCHARGE NEEDS:: Follow up appointment with PCP, [facility] PATIENT/FAMILY EDUCATION NEEDS:: Discharge instructions, discuss Ask Me Three. ANTICIPATED BARRIERS TO DISCHARGE:: None identified. TRANSPORTATION:: Via private vehicle with friend or family. PLAN:: Jason will continue to be closely monitored; CM will continue to follow and support discharge planning considerations. Jason will likely return home with no additional services and follow up with his PCP and plan of care as prescribed. He will transport via private vehicle. Readmission - Within the Past 30 Days Yes or No: Y - Date of First Admission Date of 1st Admission: 06/04/18 - Date of this Admission Date of Admission: 06/12/18 This admission was: Direct Admit - Office Visit Since 1st Admission Have you seen your PCP in the office since discharge?: Yes Date of PCP Appointment: 06/10/18 Had an appointment Been Scheduled?: Yes Date of Scheduled Appointment: 06/10/18 - Speicalist Appointments Specialist Seen: Confusion around F/U need at [facility]: Jason reports he did not make an appointment. - I. Interview patient and/or Family Difficulty reaching your doctor or getting an office appt?: No Have you had trouble purchasing/ or taking medication?: No How do you take your medications and set up your pills?: Reports taking all prescribed medications timely. Have you had trouble with getting meals at home?: No Describe your typical meals since you have been home: Full diet tolerated: until it wasn't vomited for two days Did you feel ready for discharge when you left the last time: Yes Did you call your physician beore you came to the ED?: Yes Did your physician tell you to come in?: Yes - ED visits How many ED visits in the past 12 months: 2 (also 2 admits) - Assessment for Readmission Summary of readmission circumstances, based upon interviews: GI F/U appointment at [facility] was not scheduled by patient who discharged over the weekend. He did follow up with his primary and reports taking medications. Statement from admitting MD: 43-year-old man with history of hypertension and recent admission from 2017 to 06/08/18 with first episode of acute pancreatitis, who is presenting with worsening of abdominal pain and vomiting for the past 2 days. The patient' s initial episode of pancreatitis began on May 232017. After multiple visits to primary care and emergency room, he was direct admitted with pancreatitis. Initially worsened with progression of necrotizing pancreatitis seen on CT scan. He did improve, however, over his 6-day admission and was tolerating regular diet at the time of discharge. He was feeling better until the evening of Sunday the . States his brother was in town over the weekend until Sunday, but he did not have so much as a drop of alcohol. He ate a regular diet including chicken Julio the night before the symptoms resumed. On the he had recurrence of the same epigastric pain. He describes it as dull and crampy across the epigastrium, slightly worse on the right upper quadrant area.. He states it comes and goes, triggered by food. He is able to eat sometimes without pain, however, in and come on without eating as well. He has vomited at least twice with clear fluid. Tends to have some coughing before vomiting, but not otherwise. He denies fevers. On June 10, he was sent for laboratory exams, which revealed worsening renal function and white blood cell count trending up. He went back to his primary care today, and Dr. Castorena decided with worsening symptoms and concerning lab findings he should have a repeat CAT scan and direct admission. Denies any new exposures including medications not listed on his list, alcohol or other drugs, supplements, trauma, new sexual partners, or travel. He has also been taking all 4 of his new blood pressure medications.
--- NOTE | 2018-06-13 12:09 | W.PM.PROGNOT ---
Date of Service Date of service: 06/13/18 Time of Service: 12:09 Assessment and Plan (1) Acute pancreatitis: Current visit: No Status: Acute Significantly improved clinically, and white blood cell count also decreasing, creatinine has normalized. Patient is hungry and like to try regular food. A bit hesitant given his history, but will allow a low-fat low residue diet. Nutrition consult ordered to help with long-term management. (2) Hypertension: Current visit: No Status: Chronic Blood pressures are significantly better, but requiring 4 oral agents, and still not at goal. Titrate up metoprolol. 24-hour urines for catecholamines and metanephrines is being collected while he is here. (3) Excessive drinking alcohol: Current visit: No Status: Chronic I shared with Jason my concern with reports that he has a history of heavy drinking. He admits he drank heavily in the past, but has cut back for the past 2 months. He insists he has not had anything to drink since last admission. He again denies any other substance use. Given he is not requesting he has needed IV Dilaudid, I do not think he has a drug dependence problem. (4) Constipation: Current visit: No Status: Acute No recent change. Exam is still not consistent with an ileus. Like to avoid aggressive oral treatments. He is willing to try suppository and enema. (5) Smoker: Current visit: Yes Status: Acute Now considering a quit attempt. He declinedexam replacement while inpatient. Address again before discharge (6) Discharge planning issues: Current visit: No Status: Acute Pending progression of diet. Full code. (7) DVT prophylaxis: Current visit: No Status: Acute Low molecular weight heparin. Subjective Patient reports: no new complaints, feels better and voiding w/o difficulty; denies bowel movement, nausea, vomiting and fever Exam Narrative Exam Narrative: General: Alert and oriented, sitting comfortably in bed in no acute distress. HEENT: moist mucous membranes, conjunctive are clear Lungs: Clear to auscultation bilaterally with normal effort. Cardiovascular: Regular rate and rhythm with no murmurs gallops or rubs. Abdomen: Active bowel sounds. Mild epigastric tenderness across abdomen, slightly more on right, negative Terry's. No rebound. Extremities: No cyanosis, clubbing, or edema. Skin: No rashes or other skin lesions Objective Objective Clinical Data: Abnormal lab results 06/13/18 06/13/18 Range/Units 06:45 06:45 WBC 13.63 H (4.4-10.8) k/cumm RBC 4.18 L (4.50-6.00) m/cumm Hgb 13.0 L (13.5-17.5) g/dL Hct 38.5 L (40.0-50.0) % RDW 11.7 L (11.8-14.1) % Absolute Neutrophils 9.50 H (1.2-6.7) k/cumm Absolute Monocytes 1.49 H (0.11-0.7) k/cumm Sodium 134 L (136-145) mmol/L Albumin 2.8 L (3.4-5.0) g/dL Vital Signs Temperature 36.9 C 06/13/18 08:44 Temperature Source Tympanic 06/13/18 08:44 Pulse 80 06/13/18 08:44 Pulse Rhythm Regular 06/13/18 08:45 Respiratory Rate 16 06/13/18 08:44 Respiratory Effort Non-Labored 06/13/18 08:45 Respiratory Depth Normal 06/13/18 08:45 Respiratory Pattern Normal 06/13/18 08:45 Blood Pressure 162/106 H 06/13/18 08:44 Pulse Oximetry 99 06/13/18 09:10 Oxygen Delivery Method Room Air 06/13/18 09:10 Oxygen Flow Rate 0 06/13/18 09:10 Pain Level 0 06/12/18 20:12 Intake & Output 06/12/18 06/13/18 06/13/18 23:59 11:59 23:59 Intake Total 1008 / 1008 960 / 960 Output Total 1200 / 1200 1650 / 1650 Balance -192 / -192 -690 / -690 Weight 77.4 kg 74 kg Intake: IV 1008 / 1008 960 / 960 Oral 0 / 0 Output: Urine 1200 / 1200 1650 / 1650 Other: Urine Color Pale Yellow Yellow Urine Appearance Clear Clear Urine Odor Normal Normal Voiding Methods Toilet Toilet Laboratory Results WBC 13.63 k/cumm (4.4-10.8) H 06/13/18 06:45 RBC 4.18 m/cumm (4.50-6.00) L 06/13/18 06:45 Hgb 13.0 g/dL (13.5-17.5) L 06/13/18 06:45 Hct 38.5 % (40.0-50.0) L 06/13/18 06:45 MCV 92.1 fL (80-95) 06/13/18 06:45 MCH 31.1 pg (27.0-33.0) 06/13/18 06:45 MCHC 33.8 g/dL (32.0-36.0) 06/13/18 06:45 RDW 11.7 % (11.8-14.1) L 06/13/18 06:45 Plt Count 358 x1000/uL (130-400) 06/13/18 06:45 MPV 10.5 fL (8.0-11.0) 06/13/18 06:45 Immature Gran % 0.6 06/13/18 06:45 Neutrophils % 69.7 06/13/18 06:45 Lymphocytes % 13.9 06/13/18 06:45 Monocytes % 10.9 06/13/18 06:45 Eosinophils % 4.5 06/13/18 06:45 Basophils % 0.4 06/13/18 06:45 Absolute Neutrophils 9.50 k/cumm (1.2-6.7) H 06/13/18 06:45 Absolute Lymphocytes 1.89 k/cumm (1.2-3.4) 06/13/18 06:45 Absolute Monocytes 1.49 k/cumm (0.11-0.7) H 06/13/18 06:45 Absolute Eosinophils 0.61 k/cumm (0.0-0.7) 06/13/18 06:45 Absolute Basophils 0.05 k/cumm (0.0-0.2) 06/13/18 06:45 Sodium 134 mmol/L (136-145) L 06/13/18 06:45 Potassium 4.7 mmol/L (3.5-5.1) 06/13/18 06:45 Chloride 98 mmol/L (98-107) 06/13/18 06:45 Carbon Dioxide 27.2 mmol/L (21.0-32.0) 06/13/18 06:45 Anion Gap 8.8 mmol/L (3-11) 06/13/18 06:45 BUN 9 mg/dL (7-18) D 06/13/18 06:45 Creatinine 0.87 mg/dL (0.70-1.30) 06/13/18 06:45 Estimated GFR/1.73 m2 >= 60.00 (mL/min/1.73m2) 06/13/18 06:45 Glucose 94 mg/dL (70-100) 06/13/18 06:45 Calcium 9.4 mg/dL (8.5-10.1) 06/13/18 06:45 Total Bilirubin 0.4 mg/dL (0.2-1.0) 06/13/18 06:45 AST 16 U/L (15-37) 06/13/18 06:45 ALT 31 U/L (12-78) 06/13/18 06:45 Alkaline Phosphatase 97 U/L (46-116) 06/13/18 06:45 Total Protein 7.4 g/dL (6.4-8.2) 06/13/18 06:45 Albumin 2.8 g/dL (3.4-5.0) L 06/13/18 06:45
[2018-06-13] MEDS: Normal Saline Flush 10 ML SYR (14:25)
[2018-06-13 16:20] VITALS: BP 165/108; PULSE 85; RESP 22; TEMP 37; O2SAT 99
[2018-06-13] MEDS: Bisacodyl 10 MG SUPP PR (16:42)
[2018-06-13] MEDS: Enoxaparin 40 MG/0.4 ML SYR SC (18:10)
[2018-06-13] MEDS: Normal Saline Flush 10 ML SYR IVP (18:10)
[2018-06-13 20:09] VITALS: BP 173/120; PULSE 85; RESP 18; TEMP 37.5; O2SAT 99
[2018-06-13] MEDS: Metoprolol CR 50 MG TABCR 75 MG PO (20:11)
[2018-06-14 00:13] VITALS: BP 165/99; PULSE 79; RESP 18; TEMP 36.9; O2SAT 99
[2018-06-14] MEDS: Lactated Ringers 1,000 ML 150 ML IV ×2 (05:30→12:02)
[2018-06-14 06:51] LABS: Creatinine,24hr Ur 1.08 g/24hr (0.95-2.49); Creatinine,Urine 29.97 mg/dL; Total Volume 3650 ml
[2018-06-14] MEDS: Normal Saline Flush 10 ML SYR IVP (07:03)
[2018-06-14 07:35] VITALS: BP 162/108; PULSE 83; RESP 18; TEMP 37; O2SAT 99
[2018-06-14 08:08] LABS: Abs Immature Grans 0.08 k/cumm (0.0-0.09); Absolute Basophil Count 0.05 k/cumm (0.0-0.2); Absolute Eosinophil Count 0.68 k/cumm (0.0-0.7); Absolute Lymphocyte Count 1.69 k/cumm (1.2-3.4); Absolute Monocyte Count 1.46 k/cumm (0.11-0.7); Absolute Neutrophil Count 8.19 k/cumm (1.2-6.7); Basophils % 0.4; Eosinophils % 5.6; HCT 37.8 % (40.0-50.0); HGB 12.7 g/dL (13.5-17.5); Immature Grans % 0.7; Lymphocytes % 13.9; Mean Corp. HGB Concentration 33.6 g/dL (32.0-36.0); Mean Corpuscular Hemoglobin 31.2 pg (27.0-33.0); Mean Corpuscular Volume 92.9 fL (80-95); Mean Platelet Volume 11.2 fL (8.0-11.0); Neutrophils % 67.4; Platelet Count 355 x1000/uL (130-400); RBC 4.07 m/cumm (4.50-6.00); RBC Distribution Width 11.6 % (11.8-14.1); White Blood Cell Count 12.15 k/cumm (4.4-10.8)
--- NOTE | 2018-06-14 09:22 | PDOC.CMPRO ---
- If Service Date Differs Date of service: 06/14/18 Time of Service: 09:22 Care Management Progress Note S/O: A: Brain is a 43 year old male admitted with pancreatitis P: Brain will return home when medically ready.
[2018-06-14] MEDS: Lisinopril 20 MG TAB 40 MG PO (09:56)
[2018-06-14] MEDS: Spironolactone 50 MG TAB PO (09:56)
[2018-06-14] MEDS: Metoprolol CR 50 MG TABCR 75 MG PO (09:57)
[2018-06-14] MEDS: amLODIPine 10 MG TAB PO (09:57)
--- NOTE | 2018-06-14 10:25 | NS.NUTBLAN_ITS ---
Late entry: June 17, 2018 1028 h Encounter date: June 14, 2018 1000h Reviewed pancreatitis nutrition therapy with Mr. Ryder. Provided written materials as well as my contact information. Mr. Ryder demonstrated a good understanding of the information.. Thank you for the consult. Lou Jackson RDN, CD
[2018-06-14] MEDS: Sennosides/Docusate Sodium TAB 1 TAB PO (12:05)
--- NOTE | 2018-06-14 14:16 | CHAPLAIN ---
I had a short visit with Jason this morning. He said he had received bad news from work and was continuing to hear from coworkers. I explained role and offered support.
--- NOTE | 2018-06-14 14:45 | W.PM.DS.N ---
Date of service: 06/14/18 Time of Service: 14:46 DS: Diagnosis Discharge Diagnosis (1) Acute pancreatitis: Status: Acute (2) Hypertension: Status: Chronic (3) Excessive drinking alcohol: Status: Chronic (4) Constipation: Status: Acute (5) Smoker: Status: Acute (6) Discharge planning issues: Status: Acute (7) DVT prophylaxis: Status: Acute Discharge Plan Disposition Patient Disposition: HOME Condition: Good Discharge Details Reason For Visit: PANCREATITIS Admit Date/Time: 06/12/18 16:05 Admit Provider: Armando Navas Attending Provider: Armando Navas Primary Care Provider: Del[facility] Course Hospital Course: 43-year-old man with recent 5-day hospitalization for his first episode of acute pancreatitis who presented with recurrence of his symptoms for 2 days. Symptoms were associated with eating. He denied any alcohol use. No other triggers of pancreatitis were identified. Lipase was elevated to 1361, white blood cell count was 19, and CT scan was consistent with acute pancreatitis with some increased area of necrosis. Patient was admitted for IV fluids and bowel rest and IV analgesics. He required very little pain medication. His abdominal pain improved and he tolerated progression of his diet and eating regular food and drinking adequate fluids by the day of discharge. Of note, inflammatory markers were elevated including an ESR of 91 and a CRP of 9.76. Blood pressure was definitely better than at previous admission on 4 antihypertensive medications. His metoprolol was titrated up during his admission. Given resistant hypertension and adrenal adenoma seen on previous CT scan, 24-hour urine for catecholamines and metanephrines was sent and is pending at the time of discharge. Smoking cessation was discussed. He used Nicotrol Inhaler while here. We discussed quit works and other medications, but he declined prescription at the time of discharge. Home Meds and New Rx's Prescriptions: New nicotine [Nicotrol] 10 mg Cartridge 10 mg Inhalation Q2H PRN PRNQty: 0 RF: 0 polyethylene glycol 3350 17 gram Powder In Packet 17 g PO DAILY PRN PRNQty: 0 RF: 0 metoprolol succinate 200 mg tablet extended release 24 hr 200 mg PO DAILY Qty: 30 RF: 1 ondansetron 4 mg tablet,disintegrating 4 mg PO TID PRN (Reason: nausea and vomiting) Qty: 14 RF: 0 Continue lisinopril 20 mg Tablet 40 mg PO DAILY Qty: 30 RF: 0 spironolactone 50 mg tablet 50 mg PO BID Qty: 60 RF: 0 amlodipine 10 mg tablet 10 mg PO DAILY Qty: 30 RF: 0 Discontinued metoprolol succinate 50 mg tablet extended release 24 hr 50 mg PO BID Qty: 30 RF: 2 Discharge Instructions Instructions: Pancreatitis (DC) Additional Instructions: Follow the dietary instructions for pancreatitis. Avoid all alcohol. Take the higher dose of metoprolol. Note this is once a day dosing. Continue other blood pressure medications. Labs done before visit with primary care. Activity:: Activity as Tolerated Equipment/Supplies:: No Equipment Needed Diet:: see handout regarding pancreatitis Discharge Orders Discharge Orders: Discharge Order (Routine); Ordered 06/14/18 Ordered By: Armando Navas Other Ambulatory Orders: Comprehensive Metabolic Panel (Routine) Location: Determined by Patient Ordered By: Armando Navas C-Reactive Protein (Routine) Location: Determined by Patient Ordered By: Armando Navas Discharge Data Discharge Date/Time-TO BE ENTERED AT DEPARTURE: 06/14/18 14:45 Exam Narrative Exam Narrative: General: Alert and oriented, sitting comfortably in bed in no acute distress. HEENT: moist mucous membranes, conjunctive are clear Lungs: Clear to auscultation bilaterally with normal effort. Cardiovascular: Regular rate and rhythm with no murmurs gallops or rubs. Abdomen: Active bowel sounds. Mild epigastric tenderness across abdomen, negative Terry's. No rebound. Extremities: No cyanosis, clubbing, or edema. Skin: No rashes or other skin lesions DS: Data Vitals/I&O Vitals and I&O: Vital Signs Temperature 37 C 06/14/18 07:35 Temperature Source Tympanic 06/14/18 07:35 Pulse 83 06/14/18 07:35 Pulse Rhythm Regular 06/14/18 05:35 Respiratory Rate 18 06/14/18 07:35 Respiratory Effort Non-Labored 06/14/18 05:35 Respiratory Depth Normal 06/14/18 05:35 Respiratory Pattern Normal 06/14/18 05:35 Blood Pressure 162/108 H 06/14/18 07:35 Pulse Oximetry 99 06/14/18 07:35 Oxygen Delivery Method Room Air 06/14/18 07:35 Oxygen Flow Rate 0 06/14/18 07:35 Pain Level 3 11/23/18 07:35 Intake & Output 06/13/18 06/14/18 06/14/18 23:59 11:59 23:59 Intake Total 2430 / 2430 1240 / 1240 1100 / 1100 Output Total 1750 / 1750 1600 / 1600 Balance 680 / 680 -360 / -360 1100 / 1100 Weight 72 kg Intake: IV 1950 / 1950 1000 / 1000 980 / 980 Oral 480 / 480 240 / 240 120 / 120 Output: Urine 1750 / 1750 1600 / 1600 Other: Urine Color Pale Yellow Yellow Urine Appearance Clear Clear Urine Odor None Normal Comment Pt on 24 hour urine collection. added to 24 hour bucket Voiding Methods Toilet Toilet Labs on day of discharge: Labs from last 24 hours 06/14/18 06/12/18 06/12/18 06:25 23:15 23:15 WBC 12.15 H RBC 4.07 L Hgb 12.7 L Hct 37.8 L MCV 92.9 MCH 31.2 MCHC 33.6 RDW 11.6 L Plt Count 355 MPV 11.2 H Immature Gran % 0.7 Neutrophils % 67.4 Lymphocytes % 13.9 Monocytes % 12.0 Eosinophils % 5.6 Basophils % 0.4 Absolute Neutrophils 8.19 H Absolute Lymphocytes 1.69 Absolute Monocytes 1.46 H Absolute Eosinophils 0.68 Absolute Basophils 0.05 Ur Collection Duration Pending Pending Urine Total Volume Pending Pending Urine Creatinine Ur Creatinine 24 Hour Urine Epinephrine Pending Urine Norepinephrine Pending U Metanephrines 24 Hr Pending U Normetanephrine 24h Pending U Tot Metanephrine 24h Pending U Metanephrine Comment Pending Urine Dopamine Pending 06/12/18 23:15 WBC RBC Hgb Hct MCV MCH MCHC RDW Plt Count MPV Immature Gran % Neutrophils % Lymphocytes % Monocytes % Eosinophils % Basophils % Absolute Neutrophils Absolute Lymphocytes Absolute Monocytes Absolute Eosinophils Absolute Basophils Ur Collection Duration Urine Total Volume 3650 Urine Creatinine 29.97 Ur Creatinine 24 Hour 1.08 Urine Epinephrine Urine Norepinephrine U Metanephrines 24 Hr U Normetanephrine 24h U Tot Metanephrine 24h U Metanephrine Comment Urine Dopamine
[2018-06-14 15:00] VITALS: BP 140/99; PULSE 86
--- NOTE | 2018-06-14 18:13 | PDOC.CMDIS ---
- If Service Date Differs Date of service: 06/14/18 Time of Service: 18:13 LACE Index Scoring Tool - Questions: Length of Stay (in days): 3 Acuity (Admit via E.D.?): Yes E.D. Visits: 3 - Answers: Total Score: 9 Risk of Readmission: Low Risk Care Management Discharge Reason for Hospitalization: Pancreatitis Discharge Plan: Jason wants to be discharged today he states he is going ?stir crazy? in the hospital. Jason states he feels better and feels that he is tolerating a diet and his discomfort is under control. Jason will follow up with his primary care provider. Patient/Family Education Needs: Discharge education, limitations and follow up plan of care. CM reviewed diet, self management and ask me three discussion. Reviewed substaining from ETOH and how alcohol affects the pancrease.
[2018-06-18 15:18] LABS: Urine Volume 3650 mL
[2018-06-18 17:25] LABS: Metanephrines, U 190 mcg/24 h; Normetanephrine, U 788 mcg/24 h; Total Metanephrines, U 978 mcg/24 h; Urine Volume 3650 mL
== END 2018-06-14 15:26 | disposition home or self-care (01) | DRG 440 ==
PROVIDERS: Admitting Provider Family Medicine; PCP Emergency Medicine; Visit Provider Family Medicine
DX: K85.90 Acute pancreatitis without necrosis or infection, unspecified (principal); R70.0 Elevated erythrocyte sedimentation rate; I10 Essential (primary) hypertension; D35.00 Benign neoplasm of unspecified adrenal gland; F17.210 Nicotine dependence, cigarettes, uncomplicated; F10.10 Alcohol abuse, uncomplicated; K59.00 Constipation, unspecified; Z71.3 Dietary counseling and surveillance
CPT/HCPCS: 36415; 80053; 99222; 99232; 99239; J1650; 82384; 82570; 83835; 85025

== ENCOUNTER 2018-06-18 13:22 | Outpatient (CLI) | payer OTHER, SELFPAY ==
[2018-06-18 14:39] LABS: ALT 30 U/L (12-78); AST 15 U/L (15-37); Albumin 3.3 g/dL (3.4-5.0); Alkaline Phosphatase 115 U/L (46-116); Anion Gap 12.6 mmol/L (3-11); BUN 13 mg/dL (7-18); Bilirubin, Total 0.2 mg/dL (0.2-1.0); C-Reactive Protein 3.33 mg/dL (0.0-0.3); CO2 24.4 mmol/L (21.0-32.0); CREATININE 1.24 mg/dL (0.70-1.30); Calcium 9.4 mg/dL (8.5-10.1); Chloride 99 mmol/L (98-107); Glucose 115 mg/dL (70-100); Potassium 4.2 mmol/L (3.5-5.1); Sodium 136 mmol/L (136-145); Total Protein 7.4 g/dL (6.4-8.2)
== END 2018-06-18 13:42 ==
PROVIDERS: PCP Emergency Medicine; Visit Provider Family Medicine
DX: K85.90 Acute pancreatitis without necrosis or infection, unspecified (principal); I10 Essential (primary) hypertension
CPT/HCPCS: 80053; 86140

== ENCOUNTER 2018-06-28 12:56 | Outpatient (CLI) | payer OTHER, SELFPAY ==
[2018-06-28 13:19] LABS: Abs Immature Grans 0.05 k/cumm (0.0-0.09); Absolute Basophil Count 0.03 k/cumm (0.0-0.2); Absolute Lymphocyte Count 2.32 k/cumm (1.2-3.4); Absolute Monocyte Count 0.93 k/cumm (0.11-0.7); Basophils % 0.2; Eosinophils % 3.7; HCT 38.2 % (40.0-50.0); HGB 12.8 g/dL (13.5-17.5); Immature Grans % 0.4; Lymphocytes % 17.2; Mean Corp. HGB Concentration 33.5 g/dL (32.0-36.0); Mean Corpuscular Hemoglobin 30.6 pg (27.0-33.0); Mean Corpuscular Volume 91.4 fL (80-95); Mean Platelet Volume 9.8 fL (8.0-11.0); Monocytes % 6.9; Neutrophils % 71.6; Platelet Count 339 x1000/uL (130-400); RBC 4.18 m/cumm (4.50-6.00); RBC Distribution Width 11.7 % (11.8-14.1); White Blood Cell Count 13.51 k/cumm (4.4-10.8)
[2018-06-28 13:34] LABS: Absolute Neutrophil Count 9.67 k/cumm (1.2-6.7)
[2018-06-28 14:10] LABS: ALT 33 U/L (12-78); AST 16 U/L (15-37); Albumin 3.5 g/dL (3.4-5.0); Alkaline Phosphatase 113 U/L (46-116); Anion Gap 10.3 mmol/L (3-11); BUN 27 mg/dL (7-18); Bilirubin, Total 0.2 mg/dL (0.2-1.0); CO2 26.7 mmol/L (21.0-32.0); CREATININE 1.12 mg/dL (0.70-1.30); Chloride 97 mmol/L (98-107); Glucose 127 mg/dL (70-100); Lipase 2211 U/L (73-393); Magnesium 1.9 mg/dL (1.8-2.4); Potassium 4.3 mmol/L (3.5-5.1); Sodium 134 mmol/L (136-145); Total Protein 7.3 g/dL (6.4-8.2)
== END 2018-06-28 13:16 ==
PROVIDERS: PCP Emergency Medicine; Visit Provider Internal Medicine
DX: I10 Essential (primary) hypertension (principal); E87.6 Hypokalemia; F17.200 Nicotine dependence, unspecified, uncomplicated; K59.00 Constipation, unspecified; K85.90 Acute pancreatitis without necrosis or infection, unspecified
CPT/HCPCS: 36415; 80053; 83690; 83735; 85025

== ENCOUNTER 2018-07-31 09:59 | Outpatient (CLI) | payer OTHER, SELFPAY ==
[2018-07-31 10:47] LABS: Abs Immature Grans 0.13 k/cumm (0.0-0.09); Absolute Basophil Count 0.02 k/cumm (0.0-0.2); Absolute Eosinophil Count 0.17 k/cumm (0.0-0.7); Absolute Lymphocyte Count 2.06 k/cumm (1.2-3.4); Absolute Monocyte Count 1.24 k/cumm (0.11-0.7); Absolute Neutrophil Count 7.41 k/cumm (1.2-6.7); Basophils % 0.2; Eosinophils % 1.5; HCT 36.7 % (40.0-50.0); Immature Grans % 1.2; Lymphocytes % 18.7; Mean Corp. HGB Concentration 32.7 g/dL (32.0-36.0); Mean Corpuscular Hemoglobin 30.6 pg (27.0-33.0); Mean Corpuscular Volume 93.6 fL (80-95); Mean Platelet Volume 10.5 fL (8.0-11.0); Monocytes % 11.2; Neutrophils % 67.2; Platelet Count 289 x1000/uL (130-400); RBC 3.92 m/cumm (4.50-6.00); RBC Distribution Width 13.4 % (11.8-14.1); White Blood Cell Count 11.03 k/cumm (4.4-10.8)
[2018-07-31 11:22] LABS: ALT 29 U/L (12-78); AST 15 U/L (15-37); Albumin 2.7 g/dL (3.4-5.0); Alkaline Phosphatase 113 U/L (46-116); Amylase 112 U/L (25-115); Anion Gap 8.3 mmol/L (3-11); BUN 12 mg/dL (7-18); Bilirubin, Total 0.2 mg/dL (0.2-1.0); CO2 25.7 mmol/L (21.0-32.0); CREATININE 0.93 mg/dL (0.70-1.30); Calcium 8.8 mg/dL (8.5-10.1); Chloride 108 mmol/L (98-107); Glucose 88 mg/dL (70-100); Lipase 790 U/L (73-393); Potassium 4.9 mmol/L (3.5-5.1); Sodium 142 mmol/L (136-145); Total Protein 7.1 g/dL (6.4-8.2)
[2018-07-31 11:46] LABS: ESR 53 MM/HR (0-15)
== END 2018-07-31 10:19 ==
PROVIDERS: PCP Emergency Medicine; Visit Provider Internal Medicine
DX: K85.90 Acute pancreatitis without necrosis or infection, unspecified (principal); I10 Essential (primary) hypertension
CPT/HCPCS: 36415; 80053; 83690; 85652; 82150; 85025

== ENCOUNTER 2018-11-27 08:53 | Outpatient (CLI) | payer OTHER, SELFPAY ==
[2018-11-27 10:59] LABS: Absolute Basophil Count 0.02 k/cumm (0.0-0.2); Absolute Eosinophil Count 0.25 k/cumm (0.0-0.7); Absolute Monocyte Count 1.36 k/cumm (0.11-0.7); Basophils % 0.1; Eosinophils % 1.4; HCT 46.8 % (40.0-50.0); HGB 15.7 g/dL (13.5-17.5); Immature Grans % 0.6; Mean Corp. HGB Concentration 33.5 g/dL (32.0-36.0); Mean Corpuscular Hemoglobin 30.3 pg (27.0-33.0); Mean Corpuscular Volume 90.2 fL (80-95); Mean Platelet Volume 11.5 fL (8.0-11.0); Monocytes % 7.7; Neutrophils % 77.2; Platelet Count 201 x1000/uL (130-400); RBC 5.19 m/cumm (4.50-6.00); RBC Distribution Width 13.4 % (11.8-14.1); White Blood Cell Count 17.72 k/cumm (4.4-10.8)
[2018-11-27 11:00] LABS: Absolute Neutrophil Count 13.68 k/cumm (1.2-6.7)
[2018-11-27 11:26] LABS: ALT 92 U/L (12-78); AST 33 U/L (15-37); Albumin 3.8 g/dL (3.4-5.0); Alkaline Phosphatase 109 U/L (46-116); Anion Gap 8.2 mmol/L (3-11); BUN 12 mg/dL (7-18); Bilirubin, Total 0.3 mg/dL (0.2-1.0); CO2 27.8 mmol/L (21.0-32.0); CREATININE 0.87 mg/dL (0.70-1.30); Chloride 103 mmol/L (98-107); Glucose 84 mg/dL (70-100); Lipase 104 U/L (73-393); Potassium 4.5 mmol/L (3.5-5.1); Sodium 139 mmol/L (136-145); Total Protein 7.4 g/dL (6.4-8.2)
[2018-11-27 11:35] LABS: Calcium 8.8 mg/dL (8.5-10.1)
== END 2018-11-27 09:13 ==
PROVIDERS: PCP Emergency Medicine; Visit Provider Internal Medicine
DX: K85.90 Acute pancreatitis without necrosis or infection, unspecified (principal); I10 Essential (primary) hypertension
CPT/HCPCS: 36415; 80053; 83690; 85025

== ENCOUNTER 2020-01-21 07:12 | Emergency (ER) | payer OTHER, SELFPAY ==
[2020-01-21] VITALS (22 sets, daily range): BP systolic 139–172; BP diastolic 91–113; PULSE 64–82; RESP 10–23; TEMP 36.1; O2SAT 96–100
[2020-01-21 07:47] LABS: Abs Immature Grans 0.16 k/cumm (0.0-0.09); Absolute Basophil Count 0.02 k/cumm (0.0-0.2); Absolute Eosinophil Count 0.02 k/cumm (0.0-0.7); Absolute Monocyte Count 1.34 k/cumm (0.11-0.7); Basophils % 0.1; Eosinophils % 0.1; HGB 17.8 g/dL (13.5-17.5); Lymphocytes % 10.3; Mean Corp. HGB Concentration 34.2 g/dL (32.0-36.0); Mean Corpuscular Hemoglobin 32.2 pg (27.0-33.0); Mean Platelet Volume 10.3 fL (8.0-11.0); Neutrophils % 80.5; Platelet Count 245 x1000/uL (130-400); RBC 5.53 m/cumm (4.50-6.00); RBC Distribution Width 13.3 % (11.8-14.1); White Blood Cell Count 16.78 k/cumm (4.4-10.8)
[2020-01-21 07:48] LABS: Absolute Lymphocyte Count 1.73 k/cumm (1.2-3.4); Absolute Neutrophil Count 13.51 k/cumm (1.2-6.7)
[2020-01-21] MEDS: Ondansetron 4 MG/2 ML VIAL IVP (07:55)
[2020-01-21] MEDS: Normal Saline 1,000 ML 1000 ML IV (07:55)
[2020-01-21 08:04] LABS: ALT 61 U/L (16-63); AST 90 U/L (15-37); Albumin 4.6 g/dL (3.4-5.0); Alkaline Phosphatase 115 U/L (46-116); Anion Gap 15.6 mmol/L (3-11); BUN 15 mg/dL (7-18); Bilirubin, Total 0.9 mg/dL (0.2-1.0); CO2 23.4 mmol/L (21.0-32.0); CREATININE 1.59 mg/dL (0.70-1.30); Calcium 9.6 mg/dL (8.5-10.1); Chloride 95 mmol/L (98-107); Estimated GFR 47.76 (mL/min/1.73m2); Glucose 136 mg/dL (74-106); Lipase 100 U/L (73-393); Magnesium 2.1 mg/dL (1.8-2.4); Potassium 4.1 mmol/L (3.5-5.1); Sodium 134 mmol/L (136-145)
[2020-01-21 08:05] LABS: Troponin I 3.74 ng/mL (<0.06)
--- NOTE | 2020-01-21 08:11 | ED.GENADUL_ITS ---
Discharge Plan Disposition Patient Disposition: [facility] Condition: Critical Discharge Details Chief Complaint: GenMedical Clinical Impression: STEMI (ST elevation myocardial infarction) Primary Care Provider: Raeann Reed ED Provider: Radha Dasilva Home Meds and New Rx's Prescriptions: No Action amlodipine 5 mg tablet 5 mg PO DAILY Qty: 60 RF: 6 lisinopril 20 mg tablet 40 mg PO DAILY Qty: 60 RF: 5 metoprolol succinate 100 mg tablet extended release 24 hr 100 mg PO DAILY Qty: 30 RF: 5 Discharge Data Discharge Date/Time-TO BE ENTERED AT DEPARTURE: 01/21/20 09:29 Medical Decision Making 0800 -- 44-year-old male with a history of hypertension, pancreatitis, frequent alcoholic drinker and daily tobacco smoker presents with vomiting and pain under both axilla with radiation down upper extremities dull anterior chest pain since yesterday. EKG on arrival at 0722 noted a rate of 66, sinus with [address] elevation in anterior leads with T wave inversion in aVL concerning for STEMI. Blood pressure on arrival 165/110, remainder vitals within normal limits. Shortly after my arrival at 0800 to ED, labs returned and noted a troponin of 3.74. [facility] transfer center paged and EKG sent. Aspirin, Plavix, heparin bolus and drip and Lopressor IV ordered. 829 --Case discussed with [facility] cardiology --agree with plan for nitroglycerin drip. Recommend lytics. 50 mg of TNKase IV x1 ordered. BP 155/100. [place] not flying due to weather. Patient agreeable with plan for transfer. 909 --repeat EKG with slightly more pronounced T waves in 1 and aVL, no worsening ST elevation in anterior leads. Patient hemodynamically stable. Medical Records Medical records reviewed: Yes I reviewed the patient's medical records. Lab Data Lab results reviewed: Yes I reviewed the patient's lab results. Labs: Laboratory Tests Range/Units 01/21/20 01/21/20 01/21/20 07:33 07:33 07:33 WBC (4.4-10.8) k/cumm 16.78 H RBC (4.50-6.00) m/cumm 5.53 Hgb (13.5-17.5) g/dL 17.8 H Hct (40.0-50.0) % 52.0 H MCV (80-95) fL 94.0 MCH (27.0-33.0) pg 32.2 MCHC (32.0-36.0) g/dL 34.2 RDW (11.8-14.1) % 13.3 Plt Count (130-400) x1000/uL 245 MPV (8.0-11.0) fL 10.3 Immature Gran % % 1.0 Neutrophils % 80.5 Lymphocytes % 10.3 Monocytes % 8.0 Eosinophils % 0.1 Basophils % 0.1 Absolute Neutrophils (1.2-6.7) k/cumm 13.51 H Absolute Lymphocytes (1.2-3.4) k/cumm 1.73 Absolute Monocytes (0.11-0.7) k/cumm 1.34 H Absolute Eosinophils (0.0-0.7) k/cumm 0.02 Absolute Basophils (0.0-0.2) k/cumm 0.02 PT (9.3-11.0) sec 10.8 INR (0.9-1.1) 1.1 APTT (21.0-31.4) sec 26.1 Sodium (136-145) mmol/L 134 L Potassium (3.5-5.1) mmol/L 4.1 Chloride (98-107) mmol/L 95 L Carbon Dioxide (21.0-32.0) mmol/L 23.4 Anion Gap (3-11) mmol/L 15.6 H BUN (7-18) mg/dL 15 Creatinine (0.70-1.30) mg/dL 1.59 H Estimated GFR/1.73 m2 (mL/min/1.73m2) 47.76 Glucose (74-106) mg/dL 136 H Calcium (8.5-10.1) mg/dL 9.6 Magnesium (1.8-2.4) mg/dL 2.1 Total Bilirubin (0.2-1.0) mg/dL 0.9 AST (15-37) U/L 90 H ALT (16-63) U/L 61 Alkaline Phosphatase (46-116) U/L 115 Troponin I (<0.06) ng/mL 3.74 H* Total Protein (6.4-8.2) g/dL 9.0 H Albumin (3.4-5.0) g/dL 4.6 Lipase (73-393) U/L 100 ECG Data Attestation: I personally reviewed and interpreted this ECG (s) as follows: Interpretation: #1 -- rate of 66, sinus, [address] elevation noted in V2, V3, V4 and V5, [address] elevation in V6 concerning for STEMI. T wave inversion in aVL. FL 172, QTc 471. QRS 138. #2 -- rate of 66, sinus, [address] elevation noted in V2, V3, V4 V5. More pronounced inverted T wave in aVL and now in lead I. FL 180. QTc 457. QRS 128. HPI General Mode of arrival: ambulatory . Date/Time Provider Initiated Documentation: 01/21/20 07:32 . Limitations to Documentation: no limitations . Information obtained by: patient . HPI Narrative: Pt is a 44yo M w/ a h/o HTN, frequent alcohol abuse, daily tobacco smoker who presents to the ED w/ a c/o vomiting and pain under both axilla currently 4/10 and dull anterior chest pain currently 2/10 since yesterday. Patient states symptoms started with vomiting mainly clear mucus 2-3 times yesterday as well as today. He denies any recent fever, shortness of breath, dizziness, abdominal pain. He denies any aggravating or alleviating factors. States his last alcoholic drink was 2 days ago. He states he drinks approximately a sixpack of beer 3-4 times weekly. Related Data Home Medications Medication Instructions Recorded Confirmed amlodipine 5 mg tablet 5 mg PO DAILY #60 tab 11/27/18 01/21/20 lisinopril 20 mg tablet 40 mg PO DAILY #60 tab 08/15/19 01/21/20 metoprolol succinate 100 mg 100 mg PO DAILY #30 tab 08/15/19 01/21/20 tablet,extended release 24 hr Previous Rx's Medication Instructions Recorded amlodipine 5 mg tablet 5 mg PO DAILY #60 tab 11/27/18 lisinopril 20 mg tablet 40 mg PO DAILY #60 tab 08/15/19 metoprolol succinate 100 mg 100 mg PO DAILY #30 tab 08/15/19 tablet,extended release 24 hr Allergies Allergy/AdvReac Type Severity Reaction Status Date / Time No Known Allergies Allergy Verified 01/21/20 07:24 General Stated Complaint: GenMedical SHADY: 2 Review of Systems All systems reviewed & are unremarkable except as noted in HPI and below Constitutional Constitutional: Reports as per HPI, Denies chills and Denies fever(s) Eyes Eyes: Denies blurry vision ENT Ears, Nose, Mouth, and Throat: Denies dizziness, Denies sore throat and Denies throat swelling Cardiovascular Cardiovascular: Reports chest pain and Denies dyspnea Respiratory Respiratory: Denies cough and Denies dyspnea Gastrointestinal Gastrointestinal: Denies abdominal pain, Denies diarrhea and Reports vomiting Genitourinary Genitourinary: Denies hematuria and Denies dysuria Musculoskeletal Musculoskeletal: Denies back pain and Denies numbness Integumentary/Breasts Skin/Breast: Denies lesions and Denies rash Neurologic Neurologic: Denies dizziness, Denies localized weakness and Denies numbness Allergic/Immunologic Allergic/Immunologic: Denies throat swelling [facility] Medical History (Updated 01/21/20 @ 08:39 by Radha Dasilva DO) Adrenal adenoma (Chronic) Hypertension (Chronic) We will try to taper him off of his antihypertensive medications slowly. We will decrease his metoprolol to 100/day today. Recheck him in a month. Pancreatitis (Chronic) Surgical History (Updated 01/21/20 @ 08:25 by Radha Dasilva DO) Amputation of right arm (Acute) traumatic; due to ski lift injury Social History Smoking/Tobacco Use Status: Current every day Tobacco Type: cigarettes Quit status: considering quitting Counseling given: provider counseling Alcohol Intake: current Alcohol Intake frequency: a few times a week Drug use: Daily Substance use type: marijuana Adopted: Yes Do you feel safe at home: Yes Do you feel safe in your relationship?: Yes Additional Social history: Grew up in [place], attended [employer] and is worked at [employer] since then. He is adopted, does not know his family Lives in [place]. No kids, has 2 dogs. No sexual partner currently Smokes 15-20 cigarettes a day, but has not since he has been sick. He was rare marijuana, nothing recent and no history of other drug or pill use. Moderate alcohol as described in HPI. Denies history of use disorder. Exam Const General: cooperative and no acute distress Orientation: alert, awake and oriented x3 [facility] Head: normal to inspection Face and sinus: normal facial exam Eyes General: appearance normal, both eyes and all related structures EOM: EOM intact bilaterally Neck Neck: normal visual inspection and No submandibular swelling Lymphatic: no lymphadenopathy noted Chest Chest: normal inspection of the chest and no tenderness Resp Effort & Inspection: normal respiratory effort and able to speak in complete sentences Auscultation: clear to auscultation bilaterally Cardio Rate: regular rate Rhythm: regular rhythm GI Inspection: normal to inspection Palpation: soft, not firm, not rigid and nontender Auscultation: normal bowel sounds Skin General skin exam: no rashes or lesions noted Neuro General: patient alert, patient awake and patient oriented x3 Cognition: normal cognition Speech: speech normal Motor: muscle tone normal throughout Sensory Exam: no sensory deficits noted Extrem General: normal to inspection, full ROM, capillary refill normal, no calf tenderness bilaterally and no edema Psych Appearance: grossly normal Mental Status: mental status grossly normal Speech and Movement: speech and movement normal Affect: normal affect Course Vital Signs Vital signs: Vital Signs Temperature 97.0 F L 01/21/20 07:17 Pulse 66 01/21/20 07:17 Respiratory Rate 15 01/21/20 07:17 Blood Pressure 165/110 H 01/21/20 07:17 Pulse Oximetry 100 01/21/20 07:17 Temperature 97.0 F L 01/21/20 07:17 Temperature Source Temporal Artery Scan 01/21/20 07:17 Pulse 65 01/21/20 07:46 Pulse 67 01/21/20 07:50 Respiratory Rate 15 01/21/20 07:50 Respiratory Effort Non-Labored 01/21/20 07:38 Respiratory Depth Normal 01/21/20 07:38 Respiratory Pattern Normal 01/21/20 07:38 Blood Pressure 167/108 H 01/21/20 07:46 Blood Pressure Mean 123 01/21/20 07:46 Blood Pressure Position Supine 01/21/20 07:17 Pulse Oximetry 98 01/21/20 07:50 Oxygen Delivery Method Room Air 01/21/20 07:17 Oxygen Flow Rate 0 01/21/20 07:17 Pain Level 4 01/21/20 07:17 Lab/Test Results Lab/Test Results: Laboratory Tests Range/Units 01/21/20 01/21/20 07:33 07:33 WBC (4.4-10.8) k/cumm 16.78 H RBC (4.50-6.00) m/cumm 5.53 Hgb (13.5-17.5) g/dL 17.8 H Hct (40.0-50.0) % 52.0 H MCV (80-95) fL 94.0 MCH (27.0-33.0) pg 32.2 MCHC (32.0-36.0) g/dL 34.2 RDW (11.8-14.1) % 13.3 Plt Count (130-400) x1000/uL 245 MPV (8.0-11.0) fL 10.3 Immature Gran % % 1.0 Neutrophils % 80.5 Lymphocytes % 10.3 Monocytes % 8.0 Eosinophils % 0.1 Basophils % 0.1 Absolute Neutrophils (1.2-6.7) k/cumm 13.51 H Absolute Lymphocytes (1.2-3.4) k/cumm 1.73 Absolute Monocytes (0.11-0.7) k/cumm 1.34 H Absolute Eosinophils (0.0-0.7) k/cumm 0.02 Absolute Basophils (0.0-0.2) k/cumm 0.02 Sodium (136-145) mmol/L 134 L Potassium (3.5-5.1) mmol/L 4.1 Chloride (98-107) mmol/L 95 L Carbon Dioxide (21.0-32.0) mmol/L 23.4 Anion Gap (3-11) mmol/L 15.6 H BUN (7-18) mg/dL 15 Creatinine (0.70-1.30) mg/dL 1.59 H Estimated GFR/1.73 m2 (mL/min/1.73m2) 47.76 Glucose (74-106) mg/dL 136 H Calcium (8.5-10.1) mg/dL 9.6 Magnesium (1.8-2.4) mg/dL 2.1 Total Bilirubin (0.2-1.0) mg/dL 0.9 AST (15-37) U/L 90 H ALT (16-63) U/L 61 Alkaline Phosphatase (46-116) U/L 115 Troponin I (<0.06) ng/mL 3.74 H* Total Protein (6.4-8.2) g/dL 9.0 H Albumin (3.4-5.0) g/dL 4.6 Lipase (73-393) U/L 100 Critical Care Time Critical Care Time Critical Care Time: Yes Total Critical Care Time: 60 Attestation: I spent 60 minutes of critical care time with this patient. This does not include time spent on separately reported billable procedures.
--- NOTE | 2020-01-21 08:15 | DI.RAD_ITS ---
EXAM: XR PORTABLE CHEST AP CLINICAL HISTORY: chest pain, elevated troponin, r/o acute disease TECHNIQUE: 2D digital imaging was performed. COMPARISON: No exams were available for comparison FINDINGS: MEDIASTINUM: Normal. HEART: Normal. PULMONARY VASCULATURE: Normal. LUNGS: Clear. PLEURAL SPACE: No pleural effusion or pneumothorax. BONE:Normal. OTHER FINDINGS:Normal. IMPRESSION: No acute pulmonary findings. DATA REPOSITORY: RADIATION DOSE DELIVERED:
[2020-01-21] MEDS: Clopidogrel 300 MG TAB 600 MG PO (08:19)
[2020-01-21] MEDS: Aspirin 325 MG TAB PO (08:19)
[2020-01-21 08:25] LABS: INR 1.1 (0.9-1.1); PTT Activated 26.1 sec (21.0-31.4); Prothrombin Time 10.8 sec (9.3-11.0)
[2020-01-21] MEDS: Metoprolol 5 MG/5 ML VIAL IVP (08:36)
[2020-01-21] MEDS: Normal Saline 1,000 ML 30 ML IV (08:45)
[2020-01-21] MEDS: Tenecteplase 50 MG KIT IVP (08:53)
--- NOTE | 2020-01-21 09:34 | NUR.NOTE ---
Nursing Note: At 919 Pt care report transferred to EMS. At the time of transfer the PT is alert and oriented vitals stable. IV infusions reviewed with [employer] ([facility]) upon transfer. All dosages confirmed prior to departure. AT 929 PT report called [facility] laboratory manager. Spoke with Jason (RN). During transfer report all Pt care information, vitals, treatments, medications, and interventions reviewed/transferred at this time.
== END 2020-01-21 09:29 | disposition short-term general hospital (02) ==
PROVIDERS: Emergency Medicine; Emergency Provider Physician Assistant; PCP Nurse Practitioner
DX: I21.3 ST elevation (STEMI) myocardial infarction of unspecified site (principal); I10 Essential (primary) hypertension; R11.2 Nausea with vomiting, unspecified; F17.210 Nicotine dependence, cigarettes, uncomplicated
CPT/HCPCS: 36415; 80053; 83690; 93005; 96361; 96365; 96375; 99291; 71045; 83735; 84484; 85025; 85610; 85730; 93010; J2405; J3101

== ENCOUNTER 2020-02-03 12:38 | Outpatient (CLI) | payer SELFPAY ==
--- NOTE | 2020-02-03 13:30 | DI.US_ITS ---
EXAM: US LOWER EXTREMITY VENOUS LT CLINICAL HISTORY: left calf pain. recent TN,[id number]. TECHNIQUE: Ultrasound performed using standard protocol. COMPARISON: US US ABDOMEN from 06/04/2018 FINDINGS: Duplex venous ultrasound was performed according to the usual protocol. The deep veins are freely com pressible throughout and there is normal flow augmentation with manual calf compression. 2D and Doppl er evaluation are unremarkable. IMPRESSION: No evidence of deep venous thrombosis of the left lower extremity DATA REPOSITORY:
== END 2020-02-03 12:58 ==
PROVIDERS: PCP Emergency Medicine; Visit Provider Emergency Medicine
DX: M79.662 Pain in left lower leg (principal); I25.2 Old myocardial infarction
CPT/HCPCS: 93971

== ENCOUNTER 2020-02-09 07:46 | Outpatient (CLI) | payer OTHER, SELFPAY ==
[2020-02-11 14:34] LABS: COVID-19 RT-PCR Result NEGATIVE (Negative)
== END 2020-02-09 08:06 ==
PROVIDERS: PCP Emergency Medicine; Visit Provider Family Medicine
DX: Z11.59 Encounter for screening for other viral diseases (principal)
CPT/HCPCS: U0003

== ENCOUNTER 2020-02-12 08:01 | Outpatient (RCR) | payer OTHER, SELFPAY | END 2020-02-20 23:59 | disposition home or self-care (01) | LOC: CR 08:01 | PROVIDERS: PCP Emergency Medicine; Visit Provider Family Medicine | DX: R69 Illness, unspecified (principal) ==

== ENCOUNTER 2020-03-22 10:00 | Outpatient (RCR) | payer OTHER, SELFPAY | END 2020-03-22 23:59 | disposition home or self-care (01) | LOC: CR 10:00 | PROVIDERS: PCP Emergency Medicine; Visit Provider Family Medicine | DX: I25.2 Old myocardial infarction (principal); Z51.89 Encounter for other specified aftercare | CPT/HCPCS: S9472 ==

== ENCOUNTER 2020-04-12 11:00 | Outpatient (RCR) | payer OTHER, SELFPAY | END 2020-04-21 23:59 | disposition home or self-care (01) | LOC: CR 11:00 | PROVIDERS: PCP Emergency Medicine; Visit Provider Family Medicine | DX: I25.2 Old myocardial infarction (principal); Z51.89 Encounter for other specified aftercare | CPT/HCPCS: S9472 ==

== ENCOUNTER 2023-08-16 08:05 | Outpatient (CLI) | payer OTHER, SELFPAY ==
--- NOTE | 2023-08-16 08:00 | RT.EKG_ITS ---
APPROVED REPORT Exam: Resting ECG Reason for Exam: ASCVD Patient Location: O HR:78 bpm ECG Measurements Heart Rate 78 AXIS TN 174 P 47 QRSd 90 QRS -19 QT 370 T 61 QTc 422 Conclusion Sinus rhythm...normal P axis, V-rate 50- 99 Borderline left axis deviation...QRS axis (-15,-29) I have reviewed and interpreted ECG and agree with software generated interpretation.
== END 2023-08-16 08:06 | disposition home or self-care (01) ==
LOC: DI.CARD 08:05
PROVIDERS: Visit Provider Internal Medicine Interventional Cardiology
DX: I25.10 Atherosclerotic heart disease of native coronary artery without angina pectoris (principal)
CPT/HCPCS: 93010